=== PATIENT | male | born 1990 | race Caucasian/White ===

== ENCOUNTER 2023-04-14 11:52 | Outpatient (OUT) | payer OTHER, SELFPAY ==
--- NOTE | 2023-04-14 12:03 | XR_ITS ---
The [address] [address] Patient Name: NAWAF MIRANDA MRN: [id number] date: 1990 Sex: M Assigned Patient Location: RAD Current Patient Location: Accession/Order Number: [id number] Exam Date: 04/14/2023 12:05 Report Date: 04/17/2023 11:24 At the request of: VIKAS GARZA Procedure: XR shoulder RT min 2V PROCEDURE: XR shoulder RT min 2V DATE: 04/14/2023 11:05 AM CDT COMPARISONS: None CLINICAL INDICATION: Shoulder Impingement M25.819 FINDINGS: There is no evidence of fractures or other osseous abnormalities. XR/XR shoulder RT min 2V IMPRESSION: Right shoulder radiographs show no evidence of abnormalities. Electronically authenticated by: SUSANNAH SANON Date: 04/17/2023 11:24
== END 2023-04-14 11:53 | disposition home or self-care (01) ==
LOC: RAD 11:58
PROVIDERS: PCP Family Medicine; Visit Provider Family Medicine
DX: M75.41 Impingement syndrome of right shoulder (principal)
CPT/HCPCS: 73030

== ENCOUNTER 2023-05-24 16:47 | Outpatient (OUT) | payer OTHER, SELFPAY ==
--- NOTE | 2023-05-24 | XR_ITS ---
The [address] [address] Patient Name: NAWAF MIRANDA MRN: [id number] date: 1990 Sex: M Assigned Patient Location: [facility] Current Patient Location: [facility] Accession/Order Number: [id number] Exam Date: 05/24/2023 17:55 Report Date: 05/24/2023 18:56 At the request of: VIKAS GARZA Procedure: XR lumbar spine 2-3V EXAM: XR lumbar spine 2-3V HISTORY: LOW BACK PAIN with twisting injury last night. COMPARISON: None. TECHNIQUE: AP and lateral views of the lumbar spine were obtained. FINDINGS: There is normal curvature and alignment of the vertebral bodies throughout the lumbar spine. The vertebral body heights are intact. Very slight osteophytes are seen arising from the vertebral bodies. There is mild narrowing of the L5-S1 disc space and the remainder the disc spaces are intact. No focal abnormality is seen in the vertebral bodies. There is no evidence of a fracture, subluxation or significant degenerative changes in the facets. The posterior elements are intact. XR/XR lumbar spine 2-3V IMPRESSION: No acute fracture or anterior spondylolisthesis. There is mild narrowing of the L5-S1 disc space and minimal degenerative changes are noted in the lower lumbar spine. Comparison with a previous study may be helpful in confirming the chronicity of these findings. Electronically authenticated by: ARIANNA FARR Date: 05/24/2023 18:56
== END 2023-05-24 16:48 | disposition home or self-care (01) ==
PROVIDERS: PCP Family Medicine; Visit Provider Family Medicine
DX: M54.50 Low back pain, unspecified (principal)
CPT/HCPCS: 72100

== ENCOUNTER 2023-05-26 13:57 | Outpatient (RCR) | payer OTHER, SELFPAY | END 2023-06-17 17:06 | disposition home or self-care (01) | LOC: PT 13:57 | PROVIDERS: PCP Family Medicine; Visit Provider Family Medicine | DX: M25.811 Other specified joint disorders, right shoulder (principal) | CPT/HCPCS: 97010; 97014; 97110; 97140; 97161 ==

== ENCOUNTER 2023-06-23 12:19 | Outpatient (OUT) | payer OTHER, SELFPAY ==
--- NOTE | 2023-06-23 12:26 | MR_ITS ---
[address] [address] Patient Name: NAWAF MIRANDA MRN: [id number] date: 1990 Sex: M Assigned Patient Location: MRI Current Patient Location: MRI Accession/Order Number: [id number] Exam Date: 06/23/2023 12:45 Report Date: 06/23/2023 15:25 At the request of: VIKAS GARZA Procedure: MR shoulder RT wo con EXAM: MR shoulder RT wo con HISTORY: Right shoulder impingement M25.811 COMPARISON: Right shoulder radiographs 04/14/2023 TECHNIQUE: Multi planar, multi sequence MRI imaging of the right shoulder without contrast. FINDINGS: ROTATOR CUFF: Supraspinatus: Focal low-grade partial-thickness, partial width interstitial tear at the critical zone with questionable articular sided and extension. The tear measures 0.7 x 1.1 cm AP X TR (sagittal STIR: 9, coronal PD FS: 13). There is associated thinning delaminating intratendinous cyst extending to the supraspinatus muscle belly. Infraspinatus: Intact. Subscapularis: Intact. Teres minor: Intact. MUSCULATURE: Supraspinatus intramuscular cyst as detailed above. Musculature of the rotator cuff is otherwise normal in bulk and signal characteristics. Remaining musculature of the shoulder girdle is normal in bulk and signal characteristics. LONG HEAD BICEPS TENDON: Intact. GLENOID LABRUM: No displaced labral tear or para labral cyst. OSSEOUS STRUCTURES AND JOINTS: No fracture, dislocation, suspicious bone lesion or edema like bone marrow signal. Osseous acromial outlet: Normal alignment of the acromioclavicular joint with mild osteoarthrosis with subchondral cystic changes and bone marrow edema within the distal clavicle and adjacent acromion. Type 2 acromion without significant downsloping. Physiologic fluid within the subacromial-subdeltoid bursa. Glenohumeral joint: No joint effusion. Articular cartilage is intact. OTHER: No axillary lymphadenopathy or soft tissue mass. MR/MR shoulder RT wo con IMPRESSION: 1. Small focal low-grade partial-thickness, partial width interstitial tear of the supraspinatus tendon at the critical zone. Remainder of the rotator cuff is intact. 2. Acromioclavicular joint osteoarthritis with subchondral cystic changes and reactive bone marrow edema, which could be a source for pain. 3. No displaced labral tear. 4. No acute osseous findings. Electronically authenticated by: CHERYL SANDOVAL Date: 06/23/2023 15:25
== END 2023-06-23 12:20 | disposition home or self-care (01) ==
LOC: MRI 12:20
PROVIDERS: PCP Family Medicine; Visit Provider Family Medicine
DX: M25.811 Other specified joint disorders, right shoulder (principal)
CPT/HCPCS: 73221

== ENCOUNTER 2023-06-29 09:04 | Day surgery (SDC) | payer OTHER, SELFPAY ==
--- NOTE | 2023-06-29 09:23 | FL_ITS ---
[address] [address] Patient Name: NAWAF MIRANDA MRN: [id number] date: 1990 Sex: M Assigned Patient Location: [place] Current Patient Location: [place] Accession/Order Number: [id number] Exam Date: 06/29/2023 10:00 Report Date: 06/29/2023 11:01 At the request of: VIKAS GARZA Procedure: FL guided needle placement EXAMINATION: FL shoulder inj RT, FL guided needle placement HISTORY: Right Shoulder Pain COMPARISON: No relevant comparison available. FLUOROSCOPY TIME: TECHNIQUE: A joint injection was performed in the usual sterile manner after obtaining informed consent. Standard level fluoroscopic mode of operation utilized. FINDINGS: JOINT: Right shoulder NEEDLE: 22 gauge, 3.5 spinal needle. MEDICATION: 2cc buffered 1% lidocaine for subcutaneous anesthesia. 2cc Omnipaque-300 iodinated contrast to visualize the joint space. Mixture of Kenalog 40 mg, 0.5% Bupivacaine 3 mL and Omnipaque 300 3mL was injected into the joint space. TECHNIQUE: Anterior approach. A single stick was successful in gaining access to the joint space. CLINICAL: Decreased pain following injection. (7/10 preinjection; 2/10 post injection) COMPLICATIONS: None. OTHER: Negative. FL/FL guided needle placement IMPRESSION: 1. Successful therapeutic right shoulder injection. Electronically authenticated by: ANAI VILLANUEVA Date: 06/29/2023 11:01
--- NOTE | 2023-06-29 09:23 | FL_ITS ---
The [address] [address] Patient Name: NAWAF MIRANDA MRN: [id number] date: 1990 Sex: M Assigned Patient Location: [place] Current Patient Location: [place] Accession/Order Number: [id number] Exam Date: 06/29/2023 10:00 Report Date: 06/29/2023 11:01 At the request of: VIKAS GARZA Procedure: FL shoulder inj RT EXAMINATION: FL shoulder inj RT, FL guided needle placement HISTORY: Right Shoulder Pain COMPARISON: No relevant comparison available. FLUOROSCOPY TIME: TECHNIQUE: A joint injection was performed in the usual sterile manner after obtaining informed consent. Standard level fluoroscopic mode of operation utilized. FINDINGS: JOINT: Right shoulder NEEDLE: 22 gauge, 3.5 spinal needle. MEDICATION: 2cc buffered 1% lidocaine for subcutaneous anesthesia. 2cc Omnipaque-300 iodinated contrast to visualize the joint space. Mixture of Kenalog 40 mg, 0.5% Bupivacaine 3 mL and Omnipaque 300 3mL was injected into the joint space. TECHNIQUE: Anterior approach. A single stick was successful in gaining access to the joint space. CLINICAL: Decreased pain following injection. (7/10 preinjection; 2/10 post injection) COMPLICATIONS: None. OTHER: Negative. FL/FL shoulder inj RT IMPRESSION: 1. Successful therapeutic right shoulder injection. Electronically authenticated by: ANAI VILLANUEVA Date: 06/29/2023 11:01
[2023-06-29] MEDS: LIDOCAINE HCL 10 ML, SODIUM BICARBONATE 1 MEQ INJ (10:10)
== END 2023-06-29 10:25 | disposition home or self-care (01) ==
LOC: FL 09:04
PROVIDERS: Radiology Diagnostic Radiology; PCP Family Medicine; Visit Provider Family Medicine
DX: M25.511 Pain in right shoulder (principal)
CPT/HCPCS: 20610; 77002; Q9967

== ENCOUNTER 2024-01-27 08:56 | Outpatient (OUT) | payer OTHER, SELFPAY ==
--- NOTE | 2024-01-27 | XR_ITS ---
The [address] [address] Patient Name: NAWAF MIRANDA MRN: [id number] date: 1990 Sex: M Assigned Patient Location: CT Current Patient Location: CT Accession/Order Number: [id number] Exam Date: 01/27/2024 09:30 Report Date: 01/30/2024 06:09 At the request of: VIKAS GARZA Procedure: XR acute abdomen series EXAMINATION: XR acute abdomen series HISTORY: Chronic diarrhea K52.9 , nausea, abdominal pain COMPARISON: No relevant comparison available. FINDINGS: LUNGS: No infiltrate, pneumothorax, or pleural effusion. MEDIASTINUM: No abnormal widening. BOWEL GAS PATTERN: Multiple small fluid levels within the ascending and transverse colon; no abnormal bowel dilation or obstruction. FREE AIR: None. CALCIFICATIONS: None significant. BONES: No fracture or visible bone lesion. OTHER: Negative. XR/XR acute abdomen series IMPRESSION: 1. No acute cardiopulmonary process. 2. No bowel obstruction. Mild enteritis/colitis cannot be completely excluded. Electronically authenticated by: ANAI VILLANUEVA Date: 01/30/2024 06:09
--- NOTE | 2024-01-27 | CT_ITS ---
The [address] [address] Patient Name: NAWAF MIRANDA MRN: [id number] date: 1990 Sex: M Assigned Patient Location: CT Current Patient Location: Accession/Order Number: [id number] Exam Date: 01/27/2024 11:00 Report Date: 01/28/2024 12:32 At the request of: VIKAS GARZA Procedure: CT abdomen pelvis w con CT abdomen pelvis w con HISTORY: Chronic diarrhea K52.9 ADDITIONAL HISTORY: None. TECHNIQUE: CTA abdomen and pelvis contrast. 3D coronal slab MIPs and 2D reconstructions in the coronal and sagittal planes were also created. One of the following dose optimization techniques was utilized in the performance of this exam: Automated exposure control; adjustment of the mA and/or kV according to the patient's size; or use of an iterative reconstruction technique. Specific details can be referenced in the facility's radiology CT exam operational policy. COMPARISON: None. FINDINGS: Vessels: Negative Visualized lung bases: Negative Hepatobiliary: Negative Spleen: Negative Adrenals: Negative Pancreas: Negative Kidneys/: Negative GI: Nonspecific proximal small bowel mural thickening suggestive of enteritis or intrinsic small bowel disease. The terminal ileum appears normal. The appendix is visualized and normal. The colonic mucosa is normal. Spaces/nodes: Negative Bones/soft tissues: Negative CT/CT abdomen pelvis w con IMPRESSION: 1. Nonspecific proximal small bowel mural thickening suggestive of enteritis or intrinsic small bowel disease. Electronically authenticated by: LLUVIA PARKER Date: 01/28/2024 12:32
--- OUTSIDE RECORDS SUMMARY | 2024-01-27 08:58 | XMS_ITS | CCD ---
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 Role Phone DR VIKAS BRYANT Primary Care Unavailable SHAHIDA, DR VENKATESH Bettencourt Attending Unavailyoav PINEDO, DR VENKATESH Bettencourt Consulting Unavailyoav PINEDO, DR VENKATESH Bettencourt Admitting Unavailyoav DO, DR CATALINA Ashton Attending Unavailable ERNESTINA, DR CATALINA Ashton Consulting Unavailable ERNESTINA, DR CATALINA Ashton Admitting Unavailable GREG, DR BEAN Primary Care Unavailable Navjot Damian Consulting Unavailable Vikas Bryant MD Primary Care Provider [phone] ASHWINI PEACOCK Referring Unavailable YE ABARCA Admitting Unavailable PARINJA, ARISTIDES Consulting Unavailable SRUTHI ALDRIDGE Attending Unavailable VIKAS BRYANT Primary Care Unavailable GIULIA SUNSHINE Attending Unavailable MARLENE, ARISTIDES Referring Unavailable VIKAS BRYANT Primary Care Unavailable CHER, BEBETO S Consulting Unavailable GIULIA SUNSHINE Admitting Unavailable MARLENE, ARISTIDES Consulting Unavailable VIKAS BRYANT Primary Care Unavailable LISANDRA OSHEA Attending Unavailable VIKAS BRYANT Primary Care Unavailable LISANDRA OSHEA Attending Unavailable LISANDRA OSHEA Referring Unavailable VIKAS BRYANT Primary Care Unavailable Allergies Allergy Classification Reported Allergen(s) Allergy Type Date of Onset Reaction(s) Facility Pollen (1 source) Bee pollen Substance Allergy [facility] (3 sources) Insect Extract Allergy Skin Test Propensity to adverse reactions to drug 8 [facility] (1 source) Ciprofloxacin; Translations: [CIPROFLOXACIN] Drug Allergy 3 [facility] Rep[facility] Medications Current Medications Medication Drug Class(es) Dates Sig (Normalized) Sig (Original) chlorhexidine gluconate 1.2 mg/ml mouthwash (1 source) Start: 07-31-2022 End: 08-14-2022 take 15 mL by mouth twice daily chlorhexidine (PERIDEX) 0.12 % solution Take 15 mLs by mouth 2 times daily for 14 days 420 mL 0 07/31/2022 08/14/2022 Active clindamycin 300 mg oral capsule (2 sources) Lincosamide Antibacterial Start: 07-31-2022 End: 08-10-2022 take 1 capsule by mouth three times daily clindamycin (CLEOCIN) 300 MG capsule Take 1 capsule by mouth 3 times daily for 10 days 30 capsule 0 07/31/2022 08/10/2022 Active Start: 07-31-2022 End: 07-31-2022 clindamycin (CLEOCIN) capsul e 300 mg hydrOXYzine pamoate 25 mg oral capsule (3 sources) Antihistamine take 1 capsule by mouth three times daily as needed hydrOXYzine pamoate (VISTARIL) 25 MG capsule Take 25 mg by mouth 3 times daily as needed for Itching 0 Active lisinopril 5 mg oral tablet (3 sources) Angiotensin Converting Enzyme Inhibitor take 1 tablet by mouth once daily lisinopril (PRINIVIL;ZESTRIL) 5 MG tablet Take 5 mg by mouth daily 0 Active melatonin 3 mg oral tablet (3 sources) take 1 tablet by mouth once daily melatonin 3 MG TABS tablet Take 3 mg by mouth daily 0 Active 24 hr nicotine 0.875 mg/hr transdermal system (2 sources) Cholinergic Nicotinic Agonist Start: 07-31-20 End: 08-10-20 apply 1 dose transdermal route once daily nicotine (NICODERM CQ) 21 MG/24HR Place 1 patch onto the skin daily for 10 days 10 patch 0 07/31/2022 08/10/2022 Active Start: 07-31-2022 nicotine (KEVIN DERM CQ) 21 MG/24HR 1 patch Completed/Discontinued Medications Medication Drug Class(es) Dates Sig (Normalized) Sig (Original) 1 ml ketorolac tromethamine 30 mg/ml cartridge (1 source) Nonsteroidal Anti-inflammatory Drug, Cyclooxygenase Inhibitor Start: 07-31-2022 End: 07-31-2022 ketorolac (TORADOL) injection 30 mg Problems Active Problems Problem Classification Problem Date Documented Da te Episodic/Chronic Cardiac dysrhythmias (1 source) Tachycardia, unspecified; Translations: [Tachycardia, unspecified] Onset: 11-05-2023 Episodic Disorders of teeth and jaw (2 sources) Toothache; Translations: [Other specified disorders of teeth and supporting structures] Episodic E Codes: Cut/pierceb (1 source) Contact with other powered hand tools and household machinery, initial encounter; Translations: [CONTACT OTH POWER HT AND HH MACH INIT] Onset: 02-09-2021 Episodic Esophageal disorders (1 source) Gastro-esophageal reflux disease without esophagitis; Translations: [Gastro-esophageal reflux disease without esophagitis] Onset: 01-12-2024 Chronic Essential hypertension (2 sources) Essential (primary) hypertension; Translations: [ESSENTIAL PRIMARY HYPERTENSION] Onset: 06-12-2020 Chronic Gastritis and duodenitis (1 source) Acute gastritis without bleeding; Translations: [Acute gastritis without bleeding] Onset: 11-05-2023 Episodic Gastrointestinal hemorrhage (1 source) Hematemesis; Translations: [Hematemesis] Onset: 11-05-2023 Episodic Immunizations and screening for infectious disease (1 source) Encounter for immunization; Translations: [ENCOUNTER FOR IMMUNIZATION] Onset: 02-09-2021 Episodic Mood disorders (2 sources) Unspecified mood [affective] disorder; Translations: [Unspecified mood (affective) disorder] Onset: 09-01-2022 Chronic Nausea and vomiting (1 source) Nausea Onset: 01-12-2024 Episodic Open wounds of extremities (4 sources) Puncture wound without foreign body of left hand, initial encounter; Translations: [PUNCTURE WOUND W/O FB LT HAND INIT] Onset: 02-05-2021 Episodic Other disorders of stomach and duodenum (1 source) Functional dyspepsia; Translations: [Functional dyspepsia] Onset: 01-12-2024 Episodic Other nervous system disorders (1 source) Other chronic pain; Translations: [Other chronic pain] Onset: 01-12-2024 Chronic Other non-traumatic joint disorders (1 source) Pain in right shoulder; Translations: [Pain in right shoulder] Onset: 01-12-2024 Episodic Poisoning by other medications and drugs (2 sources) Poisoning by unspecified drugs, medicaments and biological substances, accidental (unintentional), initial encounter; Translations: [Poisoning by unspecified drugs, medicaments and biological substances, accidental (unintentional), initial encounter] Onset: 11-27-2022 Episodic Sprains and strains (1 source) Sprain of left wrist; Translations: [Unspecified sprain of left wrist, subsequent encounter] Episodic Substance-related disorders (1 source) Nicotine dependence, cigarettes, uncomplicated; Translations: [NICOTINE DEPEND CIGARETTES UNCOMP] Onset: 02-09-2021 Chronic Unclassified (1 source) Vomitting Onset: 01-12-2024 Past or Other Problems Problem Classification Problem Date Documented Da te Episodic/Chronic E Codes: Struck by; against (1 source) Striking against or struck by other objects, initial encounter; Translations: [STRIKING AGNST/STRUCK OTH OBJ INIT] Onset: 06-12-2020 Episodic Other injuries and conditions due to external causes (3 sources) Unspecified injury of right eye and orbit, initial encounter; Translations: [UNS INJURY RT EYE ORBIT INITIAL ENC] Onset: 06-07-2020 Episodic Substance-related disorders (3 sources) Finding related to substance use; Translations: [Other psychoactive substance use, unspecified, uncomplicated] Onset: 06-07-2018 06-07-2018 Episodic Superficial injury; contusion (1 source) Contusion of eyeball and orbital tissues, right eye, initial encounter; Translations: [CONTUS EYEBALL ORB TISS RT EYE INIT] Onset: 06-12-2020 Episodic Results Test Name Value Interpretation Reference Range Facility CBC AND AUTO DIFFon 01-12-20 24 ABSOLUTE BASOPHIL 0.0 X10E9/L Normal 0.0-0.2 [facility] Comment on above: Performed By: #### 1 9123-9, CBCA, 3040-3, CMP #### [facility] ([id number]) [address] [place] [address] 20971 ABSOLUTE NEUTROPHIL 3.9 X10E9/L Normal 1.5-6.6 [facility] Comment on above: Performed By: #### 1 9123-9, CBCA, 3040-3, CMP #### [facility] ([id number]) [address] [place] [address] 14124 Basophils/100 WBC (Bld) 0.2 % Normal [facility] Comment on above: Performed By: #### 1 9123-9, CBCA, 3040-3, CMP #### [facility] ([id number]) [address] [place] [address] 89533 Eosinophils (Bld) [#/Vol] 0.1 10*3/uL Normal 0.0-0.4 [facility] Comment on above: Performed By: #### 1 9123-9, CBCA, 3040-3, CMP #### [facility] ([id number]) [address] [place] [address] 09139 Eosinophils/100 WBC (Bld) 0.9 % Normal [facility] Comment on above: Performed By: #### 1 9123-9, CBCA, 3040-3, CMP #### [facility] ([id number]) [address] [place] [address] 65401 Erythrocyte distribution width (RBC) [Ratio] 13.9 % Normal 11.5-15.0 [facility] Comment on above: Performed By: #### 1 9123-9, CBCA, 3040-3, CMP #### [facility] ([id number]) [address] [place] [address] 05489 Hematocrit (Bld) [Volume fraction] 34.8 % Low 39-49 [facility] Comment on above: Performed By: #### 1 9123-9, CBCA, 3040-3, CMP #### [facility] ([id number]) [address] [place] [address] 82448 Hemoglobin (Bld) [Mass/Vol] 12.4 g/dL Low 13.0-17.0 [facility] Comment on above: Performed By: #### 1 9123-9, CBCA, 3040-3, CMP #### [facility] ([id number]) [address] [place] [address] 71251 Lymphocytes (Bld) [#/Vol] 1.3 10*3/uL Normal 1.0-3.5 [facility] Comment on above: Performed By: #### 1 91-9, CBCA, 3040-3, CMP #### [facility] ([id number]) [address] [place] [address] 25851 Lymphocytes/100 WBC (Bld) 22.0 % Normal [facility] Comment on above: Performed By: #### 1 9122-9, CBCA, 3040-3, CMP #### [facility] ([id number]) [address] [place] [address] 41486 MCH (RBC) [Entitic mass] 33.2 pg Normal 27-34 [facility] Comment on above: Performed By: #### 1 9122-9, CBCA, 3040-3, CMP #### [facility] ([id number]) [address] [place] [address] 30643 MCHC (RBC) [Mass/Vol] 35.5 g/dL Normal 32-36 [facility] Comment on above: Performed By: #### 1 9122-9, CBCA, 3040-3, CMP #### [facility] ([id number]) [address] [place] [address] 20085 MCV (RBC) [Entitic vol] 93 fL Normal 80-100 [facility] Comment on above: Performed By: #### 1 9122-9, CBCA, 3040-3, CMP #### [facility] ([id number]) [address] [place] [address] 20535 Monocytes (Bld) [#/Vol] 0.6 10*3/uL Normal 0-0.9 [facility] Comment on above: Performed By: #### 1 9122-9, CBCA, 3040-3, CMP #### [facility] ([id number]) [address] [place] [address] 69659 Monocytes/100 WBC (Bld) 9.6 % Normal [facility] Comment on above: Performed By: #### 1 9123-9, CBCA, 3040-3, CMP #### [facility] ([id number]) [address] [place] [address] 07403 Neutrophils/100 WBC (Bld) 67.3 % Normal [facility] Comment on above: Performed By: #### 1 9123-9, CBCA, 3040-3, CMP #### [facility] ([id number]) [address] [place] [address] 21292 Platelet mean volume (Bld) [Entitic vol] 7.9 fL Normal 7-12 [facility] Comment on above: Performed By: #### 1 9123-9, CBCA, 3040-3, CMP #### [facility] ([id number]) [address] [place] [address] 06662 Platelets (Bld) [#/Vol] 263 10*3/uL Normal 150-450 [facility] Comment on above: Performed By: #### 1 9123-9, CBCA, 3040-3, CMP #### [facility] ([id number]) [address] [place] [address] 81473 RBC COUNT 3.73 X10E12/L Low 4.10-5.70 [facility] Comment on above: Performed By: #### 1 9123-9, CBCA, 3040-3, CMP #### [facility] ([id number]) [address] [place] [address] 26624 WBC (Bld) [#/Vol] 5.8 10*3/uL Normal 4.0-11.0 [facility] Comment on above: Performed By: #### 1 9123-9, CBCA, 3040-3, CMP #### [facility] ([id number]) [address] [place] [address] 17724 COMPREHENSIVE METABOLIC PANE David 01-12-2024 Albumin [Mass/Vol] 4.0 g/dL Normal 3.2-5.3 [facility] Comment on above: Performed By: #### 1 9123-9, CBCA, 3040-3, CMP #### [facility] ([id number]) [address] [place] [address] 66291 ALP [Catalytic activity/Vol] 39 U/L Normal 39-130 [facility] Comment on above: Performed By: #### 1 91-9, CBCA, 3040-3, CMP #### [facility] ([id number]) [address] [place] [address] 49977 ALT [Catalytic activity/Vol] 31 U/L Normal 0-40 [facility] Comment on above: Performed By: #### 1 91-9, CBCA, 3040-3, CMP #### [facility] ([id number]) [address] [place] [address] 78944 Anion gap [Moles/Vol] 2 mmol/L Low 5-15 [facility] Comment on above: Performed By: #### 1 9123-9, CBCA, 3040-3, CMP #### [facility] ([id number]) [address] [place] [address] 69908 AST [Catalytic activity/Vol] 24 U/L Normal 0-41 [facility] Comment on above: Performed By: #### 1 9123-9, CBCA, 3040-3, CMP #### [facility] ([id number]) [address] [place] [address] 04078 Bilirubin [Mass/Vol] 0.7 mg/dL Normal 0.3-1.2 [facility] Comment on above: Performed By: #### 1 9123-9, CBCA, 3040-3, CMP #### [facility] ([id number]) [address] [place] [address] 58012 Calcium [Mass/Vol] 8.9 mg/dL Normal 8.5-10.5 [facility] Comment on above: Performed By: #### 1 9123-9, CBCA, 3040-3, CMP #### [facility] ([id number]) [address] [place] [address] 83712 Chloride [Moles/Vol] 111 mmol/L High 98-109 [facility] Comment on above: Performed By: #### 1 91-9, CBCA, 3040-3, CMP #### [facility] ([id number]) [address] [place] [address] 24540 CO2 [Moles/Vol] 28 mmol/L Normal 22-32 [facility] Comment on above: Performed By: #### 1 91-9, CBCA, 3040-3, CMP #### [facility] ([id number]) [address] [place] [address] 60042 Creatinine [Mass/Vol] 1.02 mg/dL Normal 0.70-1.20 [facility] Comment on above: Result Comment: METH OD TRACEABLE TO IDMS STANDARD Performed By: #### 1 9123-9, CBCA, 3040-3, CMP #### [facility] ([id number]) [address] [place] [address] 65947 eGFR (CKD-EPI) NON-RACE DEPENDENT >90 Normal >59 [facility] Comment on above: Result Comment: Reported eGFR is based on the CKD-EPI 2021 equation that does not use a race coefficient. Performed By: #### 1 9123-9, CBCA, 3040-3, CMP #### [facility] ([id number]) [address] [place] [address] 28301 Glucose [Mass/Vol] 99 mg/dL Normal 65-99 [facility] Comment on above: Performed By: #### 1 9123-9, CBCA, 3040-3, CMP #### [facility] ([id number]) [address] [place] [address] 42123 Potassium [Moles/Vol] 3.9 mmol/L Normal 3.5-5.0 [facility] Comment on above: Performed By: #### 1 9123-9, CBCA, 3040-3, CMP #### [facility] ([id number]) [address] [place] [address] 10442 Protein [Mass/Vol] 6.7 g/dL Normal 6.0-8.0 [facility] Comment on above: Performed By: #### 1 9123-9, CBCA, 3040-3, CMP #### [facility] ([id number]) [address] [place] [address] 46707 Sodium [Moles/Vol] 141 mmol/L Normal 134-146 [facility] Comment on above: Performed By: #### 1 9123-9, CBCA, 3040-3, CMP #### [facility] ([id number]) [address] [place] [address] 37856 Urea nitrogen [Mass/Vol] 24 mg/dL High 5-23 [facility] Comment on above: Performed By: #### 1 9123-9, CBCA, 3040-3, CMP #### [facility] ([id number]) [address] [place] [address] 82047 LIPASEon 01-12-2024 Lipase [Catalytic activity/Vol] 30 U/L Normal 17-40 [facility] Comment on above: Performed By: #### 1 9123-9, CBCA, 3040-3, CMP #### [facility] ([id number]) [address] [place] [address] 01131 MAGNESIUMon 01-12-2024 Magnesium [Mass/Vol] 1.8 mg/dL Normal 1.8-2.6 [facility] Comment on above: Performed By: #### 1 9123-9, CBCA, 3040-3, CMP #### [facility] ([id number]) [address] [facility] [place], [place] [address] XR CHEST 1 VWon 01-12-2024 XR CHEST 1 VW XR CHEST 1 VW Single view chest History:Atypical chest pain; rule out perforation Difficulty breathing, shortness of breath Comparison: 09/07/2020 Findings: Single portable view of the chest. Stable cardiomediastinal silhouette. No focal opacity, effusion or pneumothorax. The lower neck endotracheal is obscured by overlying jewelry. Impression: No evidence of acute cardiopulmonary process. Finalized by Johan Manrique MD on 01/12/2024 4:37 AM Normal [facility] Thyroxine, Freeon 11-06-2023 Thyroxine, Free 1.8 ng/dL High 0.9-1.7 [facility] Comment on above: Performed By: #### T SH #### [facility] [address] [place] [address] [place] [address] Rn Hemodialysis Charge: Mohinder Rodriguez MD #### FT4 #### [address] [id number] Rn Hemodialysis Charge: Stephan Darby MD APTTon 11-05-2023 aPTT Coag (Bld) [Time] 24.7 s Low 26.8-34.8 [facility] Comment on above: Result Comment: IV Heparin Therapy Range: 62.0-94.0 Performed By: #### U MICAO, UAX #### [facility] [address] [place] [address] [place] [address] Rn Hemodialysis Charge: Mohinder Rodriguez MD CBC with Diffon 11-05-2023 Abs. Basophil 0.05 k/uL Normal 0.00-0.20 [facility] Comment on above: Performed By: #### C P, PTT, PT, CDP, MG, DIME, TROPI #### [facility] [address] [place] [address] [place] [address] Rn Hemodialysis Charge: Mohinder Rodriguez MD Abs. Eosinophil <0.03 Normal 0.00-0.44 [facility] Comment on above: Performed By: #### C P, PTT, PT, CDP, MG, DIME, TROPI #### [facility] [address] [place], [place] [id number] Rn Hemodialysis Charge: Mohinder Rodriguez MD Abs.Imm.Granulocyt e 0.03 k/uL Normal 0.00-0.30 [facility] Comment on above: Performed By: #### C P, PTT, PT, CDP, MG, DIME, TROPI #### [facility] [address] [place], [facility] Rn Hemodialysis Charge: Mohinder Rodriguez MD Abs.Neutrophil (Seg) 7.19 k/uL Normal 1.50-8.10 [facility] Comment on above: Performed By: #### C P, PTT, PT, CDP, MG, DIME, TROPI #### [address] [place], [facility] Rn Hemodialysis Charge: Mohinder Rodriguez MD Basophils/100 WBC (Bld) 1 % Normal 0-2 [facility] Comment on above: Performed By: #### C P, PTT, PT, CDP, MG, DIME, TROPI #### [address] [place] [address] Rn Hemodialysis Charge: Mohinder Rodriguez MD Eosinophils/100 WBC (Bld) 0 % Low 1-4 [facility] Comment on above: Performed By: #### C P, PTT, PT, CDP, MG, DIME, TROPI #### [address] [place] [address] Rn Hemodialysis Charge: Mohinder Rodriguez MD Erythrocyte distribution width (RBC) [Ratio] 11.9 % Normal 11.8-14.4 [facility] Comment on above: Performed By: #### C P, PTT, PT, CDP, MG, DIME, TROPI #### [facility] [address] [place], [place] [address] Rn Hemodialysis Charge: Mohinder Rodriguez MD Hematocrit (Bld) [Volume fraction] 43.8 % Normal 40.7-50.3 [facility] Comment on above: Performed By: #### C P, PTT, PT, CDP, MG, DIME, TROPI #### [facility] [address] [place], [facility] Rn Hemodialysis Charge: Mohinder Rodriguez MD Hemoglobin (Bld) [Mass/Vol] 15.1 g/dL Normal 13.0-17.0 [facility] Comment on above: Performed By: #### C P, PTT, PT, CDP, MG, DIME, TROPI #### [facility] [address] [place], [facility] Rn Hemodialysis Charge: Mohinder Rodriguez MD Immature granulocytes/100 WBC (Bld) 0 % Normal 0 [facility] Comment on above: Performed By: #### C P, PTT, PT, CDP, MG, DIME, TROPI #### [address] [place], [facility] Rn Hemodialysis Charge: Mohinder Rodriguez MD Lymphocytes (Bld) [#/Vol] 1.58 10*3/uL Normal 1.10-3.70 [facility] Comment on above: Performed By: #### C P, PTT, PT, CDP, MG, DIME, TROPI #### [facility] [address] [place], [facility] Rn Hemodialysis Charge: Mohinder Rodriguez MD Lymphocytes/100 WBC (Bld) 16 % Low 24-43 [facility] Comment on above: Performed By: #### C P, PTT, PT, CDP, MG, DIME, TROPI #### [facility] [address] [place] [address] Rn Hemodialysis Charge: Mohinder Rodriguez MD MCH (RBC) [Entitic mass] 32.5 pg Normal 25.2-33.5 [facility] Comment on above: Performed By: #### C P, PTT, PT, CDP, MG, DIME, TROPI #### [facility] [address] [place], [facility] Rn Hemodialysis Charge: Mohinder Rodriguez MD MCHC (RBC) [Mass/Vol] 34.5 g/dL Normal 28.4-34.8 [facility] Comment on above: Performed By: #### C P, PTT, PT, CDP, MG, DIME, TROPI #### [facility] [address] [place], [facility] Rn Hemodialysis Charge: Mohinder Rodriguez MD MCV (RBC) [Entitic vol] 94.2 fL Normal 82.6-102.9 [facility] Comment on above: Performed By: #### C P, PTT, PT, CDP, MG, DIME, TROPI #### [address] [place], [facility] Rn Hemodialysis Charge: Mohinder Rodriguez MD Monocytes (Bld) [#/Vol] 1.15 10*3/uL Normal 0.10-1.20 [facility] Comment on above: Performed By: #### C P, PTT, PT, CDP, MG, DIME, TROPI #### [address] [place], [place] [address] Rn Hemodialysis Charge: Mohinder Rodriguez MD Monocytes/100 WBC (Bld) 12 % Normal 3-12 [facility] Comment on above: Performed By: #### C P, PTT, PT, CDP, MG, DIME, TROPI #### [address] [place], [facility] Rn Hemodialysis Charge: Mohinder Rodriguez MD Neutrophil (Seg) 71 % High 36-65 [facility] Comment on above: Performed By: #### C P, PTT, PT, CDP, MG, DIME, TROPI #### [address] [place] [address] Rn Hemodialysis Charge: Mohinder Rodriguez MD NRBC Automated 0.0 per 100 WBC Normal 0.0 [facility] Comment on above: Performed By: #### C P, PTT, PT, CDP, MG, DIME, TROPI #### [facility] [address] [place] [address] Rn Hemodialysis Charge: Mohinder Rodriguez MD Platelet mean volume (Bld) [Entitic vol] 9.9 fL Normal 8.1-13.5 [facility] Comment on above: Performed By: #### C P, PTT, PT, CDP, MG, DIME, TROPI #### [address] [place], [place] [id number] Rn Hemodialysis Charge: Mohinder Rodriguez MD Platelets (Bld) [#/Vol] 229 10*3/uL Normal 138-453 [facility] Comment on above: Performed By: #### C P, PTT, PT, CDP, MG, DIME, TROPI #### [address] [place], [place] [id number] Rn Hemodialysis Charge: Mohinder Rodriguez MD RBC (Bld) [#/Vol] 4.65 10*6/uL Normal 4.21-5.77 [facility] [facility] Comment on above: Performed By: #### C P, PTT, PT, CDP, MG, DIME, TROPI #### [facility] [address] [place], [place] [id number] Rn Hemodialysis Charge: Mohinder Rodriguez MD WBC (Bld) [#/Vol] 10.0 10*3/uL Normal 3.5-11.3 [facility] Comment on above: Performed By: #### C P, PTT, PT, CDP, MG, DIME, TROPI #### [facility] [address] [place] [address] Rn Hemodialysis Charge: Mohinder Rodriguez MD CT ABDOMEN PELVIS W IV CONTR Erlin 11-05-2023 CT ABDOMEN PELVIS W IV CONTRAST EXAMINATION: CT OF THE ABDOMEN AND PELVIS WITH CONTRAST 11/05/2023 5:19 pm TECHNIQUE: CT of the abdomen and pelvis was performed with the administration of intravenous contrast. Multiplanar reformatted images are provided for review. Automated exposure control, iterative reconstruction, and/or weight based adjustment of the mA/kV was utilized to reduce the radiation dose to as low as reasonably achievable. COMPARISON: None. HISTORY: ORDERING SYSTEM PROVIDED HISTORY: periumbilical pain TECHNOLOGIST PROVIDED HISTORY: periumbilical pain Decision Support Exception - unselect if not a suspected or confirmed emergency medical condition->Emergency Medical Condition (MA) FINDINGS: Lower Chest: No acute abnormality. Liver: Normal. Gallbladder and Bile Ducts: Normal. Spleen: Normal. Adrenal Glands: Normal. Pancreas: Normal. Genitourinary: Normal. Bowel: Normal caliber bowel. Normal appendix. Mild colonic diverticulosis. No acute diverticulitis. Vasculature: Minimal atherosclerosis. Normal caliber abdominal aorta. Patent portal vein. Bones and Soft Tissues: No acute abnormality. Retroperitoneum/Mesent schuyler: No intraperitoneal free air, ascites or fluid collection. No lymphadenopathy in the abdomen or pelvis. IMPRESSION: 1. No acute abnormality in the abdomen or pelvis. 2. Normal caliber bowel and normal appendix. Interpreted by: Yoseph Putnam DO Signed by: Yoseph Putnam DO 11/05/23 Final result Normal [facility] CT CHEST PULMONARY EMBOLISM W CONTRASTon 11-05-2023 CT CHEST PULMONARY EMBOLISM W CONTRAST EXAMINATION: CTA OF THE CHEST 11/05/2023 4:45 pm TECHNIQUE: CTA of the chest was performed after the administration of intravenous contrast. Multiplanar reformatted images are provided for review. MIP images are provided for review. Automated exposure control, iterative reconstruction, and/or weight based adjustment of the mA/kV was utilized to reduce the radiation dose to as low as reasonably achievable. COMPARISON: None. HISTORY: ORDERING SYSTEM PROVIDED HISTORY: hematemesis . borderline ddimer, tachycardia TECHNOLOGIST PROVIDED HISTORY: hematemesis . borderline ddimer, tachycardia Additional Contrast?->1 FINDINGS: Pulmonary Arteries: Pulmonary arteries are adequately opacified for evaluation. No evidence of intraluminal filling defect to suggest pulmonary embolism. Main pulmonary artery is normal in caliber. Mediastinum: No evidence of mediastinal lymphadenopathy. The heart and pericardium demonstrate no acute abnormality. There is no acute abnormality of the thoracic aorta. Lungs/pleura: The lungs are without acute process. No focal consolidation or pulmonary edema. No evidence of pleural effusion or pneumothorax. Upper Abdomen: Limited images of the upper abdomen are unremarkable. Soft Tissues/Bones: No acute bone or soft tissue abnormality. IMPRESSION: No evidence of pulmonary embolism or acute pulmonary abnormality. Interpreted by: Yoseph Putnam DO Signed by: Yoseph Putnam DO 11/05/23 Final result Normal [facility] Comp Metabolic Profon 2023 Calcium [Mass/Vol] 9.4 mg/dL Normal 8.6-10.4 [facility] Comment on above: Performed By: #### U MICAO, UAX #### [facility] [address] [place] [address] Rn Hemodialysis Charge: Mohinder Rodriguez MD Albumin [Mass/Vol] 4.6 g/dL Normal 3.5-5.2 [facility] Comment on above: Performed By: #### U MICAO, UAX #### [facility] [address] [place], [place] [id number] Rn Hemodialysis Charge: Mohinder Rodriguez MD Albumin/Glob Ratio 1.6 Normal 1.0-2.5 [facility] Comment on above: Performed By: #### U MICAO, UAX #### [facility] [address] [place] [address] Rn Hemodialysis Charge: Mohinder Rodriguez MD Alkaline Phos 44 U/L Normal 40-129 [facility] Comment on above: Performed By: #### U MICAO, UAX #### [facility] [address] [place], [place] [id number] Rn Hemodialysis Charge: Mohinder Rodriguez MD ALT [Catalytic activity/Vol] 88 U/L High 5-41 [facility] Comment on above: Performed By: #### U MICAO, UAX #### [facility] [address] [place] [address] Rn Hemodialysis Charge: Mohinder Rodriguez MD Anion gap [Moles/Vol] 11 mmol/L Normal 9-17 [facility] Comment on above: Performed By: #### U MICAO, UAX #### [facility] [address] [place], [place] [id number] Rn Hemodialysis Charge: Mohinder Rodriguez MD AST [Catalytic activity/Vol] 91 U/L High <40 [facility] Comment on above: Performed By: #### U MICAO, UAX #### [facility] [address] [place], [place] [id number] Rn Hemodialysis Charge: Mohinder Rodriguez MD Bilirubin [Mass/Vol] 0.3 mg/dL Normal 0.3-1.2 [facility] Comment on above: Performed By: #### U MICAO, UAX #### [facility] [address] [place] [address] Rn Hemodialysis Charge: Mohinder Rodriguez MD BUN/CRE Ratio 23 High 9-20 [facility] Comment on above: Performed By: #### U MICAO, UAX #### [facility] [address] [place], [place] [id number] Rn Hemodialysis Charge: Mohinder Rodriguez MD Chloride [Moles/Vol] 98 mmol/L Normal 98-107 [facility] Comment on above: Performed By: #### U MICAO, UAX #### [facility] [address] [place], [place] [id number] Rn Hemodialysis Charge: Mohinder Rodriguez MD CO2 [Moles/Vol] 28 mmol/L Normal 20-31 [facility] Comment on above: Performed By: #### U MICAO, UAX #### [facility] [address] [place] [address] Rn Hemodialysis Charge: Mohinder Rodriguez MD Creatinine [Mass/Vol] 0.8 mg/dL Normal 0.7-1.2 [facility] Comment on above: Performed By: #### U MICAO, UAX #### [facility] [address] [place] [address] Rn Hemodialysis Charge: Mohinder Rodriguez MD GFR/1.73 sq M.predicted among non-blacks MDRD (S/P/Bld) [Vol rate/Area] mL/min/{1.73_m2} Normal >60 [facility] Comment on above: Result Comment: These results are not intended for use in patients <18 years of age. eGFR results are calculated without a race factor using the 2020 CKD-EPI equation. Careful clinical correlation is recommended, particularly when comparing to results calculated using previous equations. The CKD-EPI equation is less accurate in patients with extremes of muscle mass, extra-renal metabolism of creatine, excessive creatine ingestion, or following therapy that affects renal tubular secretion. Performed By: #### U IBETH UAX #### [facility] [address] [place] [address] [place] [address] Rn Hemodialysis Charge: Mohinder Rodriguez MD Glucose [Mass/Vol] 94 mg/dL Normal 70-99 [facility] Comment on above: Performed By: #### U IBETH UAX #### [facility] [address] [place] [address] Rn Hemodialysis Charge: Mohinder Rodriguez MD Potassium [Moles/Vol] 3.3 mmol/L Low 3.7-5.3 [facility] Comment on above: Performed By: #### U IBETH UAX #### [facility] [address] [place] [address] Rn Hemodialysis Charge: Mohinder Rodriguez MD Protein [Mass/Vol] 7.4 g/dL Normal 6.4-8.3 [facility] Comment on above: Performed By: #### U IBETH UAX #### [facility] [address] [place] [address] Rn Hemodialysis Charge: Mohinder Rodriguez MD Sodium [Moles/Vol] 137 mmol/L Normal 135-144 [facility] Comment on above: Performed By: #### U MICAO, UAX #### [facility] [address] [place] [address] Rn Hemodialysis Charge: Mohinder Rodriguez MD Urea nitrogen [Mass/Vol] 18 mg/dL Normal 6-20 [facility] Comment on above: Performed By: #### Larisa CRISTINA UAX #### [facility] [address] [place] [address] Rn Hemodialysis Charge: Mohinder Rodriguez MD D-Dimer Teston 11-05-2023 D-Dimer Test 0.58 ug/mL FEU Normal 0.00-0.59 [facility] Comment on above: Result Comment: When combined with a low clinical probability, a D dimer value of <0.50 ug/mL FEU is considered negative for DVT and PE (negative predictive value of 98%, sensitivity of 97%). If this test is not being used to help rule out DVT and PE, then the following reference range should be utilized: 0.00 - 0.59 ug/mL FEU. The D-Dimer assay is intended for use as an aid in the diagnosis of venous thromboembolism (DVT and PE) and the results should be interpreted in conjunction with the patient's medical history, clinical presentation, and other findings. Elevated levels of D-dimer activity can be seen in any state of coagulation activation and is not recommended in patients with therapeutic dose anticoagulant therapy for >24 hours, fibrinolytic therapy within the previous 7 days, trauma or surgery within the previous 4 weeks, disseminated malignancies, aortic aneurysm, sepsis, severe infections, pneumonia, severe skin infections, liver cirrhosis, advanced age, coronary disease, diabetes, and . A very low percentage of patients with DVT may yield D-dimer results below the cutoff of 0.5 ug/mL FEU. This is known to be more prevalent in patients with distal DVT. Performed By: #### Larisa CRISTINA UAX #### [facility] [address] [place] [address] Rn Hemodialysis Charge: Mohinder Rodriguez MD Magnesiumon 11-05-2023 Magnesium [Mass/Vol] 1.8 mg/dL Normal 1.6-2.6 [facility] Comment on above: Performed By: #### U MICAO, UAX #### [address] [place], [place] [id number] Rn Hemodialysis Charge: Mohinder Rodriguez MD Occ Bld, Fecal Scrnon 2023 Occult Blood 1 Negative Normal NEG [facility] Comment on above: Performed By: #### O BS #### [address] [place], [facility] Rn Hemodialysis Charge: Mohinder Rodriguez MD PTon 11-05-2023 INR Coag (PPP) [Relative time] 0.9 {INR} Normal [facility] Comment on above: Result Comment: Therapeutic Range: Moderate Anticoagulant Intensity: INR = 2.0-3.0 High Anticoagulant Intensity: INR = 2.5-3.5 Performed By: #### C P, PTT, PT, CDP, MG, DIME, TROPI #### [address] [place], [facility] Rn Hemodialysis Charge: Mohinder Rodriguez MD PT Coag (PPP) [Time] 12.5 s Normal 11.9-14.8 [facility] Comment on above: Performed By: #### C P, PTT, PT, CDP, MG, DIME, TROPI #### [address] [place], [place] [address] Rn Hemodialysis Charge: Mohinder Rodriguez MD Thyroid Stim. Horm.on 2023 Thyroid Stim. Horm. 1.17 uIU/mL Normal 0.30-5.00 [facility] Comment on above: Performed By: #### T SH #### [address] [place], [facility] Rn Hemodialysis Charge: Mohinder Rodriguez MD #### FT4 #### [address] [id number] Rn Hemodialysis Charge: Stephan Darby MD Troponinon 11-05-2023 Troponin, High Sens 8 ng/L Normal 0-22 [facility] Comment on above: Result Comment: High Sensitivity Troponin values cannot be compared with other Troponin methodologies. Performed By: #### U MICAO, UAX #### [facility] [address] [place], [place] [id number] Rn Hemodialysis Charge: Mohinder Rodriguez MD UA w/Reflex Cultureon 2023 Bilirubin, SemiQt,Ur Negative Normal NEG [facility] Comment on above: Performed By: #### U MICAO, UAX #### [facility] [address] [place], [place] [id number] Rn Hemodialysis Charge: Mohinder Rodriguez MD Blood, Urine Negative Normal NEG [facility] Comment on above: Performed By: #### U MICAO, UAX #### [facility] [address] [place], [place] [address] Rn Hemodialysis Charge: Mohinder Rodriguez MD Clarity (U) Clear Normal CLEAR [facility] Comment on above: Performed By: #### U MICAO, UAX #### [facility] [address] [place], [place] [phone] Rn Hemodialysis Charge: Mohinder Rodriguez MD Color (U) Yellow Normal YEL [facility] Comment on above: Performed By: #### U MICAO, UAX #### [facility] [address] [place], [place] [phone] Rn Hemodialysis Charge: Mohinder Rodriguez MD Glucose Ql (U) Negative Normal NEG [facility] Comment on above: Performed By: #### U MICAO, UAX #### [facility] [address] [place], [place] [id number] Rn Hemodialysis Charge: Mohinder Rodriguez MD Ketones Ql (U) 1+ mg/dL Abnormal NEG [facility] Comment on above: Performed By: #### U MICAO, UAX #### [facility] [address] [place], [place] [phone] Rn Hemodialysis Charge: Mohinder Rodriguez MD Leukocyte esterase Test strip Ql (U) Negative Normal NEG [facility] Comment on above: Performed By: #### U MICAO, UAX #### [facility] [address] [place] [address] Rn Hemodialysis Charge: Mohinder Rodriguez MD Nitrite,Ur Negative Normal NEG [facility] Comment on above: Performed By: #### U MICAO, UAX #### [facility] [address] [place], [place] [id number] Rn Hemodialysis Charge: Mohinder Rodriguez MD PH,Ur 6.5 Normal 5.0-9.0 [facility] Comment on above: Performed By: #### U MICAO, UAX #### [address] [place], [place] [address] Rn Hemodialysis Charge: Mohinder Rodriguez MD Protein Ql (U) Negative Normal NEG [facility] Comment on above: Performed By: #### U MICAO, UAX #### [address] [place], [place] [id number] Rn Hemodialysis Charge: Mohinder Rodriguez MD Spec. [place],Ur <1.005 Low 1.010-1.020 [facility] Comment on above: Performed By: #### U MICAO, UAX #### [facility] [address] [place] [address] Dr. [place], [place] 20[address]83 Rn Hemodialysis Charge: Mohinder Rodriguez MD Urobilinogen,Ur Normal Normal 0.0-1.0 [facility] Comment on above: Performed By: #### U MICAO, UAX #### [address] [place] [address] Rn Hemodialysis Charge: Mohinder Rodriguez MD Urinalysis,Microon 4 Bacteria 1+ Abnormal NONE [facility] Comment on above: Performed By: #### U MICAO, UAX #### [facility] [address] [place] [address] Dr. [place], [place] [id number] Rn Hemodialysis Charge: Mohinder Rodriguez MD Epithelial cells LM Ql (Urine sed) None Normal 0-5 [facility] Comment on above: Performed By: #### U MICAO, UAX #### [facility] [address] [place], [place] [phone] Rn Hemodialysis Charge: Mohinder Rodriguez MD Mucus Strands TRACE Abnormal NONE [facility] Comment on above: Performed By: #### U MICAO, UAX #### [facility] [address] [place], [place] [address] Rn Hemodialysis Charge: Mohinder Rodriguez MD Urine RBC's None Normal 0-2 [facility] Comment on above: Performed By: #### U MICAO, UAX #### [facility] [address] [place] [address] Rn Hemodialysis Charge: Mohinder Rodriguez MD Urine WBC's 0 TO 2 Normal 0-5 [facility] Comment on above: Performed By: #### U MICAO, UAX #### [facility] [address] [place] [address] Rn Hemodialysis Charge: Mohinder Rodriguez MD XR CHEST PORTABLEon 11-05-19 XR CHEST PORTABLE EXAMINATION: ONE XRAY VIEW OF THE CHEST 11/05/2023 3:58 pm COMPARISON: None. HISTORY: ORDERING SYSTEM PROVIDED HISTORY: hematemesis TECHNOLOGIST PROVIDED HISTORY: hematemesis FINDINGS: The heart, mediastinum and pulmonary vascularity are normal. Lungs are well-expanded and clear. No skeletal abnormalities are present in the chest. IMPRESSION: No significant findings in the chest. Interpreted by: Marc Paul IV, MD Signed by: Marc Paul IV, MD 11/05/23 Final result Normal [facility] Comp Metabolic Profon 2021 Albumin [Mass/Vol] 3.4 g/dL Low 3.5-5.2 [facility] Comment on above: Performed By: #### C K, CP #### [facility] [address] [facility] [place] [address] Rn Hemodialysis Charge: Maximino Monzon DO Alkaline Phos 40 U/L Normal 40-129 [facility] Comment on above: Performed By: #### Milagros Britt, CP #### [facility] [address] [place] [address] Rn Hemodialysis Charge: Maximino Monzon DO ALT [Catalytic activity/Vol] 354 U/L High 5-41 [facility] Comment on above: Performed By: #### Milagros Britt, CP #### [facility] [address] [place] [address] Rn Hemodialysis Charge: Maximino Monzon DO Anion gap [Moles/Vol] 7 mmol/L Low 9-17 [facility] Comment on above: Performed By: #### Milagros Britt, CP #### [facility] [address] [place] [address] Rn Hemodialysis Charge: Maximino Monzon DO AST [Catalytic activity/Vol] 154 U/L High <40 [facility] Comment on above: Performed By: #### Milagros Britt, CP #### [facility] [address] [place] [address] Rn Hemodialysis Charge: Maximino Monzon DO Bilirubin [Mass/Vol] 0.4 mg/dL Normal 0.3-1.2 [facility] Comment on above: Performed By: #### Milagros Britt, CP #### [facility] [address] [place] [address] Rn Hemodialysis Charge: Maximino Monzon DO Calcium [Mass/Vol] 8.7 mg/dL Normal 8.6-10.4 [facility] Comment on above: Performed By: #### Milagros Birtt, CP #### [facility] [address] [place] [address] Rn Hemodialysis Charge: Maximino Monzon DO Chloride [Moles/Vol] 105 mmol/L Normal 98-107 [facility] Comment on above: Performed By: #### Milagros Britt, CP #### [facility] [address] [facility] [place] [address] Rn Hemodialysis Charge: Maximino Monzon DO CO2 [Moles/Vol] 29 mmol/L Normal 20-31 [facility] Comment on above: Performed By: #### Milagros Britt, CP #### [facility] [address] [facility] [place] [address] Rn Hemodialysis Charge: Maximino Monzon DO Creatinine [Mass/Vol] 0.73 mg/dL Normal 0.70-1.20 [facility] Comment on above: Performed By: #### Milagros Britt, LEROY #### [facility] [address] [place] [address]. [place] [address] Rn Hemodialysis Charge: Maximino Monzon DO GFR/1.73 sq M.predicted among non-blacks MDRD (S/P/Bld) [Vol rate/Area] mL/min/{1.73_m2} Normal >60 [facility] Comment on above: Result Comment: Effective Jul 04, 2022 These results are not intended for use in patients <18 years of age. eGFR results are calculated without a race factor using the 2020 CKD-EPI equation. Careful clinical correlation is recommended, particularly when comparing to results calculated using previous equations. The CKD-EPI equation is less accurate in patients with extremes of muscle mass, extra-renal metabolism of creatine, excessive creatine ingestion, or following therapy that affects renal tubular secretion. Performed By: #### Milagros Britt, CP #### [facility] [address] [facility] [place] [address] Rn Hemodialysis Charge: Maximino Monzon DO Glucose [Mass/Vol] 74 mg/dL Normal 70-99 [facility] Comment on above: Performed By: #### Milagros Britt, CP #### [facility] [facility] [place] [address] Rn Hemodialysis Charge: Maximino Monzon DO Potassium [Moles/Vol] 4.7 mmol/L Normal 3.7-5.3 [facility] Comment on above: Performed By: #### Milagros Britt, CP #### [facility] [address] [place] [address] Rn Hemodialysis Charge: Maximino Monzon DO Protein [Mass/Vol] 5.8 g/dL Low 6.4-8.3 [facility] Comment on above: Performed By: #### Milagros Britt, CP #### [facility] [address] [place] [address] Rn Hemodialysis Charge: Maximino Monzon DO Sodium [Moles/Vol] 141 mmol/L Normal 135-144 [facility] Comment on above: Performed By: #### Milagros Britt, CP #### [facility] [address] [place] [address] Rn Hemodialysis Charge: Maximino Monzon DO Urea nitrogen [Mass/Vol] 9 mg/dL Normal 6-20 [facility] Comment on above: Performed By: #### Milagros Britt, CP #### [facility] [address] [facility] [place] [address] Rn Hemodialysis Charge: Maximino Monzon DO Creatine Kinaseon 09-02-2022 CK [Catalytic activity/Vol] 1398 U/L High 39-308 [facility] Comment on above: Performed By: #### Milagros Britt, CP #### [facility] [address] [place] [address] Rn Hemodialysis Charge: Maximino Monzon DO Cult, Bloodon 09-02-2022 Cult, Blood Specimen Description .BLOOD Special Requests R HNAD 13 ML Culture NO GROWTH 5 DAYS Report Status FINAL 09/02/2022 Normal [facility] Comment on above: Performed By: #### B CUL2 #### [employer] [address] [place] [address] Rn Hemodialysis Charge: Stephan Darby MD Cult,Bloodon 09-02-2022 Cult,Blood Specimen Description .BLOOD Special Requests L HAND 13 ML Culture NO GROWTH 5 DAYS Report Status FINAL 09/02/2022 Normal [facility] Comment on above: Performed By: #### U IBETH, UAX #### [facility] [address] [place] [address] Rn Hemodialysis Charge: Stephan Darby MD Basic Metab w/rfx MGon 08-31 Anion gap [Moles/Vol] 6 mmol/L Low 9-17 [facility] Comment on above: Performed By: #### U IBETH UAX #### [facility] [address] [place] [address] Rn Hemodialysis Charge: Stephan Darby MD Calcium [Mass/Vol] 8.1 mg/dL Low 8.6-10.4 [facility] Comment on above: Performed By: #### U IBETH UAX #### [facility] [address] [place] [address] Rn Hemodialysis Charge: Stephan Darby MD Chloride [Moles/Vol] 110 mmol/L High 98-107 [facility] Comment on above: Performed By: #### U IBETH, UAX #### [facility] [address] [place] [address] Rn Hemodialysis Charge: Stephan Darby MD CO2 [Moles/Vol] 23 mmol/L Normal 20-31 [facility] Comment on above: Performed By: #### U IBETH UAX #### [facility] [address] [place] [address] Rn Hemodialysis Charge: Stephan Darby MD Creatinine [Mass/Vol] 0.57 mg/dL Low 0.70-1.20 [facility] Comment on above: Performed By: #### U IBETH, UAX #### [employer] [address] [place] [address] Rn Hemodialysis Charge: Stephan Darby MD GFR/1.73 sq M.predicted among non-blacks MDRD (S/P/Bld) [Vol rate/Area] mL/min/{1.73_m2} Normal >60 [facility] Comment on above: Result Comment: Effective Jul 04, 2022 These results are not intended for use in patients <18 years of age. eGFR results are calculated without a race factor using the 2020 CKD-EPI equation. Careful clinical correlation is recommended, particularly when comparing to results calculated using previous equations. The CKD-EPI equation is less accurate in patients with extremes of muscle mass, extra-renal metabolism of creatine, excessive creatine ingestion, or following therapy that affects renal tubular secretion. Performed By: #### U IBETH UAX #### [facility] [address] [place] [address] Rn Hemodialysis Charge: Stephan Darby MD Glucose [Mass/Vol] 101 mg/dL High 70-99 [facility] Comment on above: Performed By: #### U IBETH UAX #### [facility] [address] [place] [address] Rn Hemodialysis Charge: Stephan Darby MD Potassium [Moles/Vol] 3.9 mmol/L Normal 3.7-5.3 [facility] Comment on above: Performed By: #### U IBETH UAX #### [facility] [address] [place] [address] Rn Hemodialysis Charge: Stephan Darby MD Sodium [Moles/Vol] 139 mmol/L Normal 135-144 [facility] Comment on above: Performed By: #### U NOHEMYO, UAX #### [facility] [address] [place] [address] Rn Hemodialysis Charge: Stephan Darby MD Urea nitrogen [Mass/Vol] 8 mg/dL Normal 6-20 [facility] Comment on above: Performed By: #### U MICAO, UAX #### [address] [address] Rn Hemodialysis Charge: Stephan Darby MD CBC with Diffon 08-31-2022 Abs. Basophil 0.04 k/uL Normal 0.00-0.20 [facility] Comment on above: Performed By: #### U IBETH, UAX #### [address] [address] Rn Hemodialysis Charge: Stephan Darby MD Abs.Imm.Granulocyt e <0.03 Normal 0.00-0.30 [facility] Comment on above: Performed By: #### U IBETH UAX #### [address] [address] Rn Hemodialysis Charge: Stephan Darby MD Abs.Neutrophil (Seg) 3.68 k/uL Normal 1.50-8.10 [facility] Comment on above: Performed By: #### U IBETH, UAX #### [address] [address] Rn Hemodialysis Charge: Stephan Darby MD Basophils/100 WBC (Bld) 1 % Normal 0-2 [facility] Comment on above: Performed By: #### U IBETH, UAX #### [address] [address] Rn Hemodialysis Charge: Stephan Darby MD Eosinophils (Bld) [#/Vol] 0.06 10*3/uL Normal 0.00-0.44 [facility] Comment on above: Performed By: #### U IBETH, UAX #### [address] [address] Rn Hemodialysis Charge: Stephan Darby MD Eosinophils/100 WBC (Bld) 1 % Normal 1-4 [facility] Comment on above: Performed By: #### U IBETH, UAX #### [facility] [address] [place] [address] Rn Hemodialysis Charge: Stephan Darby MD Erythrocyte distribution width (RBC) [Ratio] 12.8 % Normal 11.8-14.4 [facility] Comment on above: Performed By: #### U NOHEMYO, UAX #### [facility] [address] [place] [address] Rn Hemodialysis Charge: Stephan Darby MD Hematocrit (Bld) [Volume fraction] 38.7 % Low 40.7-50.3 [facility] Comment on above: Performed By: #### U IBETH, UAX #### [facility] [address] [place] [address] Rn Hemodialysis Charge: Stephan Darby MD Hemoglobin (Bld) [Mass/Vol] 12.7 g/dL Low 13.0-17.0 [facility] Comment on above: Performed By: #### U IBETH, UAX #### [facility] [address] [place] [address] Rn Hemodialysis Charge: Stephan Darby MD Immature granulocytes/100 WBC (Bld) 0 % Normal 0 [facility] Comment on above: Performed By: #### U IBETH, UAX #### [facility] [address] [place] [address] Rn Hemodialysis Charge: Stephan Darby MD Lymphocytes (Bld) [#/Vol] 1.08 10*3/uL Low 1.10-3.70 [facility] Comment on above: Performed By: #### U IBETH, UAX #### [facility] [address] [place] [address] Rn Hemodialysis Charge: Stephan Darby MD Lymphocytes/100 WBC (Bld) 20 % Low 24-43 [facility] Comment on above: Performed By: #### U IBETH, UAX #### [facility] [address] [place] [address] Rn Hemodialysis Charge: Stephan Darby MD MCH (RBC) [Entitic mass] 32.1 pg Normal 25.2-33.5 [facility] Comment on above: Performed By: #### U IBETH, UAX #### [address] [address] Rn Hemodialysis Charge: Stephan Darby MD MCHC (RBC) [Mass/Vol] 32.8 g/dL Normal 28.4-34.8 [facility] Comment on above: Performed By: #### U IBETH, UAX #### [address] [address] Rn Hemodialysis Charge: Stephan Darby MD MCV (RBC) [Entitic vol] 97.7 fL Normal 82.6-102.9 [facility] Comment on above: Performed By: #### U IBETH UAX #### [address] [address] Rn Hemodialysis Charge: Stephan Darby MD Monocytes (Bld) [#/Vol] 0.60 10*3/uL Normal 0.10-1.20 [facility] Comment on above: Performed By: #### U IBETH, UAX #### [address] [address] Rn Hemodialysis Charge: Stephan Darby MD Monocytes/100 WBC (Bld) 11 % Normal 3-12 [facility] Comment on above: Performed By: #### U IBETH, UAX #### [address] [address] Rn Hemodialysis Charge: Stephan Darby MD Neutrophil (Seg) 67 % High 36-[address] [facility] Comment on above: Performed By: #### U IBETH, UAX #### [address] [address] Rn Hemodialysis Charge: Stephan Darby MD NRBC Automated 0.0 per 100 WBC Normal 0.0 [facility] Comment on above: Performed By: #### U NOHEMYO, UAX #### [facility] [address] [place] [address] Rn Hemodialysis Charge: Stephan Darby MD Platelet mean volume (Bld) [Entitic vol] 11.1 fL Normal 8.1-13.5 [facility] Comment on above: Performed By: #### U NOHEMYO, UAX #### [facility] [address] [place] [address] Rn Hemodialysis Charge: Stephan Darby MD Platelets (Bld) [#/Vol] 164 10*3/uL Normal 138-453 [facility] Comment on above: Performed By: #### U IBETH, UAX #### [address] [address] Rn Hemodialysis Charge: Stephan Darby MD RBC (Bld) [#/Vol] 3.96 10*6/uL Low 4.21-5.77 [facility] Comment on above: Performed By: #### U IBETH, UAX #### [address] [address] Rn Hemodialysis Charge: Stephan Darby MD WBC (Bld) [#/Vol] 5.5 10*3/uL Normal 3.5-11.3 [facility] Comment on above: Performed By: #### U NOHEMYO, UAX #### [address] [address] Rn Hemodialysis Charge: Stephan Darby MD Creatine Kinaseon 08-31-2022 CK [Catalytic activity/Vol] 3882 U/L High 39-308 [facility] Comment on above: Performed By: #### C DP, LACTIC, BMPX, TAYLOR, CK #### [address] [address] Rn Hemodialysis Charge: Stephan Darby MD Myoglobinon 08-31-2022 Myoglobin [Mass/Vol] 64 ng/mL Normal 28-72 [facility] Comment on above: Performed By: #### C DP, LACTIC, BMPX, TAYLOR, CK #### [address] [address] Rn Hemodialysis Charge: Stephan Darby MD Basic Metab w/rfx MGon 08-30 Anion gap [Moles/Vol] 8 mmol/L Low 9-17 [facility] Comment on above: Performed By: #### C DP, LACTIC, BMPX, TAYLOR, CK #### [address] [address] Rn Hemodialysis Charge: Stephan Darby MD Calcium [Mass/Vol] 7.5 mg/dL Low 8.6-10.4 [facility] Comment on above: Performed By: #### C DP, LACTIC, BMPX, TAYLOR, CK #### [address] [address] Rn Hemodialysis Charge: Stehpan Darby MD Chloride [Moles/Vol] 110 mmol/L High 98-107 [facility] Comment on above: Performed By: #### C DP, LACTIC, BMPX, TAYLOR, CK #### [address] [address] Rn Hemodialysis Charge: Stephan Darby MD CO2 [Moles/Vol] 22 mmol/L Normal 20-31 [facility] Comment on above: Performed By: #### C DP, LACTIC, BMPX, TAYLOR, CK #### [address] [address] Rn Hemodialysis Charge: Stephan Darby MD Creatinine [Mass/Vol] 0.57 mg/dL Low 0.70-1.20 [facility] Comment on above: Performed By: #### C DP, LACTIC, BMPX, TAYLOR, CK #### [facility] [address] [place] [address] Rn Hemodialysis Charge: Stephan Darby MD GFR/1.73 sq M.predicted among non-blacks MDRD (S/P/Bld) [Vol rate/Area] mL/min/{1.73_m2} Normal >60 [facility] Comment on above: Result Comment: Effective Jul 04, 2022 These results are not intended for use in patients <18 years of age. eGFR results are calculated without a race factor using the 2020 CKD-EPI equation. Careful clinical correlation is recommended, particularly when comparing to results calculated using previous equations. The CKD-EPI equation is less accurate in patients with extremes of muscle mass, extra-renal metabolism of creatine, excessive creatine ingestion, or following therapy that affects renal tubular secretion. Performed By: #### C DP, LACTIC, BMPX, TAYLOR, CK #### [address] [address] Rn Hemodialysis Charge: Stephan Darby MD Glucose [Mass/Vol] 75 mg/dL Normal 70-99 [facility] Comment on above: Performed By: #### C DP, LACTIC, BMPX, TAYLOR, CK #### [address] [address] Rn Hemodialysis Charge: Stephan Darby MD Potassium [Moles/Vol] 4.0 mmol/L Normal 3.7-5.3 [facility] Comment on above: Performed By: #### C DP, LACTIC, BMPX, TAYLOR, CK #### [facility] [address] [place] [address] Rn Hemodialysis Charge: Stephan Darby MD Sodium [Moles/Vol] 140 mmol/L Normal 135-144 [facility] Comment on above: Performed By: #### C DP, LACTIC, BMPX, TAYLOR, CK #### [facility] [address] [place] [address] Rn Hemodialysis Charge: Stephan Darby MD Urea nitrogen [Mass/Vol] 13 mg/dL Normal 6-20 [facility] Comment on above: Performed By: #### C DP, LACTIC, BMPX, TAYLOR, CK #### [address] [address] Rn Hemodialysis Charge: Stephan Darby MD CBC with Diffon 08-30-2022 Abs. Basophil 0.05 k/uL Normal 0.00-0.20 [facility] Comment on above: Performed By: #### C DP, LACTIC, BMPX, TAYLOR, CK #### [place] [address] Rn Hemodialysis Charge: Stephan Darby MD Abs.Imm.Granulocyt e <0.03 Normal 0.00-0.30 [facility] Comment on above: Performed By: #### C DP, LACTIC, BMPX, TAYLOR, CK #### [place] [address] Rn Hemodialysis Charge: Stephan Darby MD Abs.Neutrophil (Seg) 3.71 k/uL Normal 1.50-8.10 [facility] Comment on above: Performed By: #### C DP, LACTIC, BMPX, TAYLOR, CK #### [place] [address] Rn Hemodialysis Charge: Stephan Darby MD Basophils/100 WBC (Bld) 1 % Normal 0-2 [facility] Comment on above: Performed By: #### C DP, LACTIC, BMPX, TAYLOR, CK #### [place] [address] Rn Hemodialysis Charge: Stephan Darby MD Eosinophils (Bld) [#/Vol] 0.04 10*3/uL Normal 0.00-0.44 [facility] Comment on above: Performed By: #### C DP, LACTIC, BMPX, TAYLOR, CK #### [address] [address] Rn Hemodialysis Charge: Stephan Darby MD Eosinophils/100 WBC (Bld) 1 % Normal 1-4 [facility] Comment on above: Performed By: #### C DP, LACTIC, BMPX, TAYLOR, CK #### [address] [address] Rn Hemodialysis Charge: Stephan Darby MD Erythrocyte distribution width (RBC) [Ratio] 13.1 % Normal 11.8-14.4 [facility] Comment on above: Performed By: #### C DP, LACTIC, BMPX, TAYLOR, CK #### [place] [address] Rn Hemodialysis Charge: Stephan Darby MD Hematocrit (Bld) [Volume fraction] 36.9 % Low 40.7-50.3 [facility] Comment on above: Performed By: #### C DP, LACTIC, BMPX, TAYLOR, CK #### [place] [address] Rn Hemodialysis Charge: Stephan Darby MD Hemoglobin (Bld) [Mass/Vol] 11.9 g/dL Low 13.0-17.0 [facility] Comment on above: Performed By: #### C DP, LACTIC, BMPX, TAYLOR, CK #### [address] [address] Rn Hemodialysis Charge: Stephan Darby MD Immature granulocytes/100 WBC (Bld) 0 % Normal 0 [facility] Comment on above: Performed By: #### C DP, LACTIC, BMPX, TAYLOR, CK #### [place] [address] Rn Hemodialysis Charge: Stephan Darby MD Lymphocytes (Bld) [#/Vol] 1.76 10*3/uL Normal 1.10-3.70 [facility] Comment on above: Performed By: #### C DP, LACTIC, BMPX, TAYLOR, CK #### [place] [address] Rn Hemodialysis Charge: Stephan Darby MD Lymphocytes/100 WBC (Bld) 28 % Normal 24-43 [facility] Comment on above: Performed By: #### C DP, LACTIC, BMPX, TAYLOR, CK #### [address] [address] Rn Hemodialysis Charge: Stephan Darby MD MCH (RBC) [Entitic mass] 32.4 pg Normal 25.2-33.5 [facility] Comment on above: Performed By: #### C DP, LACTIC, BMPX, TAYLOR, CK #### [address] [address] Rn Hemodialysis Charge: Stephan Darby MD MCHC (RBC) [Mass/Vol] 32.2 g/dL Normal 28.4-34.8 [facility] Comment on above: Performed By: #### C DP, LACTIC, BMPX, TAYLOR, CK #### [place] [address] Rn Hemodialysis Charge: Stephan Darby MD MCV (RBC) [Entitic vol] 100.5 fL Normal 82.6-102.9 [facility] Comment on above: Performed By: #### C DP, LACTIC, BMPX, TAYLOR, CK #### [address] [address] Rn Hemodialysis Charge: Stephan Darby MD Monocytes (Bld) [#/Vol] 0.62 10*3/uL Normal 0.10-1.20 [facility] Comment on above: Performed By: #### C DP, LACTIC, BMPX, TAYLOR, CK #### [address] [address] Rn Hemodialysis Charge: Stephan Darby MD Monocytes/100 WBC (Bld) 10 % Normal 3-12 [facility] Comment on above: Performed By: #### C DP, LACTIC, BMPX, TAYLOR, CK #### [place] [address] Rn Hemodialysis Charge: Stephan Darby MD Neutrophil (Seg) 60 % Normal 36-[address] [facility] Comment on above: Performed By: #### C DP, LACTIC, BMPX, TAYLOR, CK #### [address] [address] Rn Hemodialysis Charge: Stephan Darby MD NRBC Automated 0.0 per 100 WBC Normal 0.0 [facility] Comment on above: Performed By: #### C DP, LACTIC, BMPX, TAYLOR, CK #### [address] [address] Rn Hemodialysis Charge: Stephan Darby MD Platelet mean volume (Bld) [Entitic vol] 11.0 fL Normal 8.1-13.5 [facility] Comment on above: Performed By: #### C DP, LACTIC, BMPX, TAYLOR, CK #### [address] [address] Rn Hemodialysis Charge: Stephan Darby MD Platelets (Bld) [#/Vol] 151 10*3/uL Normal 138-453 [facility] Comment on above: Performed By: #### C DP, LACTIC, BMPX, TAYLOR, CK #### [address] [address] Rn Hemodialysis Charge: Stephan Darby MD RBC (Bld) [#/Vol] 3.67 10*6/uL Low 4.21-5.77 [facility] Comment on above: Performed By: #### C DP, LACTIC, BMPX, TAYLOR, CK #### [address] [address] Rn Hemodialysis Charge: Stephan Darby MD WBC (Bld) [#/Vol] 6.2 10*3/uL Normal 3.5-11.3 [facility] Comment on above: Performed By: #### C DP, LACTIC, BMPX, TAYLOR, CK #### [facility] [address] [place] [address] Rn Hemodialysis Charge: Stephan Darby MD Creatine Kinaseon 08-30-2022 CK [Catalytic activity/Vol] 4798 U/L High 39-308 [facility] Comment on above: Performed By: #### C DP, LACTIC, BMPX, TAYLOR, CK #### [address] [address] Rn Hemodialysis Charge: Stephan Darby MD CK [Catalytic activity/Vol] 5326 U/L High 39-308 [facility] Comment on above: Performed By: #### C DP, LACTIC, BMPX, TAYLOR, CK #### [address] [address] Rn Hemodialysis Charge: Stephan Darby MD Myoglobinon 08-30-2022 Myoglobin [Mass/Vol] 211 ng/mL High 28-72 [facility] Comment on above: Performed By: #### C DP, LACTIC, BMPX, TAYLOR, CK #### [address] [address] Rn Hemodialysis Charge: Stephan Darby MD Basic Metab w/rfx MGon 08-29 Anion gap [Moles/Vol] 11 mmol/L Normal 9-17 [facility] Comment on above: Performed By: #### C DP, LACTIC, BMPX, TAYLOR, CK #### [address] [address] Rn Hemodialysis Charge: Stephan Darby MD Calcium [Mass/Vol] 7.7 mg/dL Low 8.6-10.4 [facility] Comment on above: Performed By: #### C DP, LACTIC, BMPX, TAYLOR, CK #### [facility] [address] [place] [address] Rn Hemodialysis Charge: Stephan Darby MD Chloride [Moles/Vol] 109 mmol/L High 98-107 [facility] Comment on above: Performed By: #### C DP, LACTIC, BMPX, TAYLOR, CK #### [address] [address] Rn Hemodialysis Charge: Stephan Darby MD CO2 [Moles/Vol] 21 mmol/L Normal 20-31 [facility] Comment on above: Performed By: #### C DP, LACTIC, BMPX, TAYLOR, CK #### [address] [address] Rn Hemodialysis Charge: Stephan Darby MD Creatinine [Mass/Vol] 0.80 mg/dL Normal 0.70-1.20 [facility] Comment on above: Performed By: #### C DP, LACTIC, BMPX, TAYLOR, CK #### [address] [address] Rn Hemodialysis Charge: Stephan Darby MD GFR/1.73 sq M.predicted among non-blacks MDRD (S/P/Bld) [Vol rate/Area] mL/min/{1.73_m2} Normal >60 [facility] Comment on above: Result Comment: Effective Jul 04, 2022 These results are not intended for use in patients <18 years of age. eGFR results are calculated without a race factor using the 2020 CKD-EPI equation. Careful clinical correlation is recommended, particularly when comparing to results calculated using previous equations. The CKD-EPI equation is less accurate in patients with extremes of muscle mass, extra-renal metabolism of creatine, excessive creatine ingestion, or following therapy that affects renal tubular secretion. Performed By: #### C DP, LACTIC, BMPX, TAYLOR, CK #### [address] [address] Rn Hemodialysis Charge: Stephan Darby MD Glucose [Mass/Vol] 73 mg/dL Normal 70-99 [facility] Comment on above: Performed By: #### C DP, LACTIC, BMPX, TAYLOR, CK #### [address] [address] Rn Hemodialysis Charge: Stephan Darby MD Potassium [Moles/Vol] 3.7 mmol/L Normal 3.7-5.3 [facility] Comment on above: Performed By: #### C DP, LACTIC, BMPX, TAYLOR, CK #### [address] [id number] Rn Hemodialysis Charge: Stephan Darby MD Sodium [Moles/Vol] 141 mmol/L Normal 135-144 [facility] Comment on above: Performed By: #### C DP, LACTIC, BMPX, TAYLOR, CK #### [place] [address] Rn Hemodialysis Charge: Stephan Darby MD Urea nitrogen [Mass/Vol] 21 mg/dL High 6-20 [facility] Comment on above: Performed By: #### C DP, LACTIC, BMPX, TAYLOR, CK #### [place] [address] Rn Hemodialysis Charge: Stephan Darby MD CBC with Diffon 08-29-2022 Abs. Basophil 0.04 k/uL Normal 0.00-0.20 [facility] Comment on above: Performed By: #### C DP, LACTIC, BMPX, TAYLOR, CK #### [place] [address] Rn Hemodialysis Charge: Stephan Darby MD Abs.Imm.Granulocyt e <0.03 Normal 0.00-0.30 [facility] Comment on above: Performed By: #### C DP, LACTIC, BMPX, TAYLOR, CK #### [place] [address] Rn Hemodialysis Charge: Stephan Darby MD Abs.Neutrophil (Seg) 4.89 k/uL Normal 1.50-8.10 [facility] Comment on above: Performed By: #### C DP, LACTIC, BMPX, TAYLOR, CK #### [address] [place] [address] Rn Hemodialysis Charge: Stephan Darby MD Basophils/100 WBC (Bld) 1 % Normal 0-2 [facility] Comment on above: Performed By: #### C DP, LACTIC, BMPX, TAYLOR, CK #### [address] [address] Rn Hemodialysis Charge: Stephan Darby MD Eosinophils (Bld) [#/Vol] 0.07 10*3/uL Normal 0.00-0.44 [facility] Comment on above: Performed By: #### C DP, LACTIC, BMPX, TAYLOR, CK #### [place] [address] Rn Hemodialysis Charge: Stephan aDrby MD Eosinophils/100 WBC (Bld) 1 % Normal 1-4 [facility] Comment on above: Performed By: #### C DP, LACTIC, BMPX, TAYLOR, CK #### [place] [address] Rn Hemodialysis Charge: Stephan Darby MD Erythrocyte distribution width (RBC) [Ratio] 13.2 % Normal 11.8-14.4 [facility] Comment on above: Performed By: #### C DP, LACTIC, BMPX, TAYLOR, CK #### [place] [address] Rn Hemodialysis Charge: Stephan Darby MD Hematocrit (Bld) [Volume fraction] 40.4 % Low 40.7-50.3 [facility] Comment on above: Performed By: #### C DP, LACTIC, BMPX, TAYLOR, CK #### [place] [address] Rn Hemodialysis Charge: Stephan Darby MD Hemoglobin (Bld) [Mass/Vol] 12.7 g/dL Low 13.0-17.0 [facility] Comment on above: Performed By: #### C DP, LACTIC, BMPX, TAYLOR, CK #### [address] [address] Rn Hemodialysis Charge: Stephan Darby MD Immature granulocytes/100 WBC (Bld) 0 % Normal 0 [facility] Comment on above: Performed By: #### C DP, LACTIC, BMPX, TAYLOR, CK #### [address] [address] Rn Hemodialysis Charge: Stephan Darby MD Lymphocytes (Bld) [#/Vol] 2.36 10*3/uL Normal 1.10-3.70 [facility] Comment on above: Performed By: #### C DP, LACTIC, BMPX, TAYLOR, CK #### [address] [address] Rn Hemodialysis Charge: Stephan Darby MD Lymphocytes/100 WBC (Bld) 29 % Normal 24-43 [facility] Comment on above: Performed By: #### C DP, LACTIC, BMPX, TAYLOR, CK #### [address] [address] Rn Hemodialysis Charge: Stephan Darby MD MCH (RBC) [Entitic mass] 32.3 pg Normal 25.2-33.5 [facility] Comment on above: Performed By: #### C DP, LACTIC, BMPX, TAYLOR, CK #### [address] [address] Rn Hemodialysis Charge: Stephan Darby MD MCHC (RBC) [Mass/Vol] 31.4 g/dL Normal 28.4-34.8 [facility] Comment on above: Performed By: #### C DP, LACTIC, BMPX, TAYLOR, CK #### [address] [address] Rn Hemodialysis Charge: Stephan Darby MD MCV (RBC) [Entitic vol] 102.8 fL Normal 82.6-102.9 [facility] Comment on above: Performed By: #### C DP, LACTIC, BMPX, TAYLOR, CK #### [address] [address] Rn Hemodialysis Charge: Stephan Darby MD Monocytes (Bld) [#/Vol] 0.72 10*3/uL Normal 0.10-1.20 [facility] Comment on above: Performed By: #### C DP, LACTIC, BMPX, TAYLOR, CK #### [address] [address] Rn Hemodialysis Charge: Stephan Darby MD Monocytes/100 WBC (Bld) 9 % Normal 3-12 [facility] Comment on above: Performed By: #### C DP, LACTIC, BMPX, TAYLOR, CK #### [address] [address] Rn Hemodialysis Charge: Stephan Darby MD Neutrophil (Seg) 60 % Normal 36-[address] [facility] Comment on above: Performed By: #### C DP, LACTIC, BMPX, TAYLOR, CK #### [address] [address] Rn Hemodialysis Charge: Stephan Darby MD NRBC Automated 0.0 per 100 WBC Normal 0.0 [facility] Comment on above: Performed By: #### C DP, LACTIC, BMPX, TAYLOR, CK #### [address] [address] Rn Hemodialysis Charge: Stephan Darby MD Platelet mean volume (Bld) [Entitic vol] 10.4 fL Normal 8.1-13.5 [facility] Comment on above: Performed By: #### C DP, LACTIC, BMPX, TAYLOR, CK #### [address] [address] Rn Hemodialysis Charge: Stephan Darby MD Platelets (Bld) [#/Vol] 162 10*3/uL Normal 138-453 [facility] Comment on above: Performed By: #### C DP, LACTIC, BMPX, TAYLOR, CK #### [address] [address] Rn Hemodialysis Charge: Stephan Darby MD RBC (Bld) [#/Vol] 3.93 10*6/uL Low 4.21-5.77 [facility] Comment on above: Performed By: #### C DP, LACTIC, BMPX, TAYLOR, CK #### [address] [address] Rn Hemodialysis Charge: Stephan Darby MD WBC (Bld) [#/Vol] 8.1 10*3/uL Normal 3.5-11.3 [facility] Comment on above: Performed By: #### C DP, LACTIC, BMPX, TAYLOR, CK #### [address] [address] Rn Hemodialysis Charge: Stephan Darby MD Creatine Kinaseon 08-29-2022 CK [Catalytic activity/Vol] 7753 U/L High 39-308 [facility] Comment on above: Performed By: #### C DP, LACTIC, BMPX, TAYLOR, CK #### [address] [address] Rn Hemodialysis Charge: Stephan Darby MD Lactic Acidon 08-29-2022 Lactic Acid,Whole Bl 1.6 mmol/L Normal 0.7-2.1 [facility] Comment on above: Performed By: #### C DP, LACTIC, BMPX, TAYLOR, CK #### [address] [address] Rn Hemodialysis Charge: Stephan Darby MD MRSA, DNA, Nasalon MRSA, DNA, Nasal Negative Normal NEG [facility] Comment on above: Result Comment: NEGA TIVE: MRSA DNA not detected by nucleic acid amplification. Results should be used as an adjunct to nosocomial control efforts to identify patients needing enhanced precautions. The test is not intended to identify patients with staphylococcal infections. Results should not be used to guide or monitor treatment for MRSA infections. Performed By: #### C DP, LACTIC, BMPX, TAYLOR, CK #### [facility] [address] [place] [address] Rn Hemodialysis Charge: Stephan Darby MD Myoglobinon 08-29-2022 Myoglobin [Mass/Vol] 1004 ng/mL High 28-72 [facility] Comment on above: Performed By: #### C DP, LACTIC, BMPX, TAYLOR, CK #### [facility] [address] [place] [address] Rn Hemodialysis Charge: Stephan Darby MD Troponinon 08-29-2022 Troponin, High Sens 96 ng/L Critically high 0-22 [facility] Comment on above: Result Comment: High Sensitivity Troponin values cannot be compared with other Troponin methodologies. Patients with high levels of Biotin oral intake (i.e >5mg/day) may have falsely decreased Troponin levels. Samples collected within 8 hours of biotin intake may require additional information for diagnosis. Previous Alert Value Reported Performed By: #### T ROPI #### [address] [address] Rn Hemodialysis Charge: Stephan Darby MD Vancomycin Troughon 08-29-20 Vancomycin Trough 12.5 ug/mL Normal 10.0-20.0 [facility] [place] Comment on above: Result Comment: High er trough serum vancomycin concentrations of 15-20 ug/mL are recommended for complicated infections such as bacteremia, endocarditis, osteomyelitis, meningitis, and hospital acquired pneumonia. Performed By: #### V NCT #### [address] [address] Rn Hemodialysis Charge: Stephan Darby MD Ammoniaon 08-28-2022 Ammonia (P) [Moles/Vol] 41 umol/L Normal 16-60 [facility] Comment on above: Performed By: #### U MICAO, UAX #### [facility] [address] [place] [address] Rn Hemodialysis Charge: Stephan Darby MD CBC with Diffon 08-28-2022 Abs. Basophil <0.03 Normal 0.00-0.20 [facility] Comment on above: Performed By: #### U IBETH, UAX #### [address] [address] Rn Hemodialysis Charge: Stephan Darby MD Abs. Eosinophil <0.03 Normal 0.00-0.44 [facility] Comment on above: Performed By: #### U IBETH UAX #### [address] [address] Rn Hemodialysis Charge: Stephan Darby MD Abs.Imm.Granulocyt e 0.06 k/uL Normal 0.00-0.30 [facility] Comment on above: Performed By: #### Larisa CRISTINA UAX #### [address] [address] Rn Hemodialysis Charge: Stephan Darby MD Abs.Neutrophil (Seg) 12.56 k/uL High 1.50-8.10 [facility] Comment on above: Performed By: #### U IBETH UAX #### [address] [address] Rn Hemodialysis Charge: Stephan Darby MD Basophils/100 WBC (Bld) 0 % Normal 0-2 [facility] Comment on above: Performed By: #### U IBETH, UAX #### [facility] [address] [place] [address] Rn Hemodialysis Charge: Stephan Darby MD Eosinophils/100 WBC (Bld) 0 % Low 1-4 [facility] Comment on above: Performed By: #### U IBETH, UAX #### [facility] [address] [place] [address] Rn Hemodialysis Charge: Stephan Darby MD Erythrocyte distribution width (RBC) [Ratio] 13.2 % Normal 11.8-14.4 [facility] Comment on above: Performed By: #### U IBETH UAX #### [facility] [address] [place] [address] Rn Hemodialysis Charge: Stephan Darby MD Hematocrit (Bld) [Volume fraction] 40.5 % Low 40.7-50.3 [facility] Comment on above: Performed By: #### U IBETH, UAX #### [facility] [address] [place] [address] Rn Hemodialysis Charge: Stephan Darby MD Hemoglobin (Bld) [Mass/Vol] 13.2 g/dL Normal 13.0-17.0 [facility] Comment on above: Performed By: #### U IBETH, UAX #### [address] [address] Rn Hemodialysis Charge: Stephan Darby MD Immature granulocytes/100 WBC (Bld) 0 % Normal 0 [facility] Comment on above: Performed By: #### U IBETH UAX #### [address] [address] Rn Hemodialysis Charge: Stephan Darby MD Lymphocytes (Bld) [#/Vol] 1.42 10*3/uL Normal 1.10-3.70 [facility] Comment on above: Performed By: #### U IBETH UAX #### [address] [address] Rn Hemodialysis Charge: Stephan Darby MD Lymphocytes/100 WBC (Bld) 10 % Low 24-43 [facility] Comment on above: Performed By: #### U IBETH UAX #### [facility] [address] [place] [address] Rn Hemodialysis Charge: Stephan Darby MD MCH (RBC) [Entitic mass] 32.3 pg Normal 25.2-33.5 [facility] Comment on above: Performed By: #### U IBETH, UAX #### [facility] [address] [place] [address] Rn Hemodialysis Charge: Stephan Darby MD MCHC (RBC) [Mass/Vol] 32.6 g/dL Normal 28.4-34.8 [facility] Comment on above: Performed By: #### U IBETH, UAX #### [facility] [address] [place] [address] Rn Hemodialysis Charge: Stephan Darby MD MCV (RBC) [Entitic vol] 99.0 fL Normal 82.6-102.9 [facility] Comment on above: Performed By: #### U IBETH, UAX #### [address] [address] Rn Hemodialysis Charge: Stephan Darby MD Monocytes (Bld) [#/Vol] 0.89 10*3/uL Normal 0.10-1.20 [facility] Comment on above: Performed By: #### U IBETH UAX #### [address] [address] Rn Hemodialysis Charge: Stephan Darby MD Monocytes/100 WBC (Bld) 6 % Normal 3-12 [facility] Comment on above: Performed By: #### U IBETH, UAX #### [facility] [address] [place] [address] Rn Hemodialysis Charge: Stephan Darby MD Neutrophil (Seg) 84 % High 36-[address] [facility] Comment on above: Performed By: #### U IBETH, UAX #### [facility] [address] [place] [address] Rn Hemodialysis Charge: Stephan Darby MD NRBC Automated 0.0 per 100 WBC Normal 0.0 [facility] Comment on above: Performed By: #### U IBETH, UAX #### [address] [address] Rn Hemodialysis Charge: Stephan Darby MD Platelet mean volume (Bld) [Entitic vol] 9.9 fL Normal 8.1-13.5 [facility] Comment on above: Performed By: #### U MICAKrys, UAX #### [address] [address] Rn Hemodialysis Charge: Stephan Darby MD Platelets (Bld) [#/Vol] 184 10*3/uL Normal 138-453 [facility] Comment on above: Performed By: #### U IBETH, UAX #### [address] [address] Rn Hemodialysis Charge: Stephan Darby MD RBC (Bld) [#/Vol] 4.09 10*6/uL Low 4.21-5.77 [facility] Comment on above: Performed By: #### U IBETH, UAX #### [address] [address] Rn Hemodialysis Charge: Stephan Darby MD WBC (Bld) [#/Vol] 15.0 10*3/uL High 3.5-11.3 [facility] Comment on above: Performed By: #### U IBETH, UAX #### [address] [address] Rn Hemodialysis Charge: Stephan Darby MD Comp Metabolic Pr/rfx MGon 1 10-28-2021 Albumin [Mass/Vol] 3.2 g/dL Low 3.5-5.2 [facility] Comment on above: Performed By: #### C DP, LACTIC, BMPX, TAYLOR, CK #### [address] [address] Rn Hemodialysis Charge: Stephan Darby MD Albumin/Glob Ratio 1.8 Normal 1.0-2.5 [facility] Comment on above: Performed By: #### C DP, LACTIC, BMPX, TAYLOR, CK #### [address] [address] Rn Hemodialysis Charge: Stephan Darby MD Alkaline Phos 46 U/L Normal 40-129 [facility] Comment on above: Performed By: #### C DP, LACTIC, BMPX, TAYLOR, CK #### [address] [address] Rn Hemodialysis Charge: Stephan Darby MD ALT [Catalytic activity/Vol] 396 U/L High 5-41 [facility] Comment on above: Performed By: #### C DP, LACTIC, BMPX, TAYLOR, CK #### [address] [address] Rn Hemodialysis Charge: Stephan Darby MD Anion gap [Moles/Vol] 9 mmol/L Normal 9-17 [facility] Comment on above: Performed By: #### C DP, LACTIC, BMPX, TAYLOR, CK #### [address] [address] Rn Hemodialysis Charge: Stephan Darby MD AST [Catalytic activity/Vol] 456 U/L High <40 [facility] Comment on above: Performed By: #### C DP, LACTIC, BMPX, TAYLOR, CK #### [address] [address] Rn Hemodialysis Charge: Stephan Darby MD Bilirubin [Mass/Vol] 0.2 mg/dL Low 0.3-1.2 [facility] Comment on above: Performed By: #### C DP, LACTIC, BMPX, TAYLOR, CK #### [address] [address] Rn Hemodialysis Charge: Stephan Darby MD Calcium [Mass/Vol] 7.6 mg/dL Low 8.6-10.4 [facility] Comment on above: Performed By: #### C DP, LACTIC, BMPX, TAYLOR, CK #### [facility] [address] [place] [address] Rn Hemodialysis Charge: Stephan Darby MD Chloride [Moles/Vol] 106 mmol/L Normal 98-107 [facility] Comment on above: Performed By: #### C DP, LACTIC, BMPX, TAYLOR, CK #### [facility] [address] [place] [address] Rn Hemodialysis Charge: Stephan Darby MD CO2 [Moles/Vol] 22 mmol/L Normal 20-31 [facility] Comment on above: Performed By: #### C DP, LACTIC, BMPX, TAYLOR, CK #### [address] [address] Rn Hemodialysis Charge: Stephan Darby MD Creatinine [Mass/Vol] 1.20 mg/dL Normal 0.70-1.20 [facility] Comment on above: Performed By: #### C DP, LACTIC, BMPX, TAYLOR, CK #### [facility] [address] [place] [address] Rn Hemodialysis Charge: Stephan Darby MD GFR/1.73 sq M.predicted among non-blacks MDRD (S/P/Bld) [Vol rate/Area] mL/min/{1.73_m2} Normal >60 [facility] Comment on above: Result Comment: Effective Jul 04, 2022 These results are not intended for use in patients <18 years of age. eGFR results are calculated without a race factor using the 2020 CKD-EPI equation. Careful clinical correlation is recommended, particularly when comparing to results calculated using previous equations. The CKD-EPI equation is less accurate in patients with extremes of muscle mass, extra-renal metabolism of creatine, excessive creatine ingestion, or following therapy that affects renal tubular secretion. Performed By: #### C DP, LACTIC, BMPX, TAYLOR, CK #### [facility] [address] [place] [address] Rn Hemodialysis Charge: Stephan Darby MD Glucose [Mass/Vol] 146 mg/dL High 70-99 [facility] Comment on above: Performed By: #### C DP, LACTIC, BMPX, TAYLOR, CK #### [facility] [address] [place] [address] Rn Hemodialysis Charge: Stephan Darby MD Potassium [Moles/Vol] 4.4 mmol/L Normal 3.7-5.3 [facility] Comment on above: Performed By: #### C DP, LACTIC, BMPX, TAYLOR, CK #### [facility] [address] [place] [address] Rn Hemodialysis Charge: Stephan Darby MD Protein [Mass/Vol] 5.0 g/dL Low 6.4-8.3 [facility] Comment on above: Performed By: #### C DP, LACTIC, BMPX, TAYLOR, CK #### [facility] [address] [place] [address] Rn Hemodialysis Charge: Stephan Darby MD Sodium [Moles/Vol] 137 mmol/L Normal 135-144 [facility] Comment on above: Performed By: #### C DP, LACTIC, BMPX, TAYLOR, CK #### [facility] [address] [place] [address] Rn Hemodialysis Charge: Stephan Darby MD Urea nitrogen [Mass/Vol] 31 mg/dL High 6-20 [facility] Comment on above: Performed By: #### C DP, LACTIC, BMPX, TAYLOR, CK #### [facility] [address] [place] [address] Rn Hemodialysis Charge: Stephan Darby MD Lactic Acidon 08-28-2022 Lactic Acid,Whole Bl 1.0 mmol/L Normal 0.7-2.1 [facility] Comment on above: Performed By: #### U MICAO, UAX #### [facility] [address] [place] [address] Rn Hemodialysis Charge: Stephan Darby MD Lipaseon 08-28-2022 Lipase [Catalytic activity/Vol] 36 U/L Normal 13-60 [facility] Comment on above: Performed By: #### Larisa CRISTINA UAX #### [facility] [place] [address] Rn Hemodialysis Charge: Stephan Darby MD MRSA, DNA, Nasalon Specimen Description .NASAL SWAB Normal [facility] Comment on above: Performed By: #### C DP, LACTIC, BMPX, TAYLOR, CK #### [facility] [place] [address] Rn Hemodialysis Charge: Stephan Darby MD Phosphorus, Inorg.on 022 Phosphorus, Inorg. 3.7 mg/dL Normal 2.5-4.5 [facility] Comment on above: Performed By: #### Larisa CRISTINA UAX #### [facility] [address] [place] [address] Rn Hemodialysis Charge: Stephan Darby MD Thyroid Stim. Horm.on 2021 Thyroid Stim. Horm. 0.30 uIU/mL Normal 0.30-5.00 [facility] Comment on above: Performed By: #### Larisa CRISTINA UAX #### [facility] [address] [place] [address] Rn Hemodialysis Charge: Stehpan Darby MD Troponinon 08-28-2022 Troponin, High Sens 78 ng/L Critically high 0-22 [facility] Comment on above: Result Comment: High Sensitivity Troponin values cannot be compared with other Troponin methodologies. Patients with high levels of Biotin oral intake (i.e >5mg/day) may have falsely decreased Troponin levels. Samples collected within 8 hours of biotin intake may require additional information for diagnosis. Performed By: #### C DP, LACTIC, BMPX, TAYLOR, CK #### [facility] [address] [place] [address] Rn Hemodialysis Charge: Stephan Darby MD UA w/Reflex Cultureon 2021 Bilirubin, SemiQt,Ur Negative Normal NEG [facility] Comment on above: Performed By: #### U MICAO, UAX #### [facility] [address] [place] [address] Rn Hemodialysis Charge: Stephan Darby MD Blood, Urine LARGE Abnormal NEG [facility] Comment on above: Performed By: #### U MICAO, UAX #### [facility] [address] [place] [address] Rn Hemodialysis Charge: Stephan Darby MD Clarity (U) Clear Normal CLEAR [facility] Comment on above: Performed By: #### U MICAO, UAX #### [facility] [address] [place] [address] Rn Hemodialysis Charge: Stephan Darby MD Color (U) Yellow Normal YEL [facility] Comment on above: Performed By: #### U MICAO, UAX #### [facility] [address] [place] [address] Rn Hemodialysis Charge: Stephan Darby MD Glucose Ql (U) Negative Normal NEG [facility] Comment on above: Performed By: #### U MICAO, UAX #### [facility] [address] [place] [address] Rn Hemodialysis Charge: Stephan Darby MD Ketones Ql (U) Negative Normal NEG [facility] Comment on above: Performed By: #### U MICAO, UAX #### [facility] [address] [place] [address] Rn Hemodialysis Charge: Stephan Darby MD Leukocyte esterase Test strip Ql (U) MODERATE Abnormal NEG [facility] Comment on above: Performed By: #### U MICAO, UAX #### [facility] [address] [place] [address] Rn Hemodialysis Charge: Stephan Darby MD Nitrite,Ur Negative Normal NEG [facility] Comment on above: Performed By: #### U MICAO, UAX #### [address] [address] Rn Hemodialysis Charge: Stephan Darby MD PH,Ur 5.0 Normal 5.0-8.0 [facility] Comment on above: Performed By: #### U MICAO, UAX #### [address] [address] Rn Hemodialysis Charge: Stephan Darby MD Protein Ql (U) Negative Normal NEG [facility] Comment on above: Performed By: #### U MICAO, UAX #### [address] [address] Rn Hemodialysis Charge: Stephan Darby MD Spec. [place],Ur 1.021 Normal 1.005-1.030 [facility] Comment on above: Performed By: #### U MICAO, UAX #### [address] [address] Rn Hemodialysis Charge: Stephan Darby MD Urobilinogen,Ur Normal Normal NORM [facility] Comment on above: Performed By: #### U MICAO, UAX #### [address] [address] Rn Hemodialysis Charge: Stephan Darby MD Urinalysis,Microon 2 Casts 5 TO 10 HYALINE Normal 0-8 [facility] Comment on above: Result Comment: Refe rence range defined for non-centrifuged specimen. Performed By: #### U MICAO, UAX #### [address] [address] Rn Hemodialysis Charge: Stephan Darby MD Urine RBC's 0 TO 2 Normal 0-4 [facility] Comment on above: Result Comment: Refe rence range defined for non-centrifuged specimen. Performed By: #### U MICAO, UAX #### [facility] [address] [place] [address] Rn Hemodialysis Charge: Stepahn Darby MD Urine WBC's 2 TO 5 Normal 0-5 [facility] Comment on above: Performed By: #### U MICAO, UAX #### [facility] [address] [place] [address] Rn Hemodialysis Charge: Stephan Darby MD Vitamin B12on 08-28-2022 Cobalamin (Vitamin B12) [Mass/Vol] 1014 pg/mL Normal 232-1245 [facility] Comment on above: Performed By: #### Larisa CRISTINA UAX #### [facility] [address] [place] [address] Rn Hemodialysis Charge: Stephan Darby MD XR WRIST LEFT (MIN 3 VIEWS)o n 07-12-2022 Unremarkable left wrist. [facility] EXAMINATION: XRAY VIEWS OF THE LEFT WRIST 07/12/2022 3:24 pm COMPARISON: June 21, 2022. HISTORY: ORDERING SYSTEM PROVIDED HISTORY: Unspecified sprain of left wrist, subsequent encounter TECHNOLOGIST PROVIDED HISTORY: SYSTOC ORDER ID:->[id number] FINDINGS: Frontal, lateral, and oblique view radiographs of the left wrist were obtained. Bone mineralization is normal. The osseous structures are intact without acute fracture or destructive abnormality. Carpal joint relationships are maintained. No significant degenerative findings. No appreciable soft tissue abnormality. [facility] Oleksandr Smith MD - 07/12/2022 EXAMINATION: XRAY VIEWS OF THE LEFT WRIST 07/12/2022 3:24 pm COMPARISON: June 21, 2022. HISTORY: ORDERING SYSTEM PROVIDED HISTORY: Unspecified sprain of left wrist, subsequent encounter TECHNOLOGIST PROVIDED HISTORY: SYSTOC ORDER ID:->[id number] FINDINGS: Frontal, lateral, and oblique view radiographs of the left wrist were obtained. Bone mineralization is normal. The osseous structures are intact without acute fracture or destructive abnormality. Carpal joint relationships are maintained. No significant degenerative findings. No appreciable soft tissue abnormality. IMPRESSION: Unremarkable left wrist. [facility] Work Phone: Radiology Study observation (narrative) [employer] [facility] [employer] Phone: XR WRIST LEFT (MIN 3 VIEWS)O rdered By: Oleksandr Smith on 07-12-2022 [facility] Phone: CBC AUTO DIFFon 02-05-2021 BASO # 0.1 103/ul Normal 0.0-0.1 [facility] Comment on above: Performed By: #### C BC #### [facility] [address] [address] Thaddeus Nadya Basophils/100 WBC (Bld) 0.6 % Normal 0.2-2.0 [facility] Comment on above: Performed By: #### C BC #### [facility] [address] [place] [address] Thaddeus Nadya EO # 0.1 103/ul Normal 0.0-0.7 [facility] Comment on above: Performed By: #### C BC #### [facility] [address] [address] Thaddeus Nadya Eosinophils/100 WBC (Bld) 1.3 % Normal 0.9-7.0 [facility] Comment on above: Performed By: #### C BC #### [facility] [address] [place] [address] Thaddeus Nadya Erythrocyte distribution width (RBC) [Ratio] 12.8 % Normal 11.0-15.0 [facility] Comment on above: Performed By: #### C BC #### [facility] [address] [address] Thaddeus Nadya Hematocrit (Bld) [Volume fraction] 42.4 % Normal 42.0-54.0 [facility] Comment on above: Performed By: #### C BC #### [facility] [address] [phone] Thaddeus Nadya Hemoglobin (Bld) [Mass/Vol] 13.7 g/dL Critically low 14.0-18.0 [facility] Comment on above: Performed By: #### C BC #### [facility] [address] [place] [address] Thaddeus Nadya IG # 0.03 10e3/ul Normal 0.00-0.03 [facility] Comment on above: Performed By: #### C BC #### [facility] [address] [place] [address] Thaddeus Nadya IG % 0.4 % Normal 0.0-0.5 [facility] Comment on above: Performed By: #### C BC #### [facility] [address] [place] [address] Thaddeus Nadya LYMPH # 1.9 103/ul Normal 1.2-3.8 [facility] Comment on above: Performed By: #### C BC #### [facility] [address] [place] [address] Thaddeusnavjot [place] Lymphocytes/100 WBC (Bld) 24.3 % Normal 20.5-60.0 [facility] Comment on above: Performed By: #### C BC #### [facility] [address] [place] [address] Thaddeusnavjot [place] MANUAL DIFF REQ NO Normal [facility] Comment on above: Performed By: #### C BC #### [facility] [address] [place] [address] Thaddeusnavjot [place] MCH (RBC) [Entitic mass] 31.1 pg Normal 25.9-34.0 [facility] Comment on above: Performed By: #### C BC #### [facility] [address] [place] [address] Thaddeusnavjot [place] MCHC (RBC) [Mass/Vol] 32.3 g/dL Normal 29.9-35.2 [facility] Comment on above: Performed By: #### C BC #### [facility] [address] [place] [address] Thaddeus Nadya MCV (RBC) [Entitic vol] 96.4 fL Critically high 80.0-94.0 [facility] Comment on above: Performed By: #### C BC #### [facility] [address] [place] [address] Thaddeus Nadya MONO # 0.5 103/ul Normal 0.3-0.8 [facility] Comment on above: Performed By: #### C BC #### [facility] [address] [phone] Thaddeus Bermudezen Monocytes/100 WBC (Bld) 6.7 % Normal 1.7-12.0 [facility] Comment on above: Performed By: #### C BC #### [facility] [address] [phone] Thaddeus [place] NEUT # 5.2 103/ul Normal 1.4-6.5 [facility] Comment on above: Performed By: #### C BC #### [facility] [address] [place], [place] [phone] Thaddeus Bermudezen Neutrophils/100 WBC (Bld) 66.7 % Normal 43.0-75.0 [facility] Comment on above: Performed By: #### C BC #### [facility] [address] [place], [place] [phone] Thaddeus [place] Platelet mean volume (Bld) [Entitic vol] 9.1 fL Critically low 9.5-13.5 [facility] Comment on above: Performed By: #### C BC #### [facility] [address] [place], [place] [phone] Thaddeusnavjot Bermudezen PLT 266 103/ul Normal 150-450 [facility] Comment on above: Performed By: #### C BC #### [facility] [address] [place], [place] [phone] Thaddeus Nadya RBC 4.40 106/ul Critically low 4.70-6.10 [facility] Comment on above: Performed By: #### C BC #### [facility] [address] [place], [place] [phone] Thaddeus Nadya WBC 7.7 103/ul Normal 4.0-11.0 [facility] Comment on above: Performed By: #### C BC #### [facility] [address] [place] [address] Thaddeusnavjot Bermudezen ETHANOL (BLD ALC)on 02-06-20 21 ALC NOTE NOTE: 80 mg/dl is th e legal limit for a blood alcohol level Normal [facility] Comment on above: Performed By: #### E TH #### [facility] [address] [id number] Thaddeusnavjot [place] Ethanol [Mass/Vol] mg/dL Normal The [facility] Comment on above: Performed By: #### E TH #### [facility] [address] [id number] Thaddeus [place] PROF 14(COMP METB)on 021 Albumin [Mass/Vol] 3.6 g/dL Normal 3.5-5.0 The [facility] Comment on above: Performed By: #### C MP #### [facility] [address] [place], [place] [id number] Thaddeus Nadya Albumin/Globulin [Mass ratio] 1.0 {ratio} Normal [facility] Comment on above: Performed By: #### C MP #### [facility] [address] [place] [address] Thaddeus Nadya ALP [Catalytic activity/Vol] 48 U/L Normal 38-126 [facility] Comment on above: Performed By: #### C MP #### [facility] [address] [place] [address] Thaddeus Nadya ALT [Catalytic activity/Vol] 36 U/L Normal 21-72 [facility] Comment on above: Performed By: #### C MP #### [facility] [address] [place], [place] [id number] Thaddeus Nadya Anion gap [Moles/Vol] 7.4 mmol/L Normal [facility] Comment on above: Performed By: #### C MP #### [facility] [address] [place] [address] Thaddeus Nadya AST [Catalytic activity/Vol] 18 U/L Normal 17-59 [facility] Comment on above: Performed By: #### C MP #### [facility] [address] [place] [address] Thaddeus Nadya Bilirubin [Mass/Vol] 0.3 mg/dL Normal 0.2-1.3 [facility] Comment on above: Performed By: #### C MP #### [facility] [address] [id number] Thaddeus Nadya Calcium [Mass/Vol] 8.9 mg/dL Normal 8.4-10.2 The [facility] Comment on above: Performed By: #### C MP #### [facility] [address] [address] Thaddeus Nadya Chloride [Moles/Vol] 102 mmol/L Normal 98-107 [facility] Comment on above: Performed By: #### C MP #### [facility] [address] [address] Thaddeus Nadya CO2 [Moles/Vol] 33.5 mmol/L Critically high 22.0-30.0 [facility] Comment on above: Performed By: #### C MP #### [facility] [address] [place] [address] Thaddeus Nadya Creatinine [Mass/Vol] 1.22 mg/dL Normal 0.66-1.25 [facility] Comment on above: Performed By: #### C MP #### [facility] [address] [place], [place] [id number] Thaddeus Nadya EGFR-AF GUYANESE >60 Normal >=60 The [facility] Comment on above: Performed By: #### C MP #### [facility] [address] [place], [place] [id number] Thaddeus Nadya EGFR-NON AF GUYANESE >60 Normal >=60 [facility] Comment on above: Performed By: #### C MP #### [facility] [address] [place], [place] [id number] Thaddeus Nadya Globulin (S) [Mass/Vol] 3.7 g/dL Normal [facility] Comment on above: Performed By: #### C MP #### [facility] [address] [id number] Thaddeus Nadya Glucose [Mass/Vol] 187 mg/dL Critically high 74-106 [facility] Comment on above: Performed By: #### C MP #### [facility] [address] [address] Thaddeus Nadya Potassium [Moles/Vol] 3.9 mmol/L Normal 3.4-5.0 The [facility] Comment on above: Performed By: #### C MP #### [facility] [address] [id number] Thaddeus Nadya Protein [Mass/Vol] 7.3 g/dL Normal 6.1-8.2 [facility] Comment on above: Performed By: #### C MP #### [facility] [address] [id number] Thaddeus Nadya Sodium [Moles/Vol] 139 mmol/L Normal 137-145 [facility] Comment on above: Performed By: #### C MP #### [facility] [address] [id number] Thaddeus Nadya Urea nitrogen [Mass/Vol] 16.0 mg/dL Normal 9.0-20.0 [facility] Comment on above: Performed By: #### C MP #### [facility] [address] [id number] Thaddeus Nadya Urea nitrogen/Creatinin e [Mass ratio] 13.1 mg/mg Normal [facility] Comment on above: Performed By: #### C MP #### [facility] [address] [place], [place] [address] Thaddeus Bermudezen XR HAND LT MIN 3Von 02-06-20 21 XR HAND LT MIN 3V EXAM: XR HAND LT MIN 3V HISTORY: The patient is a 30-year-old male with left hand pain after drill injury. COMPARISON: None. FINDINGS: The left hand is radiographically negative with no evidence of fracture, dislocation, joint space narrowing, erosions, osteophytes, or other osseous or articular abnormalities. No radiopaque foreign bodies are seen. No puncture wounds are identified. IMPRESSION: Negative. Electronically authenticated by: NAVJOT DAMIAN Date: 2021-02-05 20:44 Normal [facility] Vital Signs Date Time Vital Sign Value Performing Clinician Migdalia alvarez 07-31-2022 09:21-0400 Body mass index (BMI) [Ratio] 24.39 kg/m2 Silvia Jaramillo DO Work Phone: [facility] 07-31-2022 09:21-0400 Body temperature 96.4 [degF] Silvia Clint DO [facility] 07-31-2022 09:21-0400 Body weight 77.11 kg Silvia Clint DO Work Phone: [employer] [facility] 07-31-2022 09:21-0400 Diastolic blood pressure 75 mm[Hg] Silvia Clint DO Work Phone: [facility] [employer] 07-31-2022 09:21-0400 Heart rate 103 /min Silvia Clint DO Work [facility] 07-31-2022 09:21-0400 Respiratory rate 18 /min Silvia Clint DO [facility] 07-31-2022 09:21-0400 SaO2% (BldA) [Mass fraction] 96 % Silvia Clint DO [facility] 07-31-2022 09:21-0400 Systolic blood pressure 122 mm[Hg] Silvia Clint DO Work Phone: [facility] [employer] Encounters Encounter Date Encounter Type Care Provider Facility Start: 01-12-2024 End: 01-13-2024 Emergency department patient visit LISANDRA THAKKAR [facility] Start: 11-05-2023 End: 11-05-2023 Emergency department patient visit VIKAS [facility] Start: 09-01-2022 End: 09-05-2022 Evaluation and management of inpatient GIULIA Milagros TYJONG [facility] Start: 08-28-2022 End: 09-01-2022 Evaluation and management of inpatient ASHWINI AYUSH [facility] Start: 07-31-2022 End: 07-31-2022 Emergency department patient visit Silvia Penas DO Work Phone: [facility] ED Comment on above: Pain, dental (Primar y Dx); Dental caries Start: 07-12-2022 End: 07-14-2022 Subsequent hospital visit by physician Junito Hart Dr Room 4 [facility] Comment on above: Unspecified sprain o f left wrist, subsequent encounter Start: 02-05-2021 End: 02-06-[address] CATALINA DO Facility:[facility] Start: 06-07-2020 End: 06-07-[address] VIKAS BRYANT Facility:[facility] Procedures Date Procedure Procedure Detail Performing Clinician Start: 07-12-2022 Radex wrist complete minimum 3 views Lucie Flynn LEAKAGE TESTER - ASSISTANT PROFESSOR OF NURSING Work Phone: Plan of Treatment Date Care Activity Detail Author Start: 02-05-2031 DTaP/Tdap/Td vaccine (3 - Td or Tdap) DTaP/Tdap/Td vaccine (3 - Td or Tdap) [facility] Start: 05-02-2022 Influenza vaccination Flu vaccine (# 1) [facility] Start: 2009 Hepatitis C screening Hepatitis C sc reen [facility] Start: 2006 HIV screening HIV screen [facility] Start: 2003 Depression Screen Depression Screen [facility] Start: 1997 Pneumococcal 0-64 ye ars Vaccine (1 - PCV) Pneumococcal 0-64 years Vaccine (1 - PCV) [facility] Start: 1992 Varicella vaccine (1 of 2 - 2-dose childhood series) Varicella vaccine (1 of 2 - 2-dose childhood series) [facility] Start: 01-09-1992 COVID-19 Vaccine (#1) COVID-19 Vacci ne (#1) [facility] Immunizations Immunization Date Immunization Notes Care Provider Marlen rodriguez 08-07-2002 tetanus toxoid, redu trini diphtheria toxoid, and acellular pertussis vaccine, adsorbed [facility] 4 [facility] Payers Date Payer Category Payer Private Health Insurance [id number] 2022 Unknown RAGHAVENDRA KEMP [id number] 2022-Present [phone] [address] [place] [address] [id number] 1991 Unknown [id number] 1991 Unknown [id number] 1991 Unknown [id number] 1991 Unknown [id number] 1991 Unknown [id number] 1991 Unknown [id number] 1991 Unknown [id number] 1959 Unknown [id number] Social History Date Type Detail Facility Start: 05-07-2018 [facility] [employer] Phone: History of tobacco use Cigarette Smoker B [facility] [employer] Phone: Start: 05-07-2018 Cigarettes smoked current (pack per day) - Reported 0.5 [employer] Phone: Start: 05-07-2018 Tobacco use and exposure Smoke less tobacco non-user [employer] Phone: Start: 06-21-2022 End: 07-31-2022 Alcohol intake Current non-drinker of alcohol (finding) [employer] Phone: Start: 1990 Sex Assigned At Not on file B ON [employer] Phone: Start: 06-11-2022 End: 07-31-2022 Exposure to SARS-CoV-2 (event) Not sure [facility] Phone: Hospital Discharge instructions 07-31-2022 Discharge InstructionsAttachments Note Date & Type Note Facility 07-31-2022 Hospital Discharg e instructions Silvia Jaramillo DO - 07/31/2022 10:02 AM EDT Take antibiotics as prescribed. If you have any new or worsening symptoms, return to this emergency room as we discussed this would include elevation of your tongue, swelling under your chin, difficulty swallowing, difficulty breathing, fevers or chills. Take Tylenol and Motrin for your pain. Please use the dental list to find a dentist to go to in the next week The following attachments cannot be sent through Care Everywhere.Periodontal Conditions (Indonesian)Tooth Decay (Indonesian)Tooth Extraction (Indonesian)documented in this encounter [employer] Phone: Evaluation note Note Date & Type Note Facility Evaluation note Diagnosis Unspecified sprain of left wrist, subsequent encounter documented in this encounter [employer] Phone: Evaluation note Note Date & Type Note Facility Evaluation note Diagnosis Pain, dental- Primary Unspecified disorder of the teeth and supporting structures Dental caries Unspecified dental caries documented in this encounter [employer] Phone: Summary Purpose Family History No Family History Records FoundNo Family History Records FoundNo Family History Records FoundNo Family History Records FoundNo Family History Records Found Advance Directives No Advanced Directives Records FoundNo Advanced Directives Records FoundNo Advanced Directives Records FoundNo Advanced Directives Records FoundNo Advanced Directives Records Found Additional Source Comments (unrecognized sect ion and content) No Status Records FoundNo Status Records FoundNo Status Records FoundNo Status Records FoundNo Status Records Found INFORMATION SOURCE (unrecogn ized section and content) DATE CREATED AUTHOR 02/10/2021 Zulma myles DATE CREATED AUTHOR 'S ORGANIZ ATION 09/03/2022 [facility] DATE CREATED AUTHOR 'S ORGANIZ ATION 09/06/2022 [facility] DATE CREATED AUTHOR AUTHOR'S ORGANIZ ATION 11/07/2023 [facility] DATE CREATED AUTHOR AUTHOR'S ORGANIZ ATION 01/13/2024 [facility] Care Teams (unrecognized sec tion and content) 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 Ordered Prescriptions (unrec ognized section and content) Prescription Sig Dispensed Refills Start Date End Da te chlorhexidine (PERIDEX) 0.12 % solution Take 15 mLs by mouth 2 times daily for 14 days 420 mL 0 07/31/2022 08/14/2022 clindamycin (CLEOCIN) 300 MG capsule Take 1 capsule by mouth 3 times daily for 10 days 30 capsule 0 07/31/2022 08/10/2022 nicotine (NICODERM CQ) 21 MG/24HR Place 1 patch onto the skin daily for 10 days 10 patch 0 07/31/2022 08/10/2022 Scheduled Active and Recently Administ ered Medications (unrecognized section and content) Medication Order 07/29/2022 07/30/2022 07/31/2022 clindamycin (CLEOCIN) capsule 300 mg (COMPLETED) 300 mg, Oral, ONCE, 1 dose, On 07/31/22 at 1000, Antimicrobial Indications: Head and Neck Infection 1002 (Given - Provid er: Dahiana Coon RN) ketorolac (TORADOL) injection 30 mg (COMPLETED) Ketorolac is contraindicated in patients with advanced renal impairment and in patients at risk of renal failure due to volume depletion. For 65 years of age and older OR weight less than 50 kg, use 15 mg IV every 6 hours; MAX dose: 60 mg/day. Dose greater than 30 mg must be administered via intramuscular route. Do not administer for more than 5 days., 30 mg, IntraMUSCular, ONCE, 1 dose, On 07/31/22 at 1000, Do not administer for more than 5 days. 1002 (Given - Provid er: Dahiana Coon RN) nicotine (NICODERM CQ) 21 MG/24HR 1 patch 1 patch, TransDERmal, Administer over 24 Hours, DAILY, First dose on 07/31/22 at 1000, Apply new patch to nonhairy, clean, dry skin on the upper body or upper outer arm. Rotate patch sites. Notify pharmacy if patient or provider prefers patch to be removed at bedtime and replaced in the morning. Hazardous Medication -- Refer to facility policy for handling and disposal. 1002 (Patch Applied - Provider: Dahiana Coon RN) FOR RECORDS PERTAINING TO PATIENTS WHO ARE OR HAVE BEEN ENROLLED IN A CHEMICAL DEPENDENCY/SUBSTANCEABUSE PROGRAM, SOME INFORMATION MAY BE OMITTED. This clinical summary was aggregated from multiple sources. Caution should be exercised in using it in the provision of clinical care. This summary normalizes information from multiple sources, and as a consequence, information in this document may materially change the coding, format and clinical context of patient data. In addition, data may be omitted in some cases. CLINICAL DECISIONS SHOULD BE BASED ON THE PRIMARY CLINICAL RECORDS. [employer] provides no warranty or guarantee of the accuracy or completeness of information in this document.
[2024-01-27 09:29] LABS: Basophils Percent Auto 0.6 % (0.2-2.0); Eosinophils Absolute Auto 0.1 10^3/uL (0.0-0.7); Hematocrit 40.2 % (42.0-54.0); Hemoglobin 13.4 g/dL (14.0-18.0); Immature Granulocytes Abs Auto 0.01 10^3/uL (0.00-0.03); Immature Granulocytes Pct Auto 0.1 % (0.0-0.5); Lymphocytes Absolute Auto 1.6 10^3/uL (1.2-3.8); Mean Corpuscular HGB Conc 33.3 g/dL (29.9-35.2); Mean Corpuscular Hemoglobin 32.1 pg (25.9-34.0); Mean Corpuscular Volume 96.2 fL (80.0-94.0); Mean Platelet Volume 9.5 fL (9.5-13.5); Monocytes Absolute Auto 0.9 10^3/uL (0.3-0.8); Monocytes Percent Auto 12.1 % (1.7-12.0); Neutrophils Absolute Auto 4.5 10^3/uL (1.4-6.5); Neutrophils Percent Auto 63.2 % (43.0-75.0); Platelet Count 260 10^3/uL (150-450); Red Blood Count 4.18 10^6/uL (4.70-6.10); Red Cell Distribution Width 13.2 % (11.0-15.0); White Blood Count 7.1 10^3/uL (4.0-11.0)
[2024-01-27 10:23] LABS: Alanine Aminotransferase 43 U/L (16-63); Alkaline Phosphatase 45 U/L (46-116); Anion Gap 10.4; Aspartate Amino Transferase 31 U/L (15-37); BUN Creatinine Ratio 23.7; Bilirubin Total 0.3 mg/dL (0.2-1.0); Calcium 9.5 mg/dL (8.5-10.1); Carbon Dioxide 31.8 mmol/L (21.0-32.0); Chloride 102 mmol/L (98-107); Estimated GFR (African America >60 (>=60); Estimated GFR (Non-African Ame >60 (>=60); Globulin 3.4 g/dL; Glucose 93 mg/dL (74-106); Potassium 4.2 mmol/L (3.5-5.1); Sodium 140 mmol/L (136-145); Total Protein 7.4 g/dL (6.4-8.2)
[2024-01-27 10:24] LABS: Albumin Globulin Ratio 1.2; Amylase 52 U/L (25-115)
== END 2024-01-27 08:57 | disposition home or self-care (01) ==
PROVIDERS: PCP Family Medicine; Visit Provider Family Medicine
DX: K52.9 Noninfective gastroenteritis and colitis, unspecified (principal)
CPT/HCPCS: 36415; 74022; 74177; 80053; 82150; 83690; 85025; Q9967

== ENCOUNTER 2024-02-08 10:16 | Outpatient (OUT) | payer OTHER, SELFPAY ==
[2024-02-08 10:39] LABS: Basophils Absolute Auto 0.1 10^3/uL (0.0-0.1); Eosinophils Absolute Auto 0.3 10^3/uL (0.0-0.7); Eosinophils Percent Auto 4.6 % (0.9-7.0); Hematocrit 42.8 % (42.0-54.0); Hemoglobin 14.3 g/dL (14.0-18.0); Immature Granulocytes Abs Auto 0.01 10^3/uL (0.00-0.03); Immature Granulocytes Pct Auto 0.2 % (0.0-0.5); Lymphocytes Absolute Auto 2.3 10^3/uL (1.2-3.8); Lymphocytes Percent Auto 38.2 % (20.5-60.0); Mean Corpuscular HGB Conc 33.4 g/dL (29.9-35.2); Mean Corpuscular Hemoglobin 31.4 pg (25.9-34.0); Mean Corpuscular Volume 94.1 fL (80.0-94.0); Mean Platelet Volume 10.2 fL (9.5-13.5); Monocytes Absolute Auto 0.9 10^3/uL (0.3-0.8); Monocytes Percent Auto 14.9 % (1.7-12.0); Neutrophils Absolute Auto 2.4 10^3/uL (1.4-6.5); Neutrophils Percent Auto 41.1 % (43.0-75.0); Platelet Count 266 10^3/uL (150-450); Red Blood Count 4.55 10^6/uL (4.70-6.10); Red Cell Distribution Width 12.4 % (11.0-15.0); White Blood Count 5.9 10^3/uL (4.0-11.0)
[2024-02-08 10:48] LABS: Erythrocyte Sedimentation Rate 10 mm/hr (<=15)
[2024-02-08 11:47] LABS: Alanine Aminotransferase 63 U/L (16-63); Albumin Globulin Ratio 1.1; Albumin Level 3.7 g/dL (3.4-5.0); Alkaline Phosphatase 51 U/L (46-116); Amylase 62 U/L (25-115); Anion Gap 10.5; Aspartate Amino Transferase 28 U/L (15-37); BUN Creatinine Ratio 24.7; Bilirubin Total 0.4 mg/dL (0.2-1.0); C Reactive Protein <0.50 mg/dL (<=0.50); Calcium 9.8 mg/dL (8.5-10.1); Carbon Dioxide 32.4 mmol/L (21.0-32.0); Chloride 101 mmol/L (98-107); Estimated GFR (African America >60 (>=60); Estimated GFR (Non-African Ame >60 (>=60); Globulin 3.4 g/dL; Glucose 86 mg/dL (74-106); Potassium 3.9 mmol/L (3.5-5.1); Sodium 140 mmol/L (136-145); Total Protein 7.1 g/dL (6.4-8.2)
== END 2024-02-08 10:17 | disposition home or self-care (01) ==
LOC: LAB 10:17
PROVIDERS: PCP Family Medicine; Visit Provider Family Medicine
DX: K52.9 Noninfective gastroenteritis and colitis, unspecified (principal)
CPT/HCPCS: 36415; 80053; 82150; 83690; 85025; 85652; 86140

== ENCOUNTER 2024-02-27 13:43 | Emergency (ER) | payer SELFPAY ==
[2024-02-27 13:47] VITALS: BP 151/107; PULSE 92; TEMP 36.6; O2SAT 98; BMI 24.4
--- NOTE | 2024-02-27 14:00 | ECG_ITS ---
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
--- NOTE | 2024-02-27 14:08 | XR_ITS ---
The [address] [address] Patient Name: NAWAF MIRANDA MRN: [id number] date: 1990 Sex: M Assigned Patient Location: ER Current Patient Location: Accession/Order Number: [id number] Exam Date: 02/27/2024 14:43 Report Date: 02/27/2024 15:44 At the request of: LUKAS LERMA Procedure: XR acute abdomen series EXAM: XR acute abdomen series TECHNIQUE: Frontal view chest. Supine and upright views of the abdomen. HISTORY: abd pain COMPARISON: 01/27/2024 FINDINGS: The heart and mediastinum are unremarkable. Lung avery are clear. No evidence for bowel obstruction. Moderate retained stool throughout the colon. No evidence for free intraperitoneal air. Phleboliths in the right hemipelvis. No acute osseous abnormality. XR/XR acute abdomen series IMPRESSION: Moderate retained stool throughout the colon. Electronically authenticated by: TOSHA DAVID Date: 02/27/2024 15:44
--- NOTE | 2024-02-27 14:09 | ED.GENADUL1 ---
HPI HPI - General Adult General Chief complaint: Dizziness Stated complaint: ABDOMINAL PAIN, DIZZY, SHAKEY Time Seen by Provider: 02/27/24 13:47 Source: patient Mode of arrival: walk-in Limitations: no limitations History of Present Illness HPI narrative: 33-year-old male presents to the emergency department with mother with complaint of feeling dizzy for about a week. Dizziness mainly, and when he goes from lying, sitting position to standing. States he will also have it, and if he has been standing for an extended period of time. Describes as somewhat spinning, lightheaded. He also states he has had abdominal pain, ongoing for several months. Currently being evaluated by his doctor. Denies any worsening of this pain. He goes between diarrhea and constipation. Has had nausea and vomiting. Denies any chest pain, shortness of breath, fever, chills. Currently reporting that symptoms have improved. Quality:?As above Severity:?Moderate Timing:?As above Context: Normal setting and activity? Modifying factors:?As above Associated symptoms: As above Related Data Home Medications ?Medication ?Instructions ?Recorded ?Confirmed lisinopril 20 mg tablet 20 mg PO DAILY 06/27/23 02/27/24 multivitamin 1 tab PO DAILY 06/27/23 02/27/24 diclofenac sodium 75 mg 75 mg PO BID 02/27/24 02/27/24 tablet,delayed release dicyclomine 20 mg tablet 20 mg PO BID 02/27/24 02/27/24 meloxicam 15 mg tablet 15 mg PO DAILY 02/27/24 02/27/24 omeprazole 40 mg capsule,delayed 40 mg PO DAILY 02/27/24 02/27/24 release ondansetron 4 mg disintegrating 4 mg PO Q8H PRN nausea and vomiting 02/27/24 02/27/24 tablet tizanidine 4 mg capsule 4 mg PO BID PRN muscle spasticity 02/27/24 02/27/24 Allergies Allergy/AdvReac Type Severity Reaction Status Date / Time cephalexin Allergy Vomiting Verified 06/29/23 10:53 clindamycin [From Cleocin] Allergy Rash Verified 06/29/23 10:53 Opioid HPI Opioid Management Most Recent Opioid Data: Last Pain Scale 2 06/29/23 10:20 Review of Systems ROS Narrative CONST: Denies fever, chills HENT: Denies congestion, sore throat EYES: + visual disturbance. States left eye gets blurry with the dizzienss. Denies eye redness RESP: Denies cough, shortness of breath CV: Denies chest pain, palpitations GI: + abd pain, nausea, vomiting, diarrhea, constipation : Denies dysuria, flank pain MS: Denies back pain, myalgias SKIN: Denies color change, rash NEURO: + dizziness, headache. Denies numbness, weakness PSYCHIATRIC: Denies confusion, agitation [facility] Medical History (Updated 02/27/24 @ 15:48 by LEVI Mtz) Pain, joint, shoulder, right ?M25.511 - Pain in right shoulder (ICD-10) Orbital floor fracture ?S02.30XA - Fracture of orbital floor, unspecified side, initial encounter for closed fracture (ICD-10) Hypertension ?I10 - Essential (primary) hypertension (ICD-10) Hepatitis C ?B19.20 - Unspecified viral hepatitis C without hepatic coma (ICD-10) Exam Narrative Exam Narrative: Vital signs reviewed Nurses notes noted CONST: Nontoxic, well appearing, well nourished, in no distress.? No diaphoresis.?? HENT: normocephalic, atraumatic, moist mucous membrane, no abnormalities of the nose noted, hearing normal, no facial droop EYES: PERRL, EOMI.? normal appearing conjunctiva, no apparent discharge bilat NECK: normal appearance CV: normal rate, regular rhythm, no murmur RESP: normal effort, speaking in complete sentences. Lung sounds clear and equal bilat.? No wheezes, rales, rhonchi GI: normal bowel sounds, soft, no distension. + diffuse tenderness in the epigastric region : no CVA tenderness MS: no edema, injury SKIN: no pallor NEURO: A&Ox 3, GCS = 15, no sensory, motor deficits.? CN normal as tested. NIH = 0.? No abnormalities noted with coordination. Steady gait. PSYCH: normal mood, affect.? Normal speech.? Memory intact Constitutional Vital Signs, click to edit/add: Last Vital Signs Temp 97.8 F 02/27/24 13:47 Pulse 84 02/27/24 14:36 Resp 18 02/27/24 13:47 BP 139/96 H 02/27/24 14:36 Pulse Ox 98 02/27/24 13:47 O2 Del Method Room Air 02/27/24 13:47 Course Vital Signs Vital signs: Vital Signs Temperature 97.8 F 02/27/24 13:47 Pulse Rate 92 H 02/27/24 13:47 Respiratory Rate 18 02/27/24 13:47 Blood Pressure 151/107 H 02/27/24 13:47 Pulse Oximetry 98 02/27/24 13:47 Oxygen Delivery Method Room Air 02/27/24 13:47 Temperature 97.8 F 02/27/24 13:47 Pulse Rate 84 02/27/24 14:36 Respiratory Rate 18 02/27/24 13:47 Blood Pressure 139/96 H 02/27/24 14:36 Pulse Oximetry 98 02/27/24 13:47 Oxygen Delivery Method Room Air 02/27/24 13:47 Medical Decision Making MDM Narrative Medical decision making narrative: This is a pleasant 33-year-old male who presented to the emergency department with mother with 1 week history of dizziness. Symptoms come on with changes in position or if he has been standing on for a little while. Denies any presyncopal symptoms. Has had characteristics of lightheadedness, spinning. Has had associated nausea and vomiting. Patient also has ongoing problems with his stomach. Has had pain since October. Currently under evaluation by his primary provider for this. Reports no worsening of his abdominal pain. Denies any fever, chills. Has had diarrhea and constipation intermittently. On arrival, afebrile, vital signs are stable. On exam, nontoxic, well-appearing patient in no distress. Heart regular rate and rhythm. Lung sounds clear and equal bilaterally. He has upper abdominal tenderness without guarding, rebound, distention. No focal findings on neurologic exam. Cranial nerves were intact, as tested. Gait steady. She reveals no acute or concerning changes Labs reveal No leukocytosis, anemia, thrombocytopenia, electrolyte imbalance, renal impairment. Glucose 97. LFTs, lipase unremarkable. CT head imaging, per radiologist reveals no acute findings. Acute abdominal series x-ray imaging, per radiologist reveals moderately retained stool throughout the colon. He was not orthostatic per nursing evaluation Favor nonspecific dizziness, chronic abdominal pain CVA less likely based on history and physical exam, no concerning findings were noted by radiologist on CT head Perforation less likely based on history and physical exam, normal white count, no changes in severity of his pain since onset in October. Prior records were reviewed. CT Scan performed on 01/27/2024, per radiology report impression: 1. Nonspecific proximal small bowel mural thickening suggestive of enteritis or intrinsic small bowel disease. CT was considered today. Patient's symptoms not worsening. No leukocytosis. Disposition ? The patient was discharged. Plan: Patient will be discharged to home. Condition at time of disposition: stable ? Advised to follow up with primary provider. He has an appointment tomorrow. Advised to return for any worsening and/or development of new, concerning signs or symptoms PLEASE NOTE: Portions of the medical record may have been produced using electronic video software engineer and may contain errors with respect to translation of words which may not have been identified prior to finalization of the chart. Medical Records Medical records reviewed: Yes I reviewed the patient's medical records Lab Data Lab results reviewed: Yes I reviewed the patient's lab results Labs: Lab Results 02/27/24 Range/Units 13:54 WBC 6.0 (4.0-11.0) 10^3/uL RBC 4.31 L (4.70-6.10) 10^6/uL Hgb 13.5 L (14.0-18.0) g/dL Hct 40.4 L (42.0-54.0) % MCV 93.7 (80.0-94.0) fL MCH 31.3 (25.9-34.0) pg MCHC 33.4 (29.9-35.2) g/dL RDW 12.1 (11.0-15.0) % Plt Count 279 (150-450) 10^3/uL MPV 9.7 (9.5-13.5) fL Neut % (Auto) 54.8 (43.0-75.0) % Lymph % (Auto) 30.6 (20.5-60.0) % Lea % (Auto) 10.0 (1.7-12.0) % Eos % (Auto) 3.2 (0.9-7.0) % Baso % (Auto) 1.2 (0.2-2.0) % Neut # (Auto) 3.3 (1.4-6.5) 10^3/uL Lymph # (Auto) 1.8 (1.2-3.8) 10^3/uL Lea # (Auto) 0.6 (0.3-0.8) 10^3/uL Eos # (Auto) 0.2 (0.0-0.7) 10^3/uL Baso # (Auto) 0.1 (0.0-0.1) 10^3/uL Abs Immat Gran (auto) 0.01 (0.00-0.03) 10^3/uL Imm/Tot Granulo (auto) 0.2 (0.0-0.5) % Sodium 141 (136-145) mmol/L Potassium 4.1 (3.5-5.1) mmol/L Chloride 101 (98-107) mmol/L Carbon Dioxide 37.0 H (21.0-32.0) mmol/L Anion Gap 7.1 BUN 15.0 (7.0-18.0) mg/dL Creatinine 0.80 (0.70-1.30) mg/dL Est GFR ( Amer) >60 (>=60) Est GFR (Non-Af Amer) >60 (>=60) BUN/Creatinine Ratio 18.8 Glucose 97 (74-106) mg/dL Calcium 8.9 (8.5-10.1) mg/dL Total Bilirubin 0.2 (0.2-1.0) mg/dL AST 15 (15-37) U/L ALT 25 (16-63) U/L Alkaline Phosphatase 71 (46-116) U/L Total Protein 7.0 (6.4-8.2) g/dL Albumin 3.4 (3.4-5.0) g/dL Globulin 3.6 g/dL Albumin/Globulin Ratio 0.9 Lipase 22.0 (16.0-77.0) U/L Imaging Data Abdominal x-ray: Attestation: I have reviewed the pertinent imaging results. Radiologist's impression: ITS Impressions Chest/Abdomen X-ray 02/27/24 14:08 IMPRESSION: Moderate retained stool throughout the colon. Electronically authenticated by: TOSHA DAVID Date: 02/27/2024 15:[address] 02/27/24 14:43 IMPRESSION: 1. Normal examination. Electronically authenticated by: ANAI VILLANUEVA Date: 02/27/2024 14:58 ECG Data Attestation: I personally reviewed and interpreted this ECG as follows: (EKG performed at 1412 reveals sinus rhythm at 90 bpm. No STEMI. No ST abnormalities. No ectopy. Normal axis.) Discharge Plan Discharge Stand Alone Forms: Portal Instructions Chief Complaint: Dizziness Clinical Impression: Nonspecific abdominal pain, Dizziness Constipation Qualifiers: Constipation type: unspecified constipation type Qualified Code(s): K59.00 - Constipation, unspecified Patient Disposition: Home, Self-Care Time of Disposition Decision: 15:48 Condition: Good Mode of Transportation: Private Vehicle Prescriptions / Home Meds: No Action omeprazole 40 mg capsule,delayed release(DR/EC) 40 mg PO DAILY meloxicam 15 mg tablet 15 mg PO DAILY tizanidine 4 mg capsule 4 mg PO BID PRN (Reason: muscle spasticity) ondansetron 4 mg tablet,disintegrating 4 mg PO Q8H PRN (Reason: nausea and vomiting) dicyclomine 20 mg tablet 20 mg PO BID diclofenac sodium 75 mg tablet,delayed release (DR/EC) 75 mg PO BID lisinopril 20 mg tablet 20 mg PO DAILY multivitamin Tablet 1 tab PO DAILY Print Language: Frisian Instructions: Constipation (ED), Abdominal Pain (ED), Dizziness (ED) Referrals: Tawanda Bryant MD [Primary Care Provider] - 1 week Discharge Date/Time: 02/27/24 16:14
[2024-02-27] MEDS: 0.9 % SODIUM CHLORIDE 1,000 ML 999 ML IV (14:14)
[2024-02-27] MEDS: ONDANSETRON PF 4 MG/2 ML VIAL IV (14:25)
[2024-02-27] MEDS: FAMOTIDINE/PF 20 MG/2 ML VIAL IV (14:26)
[2024-02-27 14:33] LABS: Basophils Absolute Auto 0.1 10^3/uL (0.0-0.1); Basophils Percent Auto 1.2 % (0.2-2.0); Eosinophils Absolute Auto 0.2 10^3/uL (0.0-0.7); Eosinophils Percent Auto 3.2 % (0.9-7.0); Hematocrit 40.4 % (42.0-54.0); Hemoglobin 13.5 g/dL (14.0-18.0); Immature Granulocytes Abs Auto 0.01 10^3/uL (0.00-0.03); Immature Granulocytes Pct Auto 0.2 % (0.0-0.5); Lymphocytes Absolute Auto 1.8 10^3/uL (1.2-3.8); Lymphocytes Percent Auto 30.6 % (20.5-60.0); Mean Corpuscular HGB Conc 33.4 g/dL (29.9-35.2); Mean Corpuscular Hemoglobin 31.3 pg (25.9-34.0); Mean Corpuscular Volume 93.7 fL (80.0-94.0); Mean Platelet Volume 9.7 fL (9.5-13.5); Monocytes Absolute Auto 0.6 10^3/uL (0.3-0.8); Neutrophils Absolute Auto 3.3 10^3/uL (1.4-6.5); Neutrophils Percent Auto 54.8 % (43.0-75.0); Platelet Count 279 10^3/uL (150-450); Red Blood Count 4.31 10^6/uL (4.70-6.10); Red Cell Distribution Width 12.1 % (11.0-15.0)
[2024-02-27 14:36] VITALS: BP 130/92; BP 138/90; BP 139/96; PULSE 101; PULSE 104; PULSE 84
--- NOTE | 2024-02-27 14:43 | CT_ITS ---
The [address] [address] Patient Name: NAWAF MIARNDA MRN: [id number] date: 1990 Sex: M Assigned Patient Location: ER Current Patient Location: ER Accession/Order Number: [id number] Exam Date: 02/27/2024 14:39 Report Date: 02/27/2024 14:58 At the request of: LUKAS LERMA Procedure: CT head/brain wo con EXAMINATION: CT head/brain wo con HISTORY: dizziness, visual disturbance , nausea, vomiting, hypertension COMPARISON: No relevant comparison available. TECHNIQUE: Axial CT images were obtained without IV contrast. Dose reduction techniques were achieved by using automated exposure control and/or adjustment of mA and/or kV according to patient size and/or use of iterative reconstruction technique. FINDINGS: BRAIN: No edema, hemorrhage, mass, acute infarction, or inappropriate atrophy. CSF SPACES: No hydrocephalus, subarachnoid hemorrhage, or mass. Appropriate for age. SKULL: No fracture, mass, or other significant visible lesion. SINUSES: No significant mucosal thickening or fluid on the limited views. ORBITS: No appreciable abnormality on the limited views. OTHER: Negative CT/CT head/brain wo con IMPRESSION: 1. Normal examination. Electronically authenticated by: ANAI VILLANUEVA Date: 02/27/2024 14:58
[2024-02-27 14:45] LABS: Alanine Aminotransferase 25 U/L (16-63); Albumin Globulin Ratio 0.9; Albumin Level 3.4 g/dL (3.4-5.0); Alkaline Phosphatase 71 U/L (46-116); Anion Gap 7.1; Aspartate Amino Transferase 15 U/L (15-37); BUN Creatinine Ratio 18.8; Bilirubin Total 0.2 mg/dL (0.2-1.0); Calcium 8.9 mg/dL (8.5-10.1); Chloride 101 mmol/L (98-107); Estimated GFR (African America >60 (>=60); Estimated GFR (Non-African Ame >60 (>=60); Globulin 3.6 g/dL; Glucose 97 mg/dL (74-106); Potassium 4.1 mmol/L (3.5-5.1); Sodium 141 mmol/L (136-145)
== END 2024-02-27 16:14 | disposition home or self-care (01) ==
PROVIDERS: Physician Assistant; Emergency Provider Emergency Medicine; PCP Family Medicine
DX: R42 Dizziness and giddiness (principal); R10.9 Unspecified abdominal pain; K59.00 Constipation, unspecified
CPT/HCPCS: 36415; 70450; 74022; 80053; 83690; 85025; 93005; 96361; 96374; 96375; 99285

== ENCOUNTER 2024-02-28 11:03 | Outpatient (OUT) | payer SELFPAY ==
[2024-02-28 11:53] LABS: Basophils Absolute Auto 0.1 10^3/uL (0.0-0.1); Basophils Percent Auto 0.8 % (0.2-2.0); Eosinophils Absolute Auto 0.2 10^3/uL (0.0-0.7); Eosinophils Percent Auto 2.6 % (0.9-7.0); Hematocrit 39.9 % (42.0-54.0); Hemoglobin 13.3 g/dL (14.0-18.0); Immature Granulocytes Abs Auto 0.01 10^3/uL (0.00-0.03); Immature Granulocytes Pct Auto 0.2 % (0.0-0.5); Lymphocytes Absolute Auto 1.7 10^3/uL (1.2-3.8); Lymphocytes Percent Auto 28.5 % (20.5-60.0); Mean Corpuscular HGB Conc 33.3 g/dL (29.9-35.2); Mean Corpuscular Hemoglobin 30.7 pg (25.9-34.0); Mean Corpuscular Volume 92.1 fL (80.0-94.0); Mean Platelet Volume 9.8 fL (9.5-13.5); Monocytes Absolute Auto 0.7 10^3/uL (0.3-0.8); Monocytes Percent Auto 11.5 % (1.7-12.0); Neutrophils Absolute Auto 3.4 10^3/uL (1.4-6.5); Neutrophils Percent Auto 56.4 % (43.0-75.0); Platelet Count 279 10^3/uL (150-450); Red Blood Count 4.33 10^6/uL (4.70-6.10); Red Cell Distribution Width 12.1 % (11.0-15.0); White Blood Count 6.1 10^3/uL (4.0-11.0)
[2024-02-28 12:03] LABS: Alanine Aminotransferase 27 U/L (16-63); Albumin Globulin Ratio 0.9; Albumin Level 3.3 g/dL (3.4-5.0); Alkaline Phosphatase 72 U/L (46-116); Amylase 65 U/L (25-115); Anion Gap 5.6; Aspartate Amino Transferase 18 U/L (15-37); BUN Creatinine Ratio 15.9; Bilirubin Total 0.2 mg/dL (0.2-1.0); C Reactive Protein <0.50 mg/dL (<=0.50); Calcium 8.6 mg/dL (8.5-10.1); Carbon Dioxide 36.1 mmol/L (21.0-32.0); Chloride 101 mmol/L (98-107); Estimated GFR (African America >60 (>=60); Estimated GFR (Non-African Ame >60 (>=60); Globulin 3.6 g/dL; Glucose 104 mg/dL (74-106); Potassium 3.7 mmol/L (3.5-5.1); Sodium 139 mmol/L (136-145); Total Protein 6.9 g/dL (6.4-8.2)
[2024-02-28 12:13] LABS: Erythrocyte Sedimentation Rate 25 mm/hr (<=15)
[2024-02-29 16:10] LABS: Deamidated Gliadin Abs, IgA 5 units (0-19); Deamidated Gliadin Abs, IgG 2 units (0-19); Endomysial Antibody IgA Negative (Negative); Immunoglobulin A, Qn, Serum 183 mg/dL (90-386); t-Transglutaminase (tTG) IgA <2 U/mL (0-3); t-Transglutaminase (tTG) IgG <2 U/mL (0-5)
== END 2024-02-28 11:04 | disposition home or self-care (01) ==
LOC: LAB 11:04
PROVIDERS: PCP Family Medicine; Visit Provider Family Medicine
DX: R10.11 Right upper quadrant pain (principal); Z79.899 Other long term (current) drug therapy
CPT/HCPCS: 36415; 80053; 80307; 80326; 80331; 80334; 80337; 80338; 80341; 80344; 80346; 80348; 80353; 80354; 80355; 80357; 80358; 80359; 80360; 80361; 80364; 80365; 80366; 80367; 80368; 80370; 80371; 80372; 80373; 80377; 81001; 82150; 82570; 82784; 83690; 83992; 85025; 85652; 86140; 86231; 86258; 86364; 87086

== ENCOUNTER 2024-03-04 11:00 | Outpatient (OUT) | payer MEDICAID, SELFPAY ==
--- OUTSIDE RECORDS SUMMARY | 2024-03-04 11:25 | XMS_ITS | CCD ---
Author Organization [facility] Inform ion Partnership [facility] Care Team Providers Care Tipping Machine Operator Name Role Phone GREG, DR BEAN Primary Care Unavailable SHAHIDA, DR VENKATESH Bettencourt Attending Unavailyoav PINEDO, DR VENKATESH Bettencourt Consulting Unavailyoav PINEDO, DR VENKATESH Bettencourt Admitting Unavailabl e ERNESTINA, DR CATALINA Ashton Attending Unavailable ERNESTINA, DR CATALINA Ashton Consulting Unavailable ERNESTINA, DR CATALINA Ashton Admitting Unavailable GREG, DR BEAN Primary Care Unavailable Navjot Damian Consulting Unavailable Vikas Bryant MD Primary Care Provider [phone] ASHWINI PEACOCK Referring Unavailable YE ABARCA Admitting Unavailable PARINJA, ARISTIDES Consulting Unavailable SRUTHI ALDRIDGE Attending Unavailable VIKAS BRYANT Primary Care Unavailable GIULIA SUNSHINE Attending Unavailable MARLENE, ARISTIDES Referring Unavailable VIKAS BRYANT Primary Care Unavailable CHER, BEBETO S Consulting Unavailable GIULIA SUNSHINE Admitting Unavailable NICOJA, ARISTIDES Consulting Unavailable VIKAS BRYANT Primary Care Unavailable LISANDRA OSHEA Attending Unavailable VIKAS BRYANT Primary Care Unavailable LISANDRA OSHEA Attending Unavailable LISANDRA OSHEA Referring Unavailable VIKAS BRYANT Primary Care Unavailable Allergies Allergy Classification Reported Allergen(s) Allergy Type Date of Onset Reaction(s) Facility Pollen (1 source) Bee pollen Substance Allergy [facility] Repository (3 sources) Insect Extract Allergy Skin Test Propensity to adverse reactions to drug 8 [facility] (1 source) Ciprofloxacin; Translations: [CIPROFLOXACIN] Drug Allergy 3 [facility] Repository Medications Current Medications Medication Drug Class(es) Dates Sig (Normalized) Sig (Original) chlorhexidine gluconate 1.2 mg/ml mouthwash (1 source) Start: 10-30-2022 End: 08-14-2022 take 15 mL by mouth [...] biological substances, accidental (unintentional), initial encounter] Onset: 08-28-2022 Episodic Sprains and strains (1 source) Sprain [...] Range Facility CBC AND AUTO DIFFon 01-12-20 ABSOLUTE BASOPHIL 0.0 X10E9/L Normal 0.0-0.2 [facility] Comment on above: Performed By: #### 1 9123-9, CBCA, 3040-3, CMP #### [facility] ([id number]) [address] [place] [address] 86215 ABSOLUTE NEUTROPHIL 3.9 X10E9/L Normal 1.5-6.6 [facility] Comment on above: Performed By: #### 1 9123-9, CBCA, 3040-3, CMP #### [facility] ([id number]) [address] [place] [address] 32074 Basophils/100 WBC (Bld) 0.2 % Normal [facility] Comment on above: Performed By: #### 1 9123-9, CBCA, 3040-3, CMP #### [facility] ([id number]) [address] [place] [address] 31882 Eosinophils (Bld) [#/Vol] 0.1 10*3/uL Normal 0.0-0.4 [facility] Comment on above: Performed By: #### 1 91-9, CBCA, 3040-3, CMP #### [facility] ([id number]) [address] [place] [address] 44341 Eosinophils/100 WBC (Bld) 0.9 % Normal [facility] Comment on above: Performed By: #### 1 91-9, CBCA, 3039-3, CMP #### [facility] ([id number]) [address] [place] [address] 99175 Erythrocyte distribution width (RBC) [Ratio] 13.9 % Normal 11.5-15.0 [facility] Comment on above: Performed By: #### 1 9123-9, CBCA, 0-3, CMP #### [facility] ([id number]) [address] [place] [address] 97701 Hematocrit (Bld) [Volume fraction] 34.8 % Low 39-49 [facility] Comment on above: Performed By: #### 1 9123-9, CBCA, 0-3, CMP #### [facility] ([id number]) [address] [place] [address] 87046 Hemoglobin (Bld) [Mass/Vol] 12.4 g/dL Low 13.0-17.0 [facility] Comment on above: Performed By: #### 1 9123-9, CBCA, 3040-3, CMP #### [facility] ([id number]) [address] [place] [address] 91623 Lymphocytes (Bld) [#/Vol] 1.3 10*3/uL Normal 1.0-3.5 [facility] Comment on above: Performed By: #### 1 9123-9, CBCA, 3040-3, CMP #### [facility] ([id number]) [address] [place] [address] 37551 Lymphocytes/100 WBC (Bld) 22.0 % Normal [facility] Comment on above: Performed By: #### 1 91-9, CBCA, 3039-3, CMP #### [facility] ([id number]) [address] [place] [address] 35217 MCH (RBC) [Entitic mass] 33.2 pg Normal 27-34 [facility] Comment on above: Performed By: #### 1 91-9, CBCA, 3040-3, CMP #### [facility] ([id number]) [address] [place] [address] 93608 MCHC (RBC) [Mass/Vol] 35.5 g/dL Normal 32-36 [facility] Comment on above: Performed By: #### 1 9123-9, CBCA, 3040-3, CMP #### [facility] ([id number]) [address] [place] [address] 25013 MCV (RBC) [Entitic vol] 93 fL Normal 80-100 [facility] Comment on above: Performed By: #### 1 9123-9, CBCA, 3039-3, CMP #### [facility] ([id number]) [address] [place] [address] 55901 Monocytes (Bld) [#/Vol] 0.6 10*3/uL Normal 0-0.9 [facility] Comment on above: Performed By: #### 1 91-9, CBCA, 3040-3, CMP #### [facility] ([id number]) [address] [place] [address] 13585 Monocytes/100 WBC (Bld) 9.6 % Normal [facility] Comment on above: Performed By: #### 1 9123-9, CBCA, 3040-3, CMP #### [facility] ([id number]) [address] [place] [address] 15800 Neutrophils/100 WBC (Bld) 67.3 % Normal [facility] Comment on above: Performed By: #### 1 9123-9, CBCA, 3040-3, CMP #### [facility] ([id number]) [address] [place] [address] 68249 Platelet mean volume (Bld) [Entitic vol] 7.9 fL Normal 7-12 [facility] Comment on above: Performed By: #### 1 9123-9, CBCA, 3040-3, CMP #### [facility] ([id number]) [address] [place] [address] 28139 Platelets (Bld) [#/Vol] 263 10*3/uL Normal 150-450 [facility] Comment on above: Performed By: #### 1 9123-9, CBCA, 3040-3, CMP #### [facility] ([id number]) [address] [place] [address] 79377 RBC COUNT 3.73 X10E12/L Low 4.10-5.70 [facility] Comment on above: Performed By: #### 1 9123-9, CBCA, 3040-3, CMP #### [facility] ([id number]) [address] [place] [address] 85122 WBC (Bld) [#/Vol] 5.8 10*3/uL Normal 4.0-11.0 [facility] Comment on above: Performed By: #### 1 9123-9, CBCA, 3040-3, CMP #### [facility] ([id number]) [address] [place] [address] 63528 COMPREHENSIVE METABOLIC PANE David 01-12-2024 Albumin [Mass/Vol] 4.0 g/dL Normal 3.2-5.3 [facility] Comment on above: Performed By: #### 1 9123-9, CBCA, 3040-3, CMP #### [facility] ([id number]) [address] [place] [address] 14710 ALP [Catalytic activity/Vol] 39 U/L Normal 39-130 [facility] Comment on above: Performed By: #### 1 23-9, CBCA, 3040-3, CMP #### [facility] ([id number]) [address] [place] [address] 19840 ALT [Catalytic activity/Vol] 31 U/L Normal 0-40 [facility] Comment on above: Performed By: #### 1 91-9, CBCA, 3040-3, CMP #### [facility] ([id number]) [address] [place] [address] 90168 Anion gap [Moles/Vol] 2 mmol/L Low 5-15 [facility] Comment on above: Performed By: #### 1 9123-9, CBCA, 3040-3, CMP #### [facility] ([id number]) [address] [place] [address] 57579 AST [Catalytic activity/Vol] 24 U/L Normal 0-41 [facility] Comment on above: Performed By: #### 1 9123-9, CBCA, 3040-3, CMP #### [facility] ([id number]) [address] [place] [address] 12406 Bilirubin [Mass/Vol] 0.7 mg/dL Normal 0.3-1.2 [facility] Comment on above: Performed By: #### 1 9123-9, CBCA, 3040-3, CMP #### [facility] ([id number]) [address] [place] [address] 15456 Calcium [Mass/Vol] 8.9 mg/dL Normal 8.5-10.5 [facility] Comment on above: Performed By: #### 1 9123-9, CBCA, 3040-3, CMP #### [facility] ([id number]) [address] [place] [address] 26666 Chloride [Moles/Vol] 111 mmol/L High 98-109 [facility] Comment on above: Performed By: #### 1 9122-9, CBCA, 3040-3, CMP #### [facility] ([id number]) [address] [place] [address] 46877 CO2 [Moles/Vol] 28 mmol/L Normal 22-32 [facility] Comment on above: Performed By: #### 1 91-9, CBCA, 3040-3, CMP #### [facility] ([id number]) [address] [place] [address] 90034 Creatinine [Mass/Vol] 1.02 mg/dL Normal 0.70-1.20 [facility] Comment on above: Result Comment: METH OD TRACEABLE TO IDMS STANDARD Performed By: #### 1 9123-9, CBCA, 3040-3, CMP #### [facility] ([id number]) [address] [place] [address] 46091 eGFR (CKD-EPI) NON-RACE DEPENDENT >90 Normal >59 [facility] Comment on above: Result Comment: Reported eGFR is based on the CKD-EPI 2021 equation that does not use a race coefficient. Performed By: #### 1 9123-9, CBCA, 3040-3, CMP #### [facility] ([id number]) [address] [place] [address] 33141 Glucose [Mass/Vol] 99 mg/dL Normal 65-99 [facility] Comment on above: Performed By: #### 1 9123-9, CBCA, 3040-3, CMP #### [facility] ([id number]) [address] [place] [address] 15663 Potassium [Moles/Vol] 3.9 mmol/L Normal 3.5-5.0 [facility] Comment on above: Performed By: #### 1 9123-9, CBCA, 3040-3, CMP #### [facility] ([id number]) [address] [place] [address] 09810 Protein [Mass/Vol] 6.7 g/dL Normal 6.0-8.0 [facility] Comment on above: Performed By: #### 1 9123-9, CBCA, 3040-3, CMP #### [facility] ([id number]) [address] [place] [address] 26492 Sodium [Moles/Vol] 141 mmol/L Normal 134-146 [facility] Comment on above: Performed By: #### 1 9123-9, CBCA, 3040-3, CMP #### [facility] ([id number]) [address] [place] [address] 16509 Urea nitrogen [Mass/Vol] 24 mg/dL High 5-23 [facility] Comment on above: Performed By: #### 1 9123-9, CBCA, 3040-3, CMP #### [facility] ([id number]) [address] [place] [address] 53563 LIPASEon 01-12-2024 Lipase [Catalytic activity/Vol] 30 U/L Normal 17-40 [facility] Comment on above: Performed By: #### 1 9123-9, CBCA, 3040-3, CMP #### [facility] ([id number]) [address] [place] [address] 71646 MAGNESIUMon 01-12-2024 Magnesium [Mass/Vol] 1.8 mg/dL Normal 1.8-2.6 [facility] Comment on above: Performed By: #### 1 9123-9, CBCA, 3040-3, CMP #### [facility] ([id number]) [address] [facility] [place] [address] XR CHEST 1 VWon 01-12-2024 XR CHEST [...] MD on 01/12/2024 4:37 AM Normal [facility] Thyroxine, Freeon 11-06-2023 Thyroxine, Free 1.8 ng/dL High 0.9-1.7 [facility] Comment on above: Performed By: #### T SH #### [facility] [address] [place] [address] [place] [address] Paint Striping Machine Operator: Mohinder Rodriguez MD #### FT4 #### [address] [address] Paint Striping Machine Operator: Stephan Darby MD APTTon 11-05-2023 aPTT Coag (Bld) [Time] 24.7 s Low 26.8-34.8 [facility] Comment on above: Result Comment: IV Heparin Therapy Range: 62.0-94.0 Performed By: #### U MICAO, UAX #### [facility] [address] [place] [address] [place] [address] Paint Striping Machine Operator: Mohinder Rodriguez MD CBC with Diffon 11-05-2023 Abs. Basophil 0.05 k/uL Normal 0.00-0.20 [facility] Comment on above: Performed By: #### C P, PTT, PT, CDP, MG, DIME, TROPI #### [facility] [address] [place] [address] [place] [address] Paint Striping Machine Operator: Mohinder Rodriguez MD Abs. Eosinophil <0.03 Normal 0.00-0.44 [facility] Comment on above: Performed By: #### C P, PTT, PT, CDP, MG, DIME, TROPI #### [facility] [address] [place] [address] Paint Striping Machine Operator: Mohinder Rodriguez MD Abs.Imm.Granulocyt e 0.03 k/uL Normal 0.00-0.30 [facility] Comment on above: Performed By: #### C P, PTT, PT, CDP, MG, DIME, TROPI #### [address] [place] [address] Paint Striping Machine Operator: Mohinder Rodriguez MD Abs.Neutrophil (Seg) 7.19 k/uL Normal 1.50-8.10 [facility] Comment on above: Performed By: #### C P, PTT, PT, CDP, MG, DIME, TROPI #### [address] [place], [place] [address] Paint Striping Machine Operator: Mohinder Rodriguez MD Basophils/100 WBC (Bld) 1 % Normal 0-2 [facility] Comment on above: Performed By: #### C P, PTT, PT, CDP, MG, DIME, TROPI #### [address] [place], [facility]83 Paint Striping Machine Operator: Mohinder Rodriguez MD Eosinophils/100 WBC (Bld) 0 % Low 1-4 [facility] Comment on above: Performed By: #### C P, PTT, PT, CDP, MG, DIME, TROPI #### [address] [place] [address] Paint Striping Machine Operator: Mohinder Rodriguez MD Erythrocyte distribution width (RBC) [Ratio] 11.9 % Normal 11.8-14.4 [facility] Comment on above: Performed By: #### C P, PTT, PT, CDP, MG, DIME, TROPI #### [facility] [address] [place], [place] [address] Paint Striping Machine Operator: Mohinder Rodriguez MD Hematocrit (Bld) [Volume fraction] 43.8 % Normal 40.7-50.3 [facility] Comment on above: Performed By: #### C P, PTT, PT, CDP, MG, DIME, TROPI #### [facility] [address] [place], [facility]83 Paint Striping Machine Operator: Mohinder Rodriguez MD Hemoglobin (Bld) [Mass/Vol] 15.1 g/dL Normal 13.0-17.0 [facility] Comment on above: Performed By: #### C P, PTT, PT, CDP, MG, DIME, TROPI #### [address] [place], [facility]83 Paint Striping Machine Operator: Mohinder Rodriguez MD Immature granulocytes/100 WBC (Bld) 0 % Normal 0 [facility] Comment on above: Performed By: #### C P, PTT, PT, CDP, MG, DIME, TROPI #### [address] [place], [facility]83 Paint Striping Machine Operator: Mohinder Rodriguez MD Lymphocytes (Bld) [#/Vol] 1.58 10*3/uL Normal 1.10-3.70 [facility] Comment on above: Performed By: #### C P, PTT, PT, CDP, MG, DIME, TROPI #### [facility] [address] [place], [facility]83 Paint Striping Machine Operator: Mohinder Rodriguez MD Lymphocytes/100 WBC (Bld) 16 % Low 24-43 [facility] Comment on above: Performed By: #### C P, PTT, PT, CDP, MG, DIME, TROPI #### [facility] [address] [place] [address] Paint Striping Machine Operator: Mohinder Rodriguez MD MCH (RBC) [Entitic mass] 32.5 pg Normal 25.2-33.5 [facility] Comment on above: Performed By: #### C P, PTT, PT, CDP, MG, DIME, TROPI #### [facility] [address] [place], [facility]83 Paint Striping Machine Operator: Mohinder Rodriguez MD MCHC (RBC) [Mass/Vol] 34.5 g/dL Normal 28.4-34.8 [facility] Comment on above: Performed By: #### C P, PTT, PT, CDP, MG, DIME, TROPI #### [facility] [address] [place], [place] [address] Paint Striping Machine Operator: Mohinder Rodriguez MD MCV (RBC) [Entitic vol] 94.2 fL Normal 82.6-102.9 [facility] Comment on above: Performed By: #### C P, PTT, PT, CDP, MG, DIME, TROPI #### [address] [place], [place] [address] Paint Striping Machine Operator: Mohinder Rodriguez MD Monocytes (Bld) [#/Vol] 1.15 10*3/uL Normal 0.10-1.20 [facility] Comment on above: Performed By: #### C P, PTT, PT, CDP, MG, DIME, TROPI #### [address] [place], [place] [address] Paint Striping Machine Operator: Mohinder Rodriguez MD Monocytes/100 WBC (Bld) 12 % Normal 3-12 [facility] Comment on above: Performed By: #### C P, PTT, PT, CDP, MG, DIME, TROPI #### [address] [place], [facility]83 Paint Striping Machine Operator: Mohinder Rodriguez MD Neutrophil (Seg) 71 % High 36-65 [facility] Comment on above: Performed By: #### C P, PTT, PT, CDP, MG, DIME, TROPI #### [facility] [address] [place], [place] [address] Paint Striping Machine Operator: Mohinder Rodriguez MD NRBC Automated 0.0 per 100 WBC Normal 0.0 [facility] Comment on above: Performed By: #### C P, PTT, PT, CDP, MG, DIME, TROPI #### [facility] [address] [place], [facility]83 Paint Striping Machine Operator: Mohinder Rodriguez MD Platelet mean volume (Bld) [Entitic vol] 9.9 fL Normal 8.1-13.5 [facility] Comment on above: Performed By: #### C P, PTT, PT, CDP, MG, DIME, TROPI #### [address] [place], [facility]83 Paint Striping Machine Operator: Mohinder Rodriguez MD Platelets (Bld) [#/Vol] 229 10*3/uL Normal 138-453 [facility] Comment on above: Performed By: #### C P, PTT, PT, CDP, MG, DIME, TROPI #### [address] [place], [facility]83 Paint Striping Machine Operator: Mohinder Rodriguez MD RBC (Bld) [#/Vol] 4.65 10*6/uL Normal 4.21-5.77 [facility] Comment on above: Performed By: #### C P, PTT, PT, CDP, MG, DIME, TROPI #### [address] [place], [facility]83 Paint Striping Machine Operator: Mohinder Rodriguez MD WBC (Bld) [#/Vol] 10.0 10*3/uL Normal 3.5-11.3 [facility] Comment on above: Performed By: #### C P, PTT, PT, CDP, MG, DIME, TROPI #### [facility] [address] [place] [address] Paint Striping Machine Operator: Mohinder Rodriguez MD CT ABDOMEN PELVIS W [...] Yoseph Putnam DO 11/05/23 Final result Normal [facility] CT CHEST PULMONARY EMBOLISM W CONTRASTon [...] Yoseph Putnam DO 11/05/23 Final result Normal [facility] Comp Metabolic Profon 2023 Calcium [Mass/Vol] 9.4 mg/dL Normal 8.6-10.4 [facility] Comment on above: Performed By: #### U MICAO, UAX #### [facility] [address] [place] [address] Paint Striping Machine Operator: Mohinder Rodriguez MD Albumin [Mass/Vol] 4.6 g/dL Normal 3.5-5.2 [facility] Comment on above: Performed By: #### U MICAO, UAX #### [facility] [address] [place], [place] [address] Paint Striping Machine Operator: Mohinder Rodriguez MD Albumin/Glob Ratio 1.6 Normal 1.0-2.5 [facility] Comment on above: Performed By: #### U MICAO, UAX #### [facility] [address] [place], [place] [address] Paint Striping Machine Operator: Mohinder Rodriguez MD Alkaline Phos 44 U/L Normal 40-129 [facility] Comment on above: Performed By: #### U MICAO, UAX #### [facility] [address] [place] [address] Paint Striping Machine Operator: Mohinder Rodriguez MD ALT [Catalytic activity/Vol] 88 U/L High 5-41 [facility] Comment on above: Performed By: #### U MICAO, UAX #### [facility] [address] [place] [address] Paint Striping Machine Operator: Mohinder Rodriguez MD Anion gap [Moles/Vol] 11 mmol/L Normal 9-17 [facility] Comment on above: Performed By: #### U MICAO, UAX #### [facility] [address] [place] [address] Paint Striping Machine Operator: Mohinder Rodriguez MD AST [Catalytic activity/Vol] 91 U/L High <40 [facility] Comment on above: Performed By: #### U MICAO, UAX #### [facility] [address] [place], [place] [address] Paint Striping Machine Operator: Mohinder Rodriguez MD Bilirubin [Mass/Vol] 0.3 mg/dL Normal 0.3-1.2 [facility] Comment on above: Performed By: #### U MICAO, UAX #### [facility] [address] [place], [place] [address]83 Paint Striping Machine Operator: Mohinder Rodriguez MD BUN/CRE Ratio 23 High 9-20 [facility] Comment on above: Performed By: #### U MICAO, UAX #### [facility] [address] [place], [place] [address] Paint Striping Machine Operator: Mohinder Rodriguez MD Chloride [Moles/Vol] 98 mmol/L Normal 98-107 [facility] Comment on above: Performed By: #### U MICAO, UAX #### [facility] [address] [place], [place] [address]683 Paint Striping Machine Operator: Mohinder Rodriguez MD CO2 [Moles/Vol] 28 mmol/L Normal 20-31 [facility] Comment on above: Performed By: #### U MICAO, UAX #### [facility] [address] [place] [address] Paint Striping Machine Operator: Mohinder Rodriguez MD Creatinine [Mass/Vol] 0.8 mg/dL Normal 0.7-1.2 [facility] Comment on above: Performed By: #### U MICAO, UAX #### [facility] [address] [place] [address] Paint Striping Machine Operator: Mohinder Rodriguez MD GFR/1.73 sq M.predicted among non-blacks MDRD (S/P/Bld) [Vol rate/Area] mL/min/{1.73_m2} Normal >60 [facility] Comment on above: Result Comment: These [...] affects renal tubular secretion. Performed By: #### Larisa CRISTINA UAX #### [facility] [address] [place] [address] [place] [address] Paint Striping Machine Operator: Mohinder Rodriguez MD Glucose [Mass/Vol] 94 mg/dL Normal 70-99 [facility] Comment on above: Performed By: #### Larisa CRISTINA UAX #### [address] [place] [address] Paint Striping Machine Operator: Mohinder Rodriguez MD Potassium [Moles/Vol] 3.3 mmol/L Low 3.7-5.3 [facility] Comment on above: Performed By: #### Larisa CRISTINA UAX #### [facility] [address] [place] [address] Paint Striping Machine Operator: Mohinder Rodriguez MD Protein [Mass/Vol] 7.4 g/dL Normal 6.4-8.3 [facility] Comment on above: Performed By: #### U IBETH UAX #### [address] [place] [address] Paint Striping Machine Operator: Mohinder Rodriguez MD Sodium [Moles/Vol] 137 mmol/L Normal 135-144 [facility] Comment on above: Performed By: #### U IBETH, UAX #### [facility] [address] [place] [address] Paint Striping Machine Operator: Mohinder Rodriguez MD Urea nitrogen [Mass/Vol] 18 mg/dL Normal 6-20 [facility] Comment on above: Performed By: #### U IBETH, UAX #### [facility] [address] [place] [address] Paint Striping Machine Operator: Mohinder Rodriguez MD D-Dimer Teston 11-05-2023 D-Dimer Test 0.58 ug/mL FEU Normal 0.00-0.59 [facility] Comment on above: Result Comment: [...] patients with distal DVT. Performed By: #### U IBETH UAX #### [facility] [address] [place] [address] Paint Striping Machine Operator: Mohinder Rodriguez MD Magnesiumon 11-05-2023 Magnesium [Mass/Vol] 1.8 mg/dL Normal 1.6-2.6 [facility] Comment on above: Performed By: #### U MICAO, UAX #### [address] [place], [place] [id number] Paint Striping Machine Operator: Mohinder Rodriguez MD Occ Bld, Fecal Scrnon 2023 Occult Blood 1 Negative Normal NEG [facility] Comment on above: Performed By: #### O BS #### [address] [place], [facility]83 [employer]: Mohinder Rodriguez MD PTon 11-05-2023 INR Coag (PPP) [Relative time] 0.9 {INR} Normal [facility] Comment on above: Result Comment: Therapeutic Range: Moderate Anticoagulant Intensity: INR = 2.0-3.0 High Anticoagulant Intensity: INR = 2.5-3.5 Performed By: #### C P, PTT, PT, CDP, MG, DIME, TROPI #### [address] [place], [facility]83 [employer] Operator: Mohinder Rodriguez MD PT Coag (PPP) [Time] 12.5 s Normal 11.9-14.8 [facility] Comment on above: Performed By: #### C P, PTT, PT, CDP, MG, DIME, TROPI #### [address] [place], [facility]83 [employer] Operator: Mohinder Rodriguez MD Thyroid Stim. Horm.on 2023 Thyroid Stim. Horm. 1.17 uIU/mL Normal 0.30-5.00 [facility] Comment on above: Performed By: #### T SH #### [address] [place] [address] [employer] Operator: Mohinder Rodriguez MD #### FT4 #### [address] [id number] [employer] Operator: Stepahn Darby MD Troponinon 11-05-2023 Troponin, High Sens 8 ng/L Normal 0-22 [facility] Comment on above: Result Comment: High Sensitivity Troponin values cannot be compared with other Troponin methodologies. Performed By: #### U MICAO, UAX #### [facility] [address] [place], [place] [id number] [employer] Operator: Mohinder Rodriguez MD UA w/Reflex Cultureon 2023 Bilirubin, SemiQt,Ur Negative Normal NEG [facility] Comment on above: Performed By: #### U MICAO, UAX #### [facility] [address] [place] [address] [employer] Operator: Mohinder Rodriguez MD Blood, Urine Negative Normal NEG [facility] Comment on above: Performed By: #### U MICAO, UAX #### [facility] [address] [place], [place] [id number] [employer] Operator: Mohinder Rodriguez MD Clarity (U) Clear Normal CLEAR [facility] Comment on above: Performed By: #### U MICAO, UAX #### [facility] [address] [place] [address] [employer] Operator: Mohinder Rodriguez MD Color (U) Yellow Normal YEL [facility] Comment on above: Performed By: #### U MICAO, UAX #### [facility] [address] [place] [address] [employer] Operator: Mohinder Rodriguez MD Glucose Ql (U) Negative Normal NEG [facility] Comment on above: Performed By: #### U MICAO, UAX #### [facility] [address] [place] [address] [employer] Operator: Mohinder Rodriguez MD Ketones Ql (U) 1+ mg/dL Abnormal NEG [facility] Comment on above: Performed By: #### U MICAO, UAX #### [facility] [address] [place], [place] [phone] [employer] Operator: Mohinder Rodriguez MD Leukocyte esterase Test strip Ql (U) Negative Normal NEG [facility] Comment on above: Performed By: #### U MICAO, UAX #### [facility] [address] [place] [address] Dr[place], [place] [phone] [employer] Operator: Mohinder Rodriguez MD Nitrite,Ur Negative Normal NEG [facility] Comment on above: Performed By: #### U MICAO, UAX #### [facility] [address] [place] [address] Dr[place], [place] [id number] [employer] Operator: Mohinder Rodriguez MD PH,Ur 6.5 Normal 5.0-9.0 [facility] Comment on above: Performed By: #### U MICAO, UAX #### [address] [place], [place] [id number] [employer] Operator: Mohinder Rodriguez MD Protein Ql (U) Negative Normal NEG [facility] Comment on above: Performed By: #### U MICAO, UAX #### [address] [place], [place] [phone] [employer] Operator: Mohinder Rodriguez MD Spec. Leon,Ur <1.005 Low 1.010-1.020 [facility] Comment on above: Performed By: #### U MICAO, UAX #### [address] [place], [place] [phone] [employer] Operator: Mohinder Rodriguez MD Urobilinogen,Ur Normal Normal 0.0-1.0 [facility] Comment on above: Performed By: #### U MICAO, UAX #### [address] [place] [address] [employer] Operator: Mohinder Rodriguez MD Urinalysis,Microon 4 Bacteria 1+ Abnormal NONE [facility] Comment on above: Performed By: #### U MICAO, UAX #### [facility] [address] [place], [place] [phone] [employer] Operator: Mohinder Rodriguez MD Epithelial cells LM Ql (Urine sed) None Normal 0-5 [facility] Comment on above: Performed By: #### U MICAO, UAX #### [facility] [address] [place], [place] [address]83 [employer] Operator: Mohinder Rodriguez MD Mucus Strands TRACE Abnormal NONE [facility] Comment on above: Performed By: #### U MICAO, UAX #### [facility] [address] [place], [place] [address]897383 [employer] Operator: Mohinder oRdriguez MD Urine RBC's None Normal 0-2 [facility] Comment on above: Performed By: #### U MICAO, UAX #### [facility] [address] [place], [place] [address]883 [employer] Operator: Mohinder Rodriguez MD Urine WBC's 0 TO 2 Normal 0-[address] [place] [address] Comment on above: Performed By: #### U MICAO, UAX #### [facility] [address] [place] [address] [employer] Operator: Mohinder Rodriguez MD XR CHEST PORTABLEon 11-05-19 [...] by: Marc Paul IV, MD Signed by: Mrac Paul IV, MD 11/05/23 Final result Normal [facility] Comp Metabolic Profon 2021 Albumin [Mass/Vol] 3.4 g/dL Low 3.5-5.2 [facility] Comment on above: Performed By: #### C K, CP #### [facility] [address] [place] [address] [employer] Operator: Maximino Monzon DO Alkaline Phos 40 U/L Normal 40-129 [facility] Comment on above: Performed By: #### Milagros Britt, CP #### [facility] [address] [place] [address] [employer] Operator: Maximino Monzon DO ALT [Catalytic activity/Vol] 354 U/L High 5-41 [facility] Comment on above: Performed By: #### Milagros Britt, CP #### [facility] [address] [place] [address] [employer] Operator: Maximino Monzon DO Anion gap [Moles/Vol] 7 mmol/L Low 9-17 [facility] Comment on above: Performed By: #### Milagros Britt, CP #### [facility] [address] [place] [address] [employer] Operator: Maximino Monzon DO AST [Catalytic activity/Vol] 154 U/L High <40 [facility] Comment on above: Performed By: #### Milagros Britt, CP #### [facility] [address] [place] [address] [employer] Operator: Maximino Monzon DO Bilirubin [Mass/Vol] 0.4 mg/dL Normal 0.3-1.2 [facility] Comment on above: Performed By: #### Milagros Britt, CP #### [facility] [address] [place] [address] [employer] Operator: Maximino Monzon DO Calcium [Mass/Vol] 8.7 mg/dL Normal 8.6-10.4 [facility] Comment on above: Performed By: #### Milagros Britt, CP #### [facility] [address] [place] [address] [employer] Operator: Maximino Monzon DO Chloride [Moles/Vol] 105 mmol/L Normal 98-107 [facility] Comment on above: Performed By: #### Milagros Britt, CP #### [facility] [address] [facility] [place] [address] [employer] Operator: Maximino Monzon DO CO2 [Moles/Vol] 29 mmol/L Normal 20-31 [facility] Comment on above: Performed By: #### Milagros Britt, CP #### [facility] [address] [facility] [place] [address] [employer] Operator: Maximino Monzon DO Creatinine [Mass/Vol] 0.73 mg/dL Normal 0.70-1.20 [facility] Comment on above: Performed By: #### Milagros Britt, LEROY #### [facility] [place] [address] [employer] Operator: Maximino Monzon DO GFR/1.73 sq M.predicted among non-blacks MDRD (S/P/Bld) [Vol rate/Area] mL/min/{1.73_m2} Normal >60 [facility] Comment on above: Result Comment: Effective Jul [...] Performed By: #### Milagros Britt, CP #### [facility] [address] [facility] [place] [address] [employer] Operator: Maximino Monzon DO Glucose [Mass/Vol] 74 mg/dL Normal 70-99 [facility] Comment on above: Performed By: #### Milagros Britt, CP #### [facility] [address] [facility] [place] [address] [employer] Operator: Maximino Monzon DO Potassium [Moles/Vol] 4.7 mmol/L Normal 3.7-5.3 [facility] Comment on above: Performed By: #### Milagros Britt, CP #### [facility] [address] [facility] [place] [address] [employer] Operator: Maximino Monzon DO Protein [Mass/Vol] 5.8 g/dL Low 6.4-8.3 [facility] Comment on above: Performed By: #### Milagros Britt, CP #### [facility] [address] [place] [address] [employer] Operator: Maximino Monzon DO Sodium [Moles/Vol] 141 mmol/L Normal 135-144 [facility] Comment on above: Performed By: #### Milagros Britt, CP #### [facility] [address] [place] [address] [employer] Operator: Maximino Monzon DO Urea nitrogen [Mass/Vol] 9 mg/dL Normal 6-20 [facility] Comment on above: Performed By: #### Milagros Britt, CP #### [facility] [address] [place] [address]. [place] [address] [employer] Operator: Maximino Monzon DO Creatine Kinaseon 09-02-2022 CK [Catalytic activity/Vol] 1398 U/L High 39-308 [facility] Comment on above: Performed By: #### Milagros Britt, CP #### [facility] [place] [address] [employer] Operator: Maximino Monzon DO Cult, Bloodon 09-02-2022 Cult, Blood Specimen Description .BLOOD Special Requests R HNAD 13 ML Culture NO GROWTH 5 DAYS Report Status FINAL 09/02/2022 Normal [facility] Comment on above: Performed By: #### B CUL2 #### [address] [address] [employer] Striping Machine Operator: Stephan Darby MD Cult,Bloodon 09-02-2022 Cult,Blood Specimen Description .BLOOD Special Requests L HAND 13 ML Culture NO GROWTH 5 DAYS Report Status FINAL 09/02/2022 Normal [facility] Comment on above: Performed By: #### Larisa CRISTINA UAX #### [facility] [employer] [address] [place] [address] [employer] Operator: Stephan Darby MD Basic Metab w/rfx MGon 08-31 Anion gap [Moles/Vol] 6 mmol/L Low 9-17 [facility] Comment on above: Performed By: #### Larisa CRISTINA UAX #### [facility] [employer] [address] [place] [address] [employer] Operator: Stephan Darby MD Calcium [Mass/Vol] 8.1 mg/dL Low 8.6-10.4 [facility] Comment on above: Performed By: #### Larisa CRISTINA UAX #### [facility] [employer] [address] [place] [address] [employer] Operator: Stephan Darby MD Chloride [Moles/Vol] 110 mmol/L High 98-107 [facility] Comment on above: Performed By: #### U IBETH UAX #### [facility] [employer] [address] [place] [address] [employer] Operator: Stephan Darby MD CO2 [Moles/Vol] 23 mmol/L Normal 20-31 [facility] Comment on above: Performed By: #### U IBETH UAX #### [facility] [employer] [address] [place] [address] [employer] Operator: Stephan Darby MD Creatinine [Mass/Vol] 0.57 mg/dL Low 0.70-1.20 [facility] Comment on above: Performed By: #### U MICAO, UAX #### [facility] [employer] [address] [place] [address] [employer] Operator: Stephan Darby MD GFR/1.73 sq M.predicted among non-blacks MDRD (S/P/Bld) [Vol rate/Area] mL/min/{1.73_m2} Normal >60 [facility] Comment on above: Result Comment: [...] Performed By: #### U IBETH UAX #### [facility] [employer] [address] [place] [address] [employer] Operator: Stephan Darby MD Glucose [Mass/Vol] 101 mg/dL High 70-99 [facility] Comment on above: Performed By: #### U IBETH UAX #### [facility] [employer] [address] [place] [address] [employer] Operator: Stephan Darby MD Potassium [Moles/Vol] 3.9 mmol/L Normal 3.7-5.3 [facility] Comment on above: Performed By: #### U IBETH UAX #### [facility] [address] [place] [address] [employer] Operator: Stephan Darby MD Sodium [Moles/Vol] 139 mmol/L Normal 135-144 [facility] Comment on above: Performed By: #### U IBETH, UAX #### [facility] [employer] [address] [place] [address] [employer] Operator: Stephan Darby MD Urea nitrogen [Mass/Vol] 8 mg/dL Normal 6-20 [facility] Comment on above: Performed By: #### U IBETH, UAX #### [facility] [employer] [address] [place] [address] [employer] Operator: Stephan Darby MD CBC with Diffon 08-31-2022 Abs. Basophil 0.04 k/uL Normal 0.00-0.20 [facility] Comment on above: Performed By: #### U IBETH, UAX #### [facility] [employer] [address] [place] [address] [employer] Operator: Stephan Darby MD Abs.Imm.Granulocyt e <0.03 Normal 0.00-0.30 [facility] Comment on above: Performed By: #### U IBETH UAX #### [facility] [employer] [address] [place] [address] [employer] Operator: Stephan Darby MD Abs.Neutrophil (Seg) 3.68 k/uL Normal 1.50-8.10 [facility] Comment on above: Performed By: #### U IBETH UAX #### [facility] [employer] [address] [place] [address] [employer] Operator: Stephan Darby MD Basophils/100 WBC (Bld) 1 % Normal 0-2 [facility] Comment on above: Performed By: #### U IBETH UAX #### [facility] [employer] [address] [place] [address] [employer] Operator: Stephan Darby MD Eosinophils (Bld) [#/Vol] 0.06 10*3/uL Normal 0.00-0.44 [facility] Comment on above: Performed By: #### U IBETH, UAX #### [facility] [employer] [address] [place] [address] [employer] Operator: Stephan Darby MD Eosinophils/100 WBC (Bld) 1 % Normal 1-4 [facility] Comment on above: Performed By: #### U IBETH UAX #### [employer] [address] [place] [address] [employer] Operator: Stephan Darby MD Erythrocyte distribution width (RBC) [Ratio] 12.8 % Normal 11.8-14.4 [facility] Comment on above: Performed By: #### U IBETH, UAX #### [facility] [employer] [address] [place] [address] [employer] Operator: Stephan Darby MD Hematocrit (Bld) [Volume fraction] 38.7 % Low 40.7-50.3 [facility] Comment on above: Performed By: #### U IBETH UAX #### [facility] [employer] [address] [place] [address] [employer] Operator: Stephan Darby MD Hemoglobin (Bld) [Mass/Vol] 12.7 g/dL Low 13.0-17.0 [facility] Comment on above: Performed By: #### U IBETH, UAX #### [facility] [employer] [address] [place] [address] [employer] Operator: Stephan Darby MD Immature granulocytes/100 WBC (Bld) 0 % Normal 0 [facility] Comment on above: Performed By: #### U IBETH, UAX #### [facility] [employer] [address] [place] [address] [employer] Operator: Stephan Darby MD Lymphocytes (Bld) [#/Vol] 1.08 10*3/uL Low 1.10-3.70 [facility] Comment on above: Performed By: #### U IBETH, UAX #### [facility] [employer] [address] [place] [address] [employer] Operator: Stephan Darby MD Lymphocytes/100 WBC (Bld) 20 % Low 24-43 [facility] Comment on above: Performed By: #### U IBETH, UAX #### [facility] [employer] [address] [place] [address] [employer] Operator: Stephan Darby MD MCH (RBC) [Entitic mass] 32.1 pg Normal 25.2-33.5 [facility] Comment on above: Performed By: #### U MICAO, UAX #### [address] [address] [employer] Operator: Stephan Darby MD MCHC (RBC) [Mass/Vol] 32.8 g/dL Normal 28.4-34.8 [facility] Comment on above: Performed By: #### U MICAO, UAX #### [address] [address] [employer] Operator: Stephan Darby MD MCV (RBC) [Entitic vol] 97.7 fL Normal 82.6-102.9 [facility] Comment on above: Performed By: #### U IBETH, UAX #### [address] [address] [employer] Operator: Stephan Darby MD Monocytes (Bld) [#/Vol] 0.60 10*3/uL Normal 0.10-1.20 [facility] Comment on above: Performed By: #### U MICAO, UAX #### [address] [address] [employer] Operator: Stephan Darby MD Monocytes/100 WBC (Bld) 11 % Normal 3-12 [facility] Comment on above: Performed By: #### U MICAO, UAX #### [facility] [employer] [address] [place] [address] [employer] Operator: Stephan Darby MD Neutrophil (Seg) 67 % High 36-65 [facility] Comment on above: Performed By: #### U MICAO, UAX #### [address] [address] [employer] Operator: Stephan Darby MD NRBC Automated 0.0 per 100 WBC Normal 0.0 [facility] Comment on above: Performed By: #### U IBTEH, UAX #### [address] [address] [employer] Operator: Stephan Darby MD Platelet mean volume (Bld) [Entitic vol] 11.1 fL Normal 8.1-13.5 [facility] Comment on above: Performed By: #### U NOHEMYO, UAX #### [facility] [employer] [address] [place] [address] [employer] Operator: Stephan Darby MD Platelets (Bld) [#/Vol] 164 10*3/uL Normal 138-453 [facility] Comment on above: Performed By: #### U IBETH, UAX #### [address] [address] [employer] Operator: Stephan Darby MD RBC (Bld) [#/Vol] 3.96 10*6/uL Low 4.21-5.77 [facility] Comment on above: Performed By: #### U IBETH, UAX #### [address] [address] [employer] Operator: Stephan Darby MD WBC (Bld) [#/Vol] 5.5 10*3/uL Normal 3.5-11.3 [facility] Comment on above: Performed By: #### U MICAO, UAX #### [address] [address] [employer] Operator: Stephan Darby MD Creatine Kinaseon 08-31-2022 CK [Catalytic activity/Vol] 3882 U/L High 39-308 [facility] Comment on above: Performed By: #### C DP, LACTIC, BMPX, TAYLOR, CK #### [address] [address] [employer] Operator: Stephan Darby MD Myoglobinon 08-31-2022 Myoglobin [Mass/Vol] 64 ng/mL Normal 28-72 [facility] Comment on above: Performed By: #### C DP, LACTIC, BMPX, TAYLOR, CK #### [address] [address] [employer] Operator: Stephan Darby MD Basic Metab w/rfx MGon 08-30 Anion gap [Moles/Vol] 8 mmol/L Low 9-17 [facility] Comment on above: Performed By: #### C DP, LACTIC, BMPX, TAYLOR, CK #### [address] [address] [employer] Operator: Stephan Darby MD Calcium [Mass/Vol] 7.5 mg/dL Low 8.6-10.4 [facility] Comment on above: Performed By: #### C DP, LACTIC, BMPX, TAYLOR, CK #### [address] [address] [employer] Operator: Stephan Darby MD Chloride [Moles/Vol] 110 mmol/L High 98-107 [facility] Comment on above: Performed By: #### C DP, LACTIC, BMPX, TAYLOR, CK #### [address] [phone] [employer] Operator: Stephan Darby MD CO2 [Moles/Vol] 22 mmol/L Normal 20-31 [facility] Comment on above: Performed By: #### C DP, LACTIC, BMPX, TAYLOR, CK #### [address] [address] [employer] Operator: Stephan Darby MD Creatinine [Mass/Vol] 0.57 mg/dL Low 0.70-1.20 [facility] Comment on above: Performed By: #### C DP, LACTIC, BMPX, TAYLOR, CK #### [address] [address] [employer] Operator: Stephan Darby MD GFR/1.73 sq M.predicted among non-blacks MDRD (S/P/Bld) [Vol rate/Area] mL/min/{1.73_m2} Normal >60 [facility] Comment on above: Result Comment: [...] DP, LACTIC, BMPX, TAYLOR, CK #### [address] [address] [employer] Operator: Stephan Darby MD Glucose [Mass/Vol] 75 mg/dL Normal 70-99 [facility] Comment on above: Performed By: #### C DP, LACTIC, BMPX, TAYLOR, CK #### [address] [address] [employer] Operator: Stephan Darby MD Potassium [Moles/Vol] 4.0 mmol/L Normal 3.7-5.3 [facility] Comment on above: Performed By: #### C DP, LACTIC, BMPX, TAYLOR, CK #### [address] [address] [employer] Operator: Stephan Darby MD Sodium [Moles/Vol] 140 mmol/L Normal 135-144 [facility] Comment on above: Performed By: #### C DP, LACTIC, BMPX, TAYLOR, CK #### [address] [address] [employer] Operator: Stephan Darby MD Urea nitrogen [Mass/Vol] 13 mg/dL Normal 6-20 [facility] Comment on above: Performed By: #### C DP, LACTIC, BMPX, TAYLOR, CK #### [place] [address] [employer]: Stephan Darby MD CBC with Diffon 08-30-2022 Abs. Basophil 0.05 k/uL Normal 0.00-0.20 [facility] Comment on above: Performed By: #### C DP, LACTIC, BMPX, TAYLOR, CK #### [place] [address] [employer]: Stephan Darby MD Abs.Imm.Granulocyt e <0.03 Normal 0.00-0.30 [facility] Comment on above: Performed By: #### C DP, LACTIC, BMPX, TAYLOR, CK #### [place] [address] [employer]: Stephan Darby MD Abs.Neutrophil (Seg) 3.71 k/uL Normal 1.50-8.10 [facility] Comment on above: Performed By: #### C DP, LACTIC, BMPX, TAYLOR, CK #### [place] [address] [employer]: Stephan Darby MD Basophils/100 WBC (Bld) 1 % Normal 0-2 [facility] Comment on above: Performed By: #### C DP, LACTIC, BMPX, TAYLOR, CK #### [place] [address] [employer]: Stephan Darby MD Eosinophils (Bld) [#/Vol] 0.04 10*3/uL Normal 0.00-0.44 [facility] Comment on above: Performed By: #### C DP, LACTIC, BMPX, TAYLOR, CK #### [place] [address] [employer]: Stephan Darby MD Eosinophils/100 WBC (Bld) 1 % Normal 1-4 [facility] Comment on above: Performed By: #### C DP, LACTIC, BMPX, TAYLOR, CK #### [address] [address] [employer]: Stephan Darby MD Erythrocyte distribution width (RBC) [Ratio] 13.1 % Normal 11.8-14.4 [facility] Comment on above: Performed By: #### C DP, LACTIC, BMPX, TAYLOR, CK #### [address] [address] [employer]: Stephan Darby MD Hematocrit (Bld) [Volume fraction] 36.9 % Low 40.7-50.3 [facility] Comment on above: Performed By: #### C DP, LACTIC, BMPX, TAYLOR, CK #### [address] [address] [employer]: Stephan Darby MD Hemoglobin (Bld) [Mass/Vol] 11.9 g/dL Low 13.0-17.0 [facility] Comment on above: Performed By: #### C DP, LACTIC, BMPX, TAYLOR, CK #### [address] [address] [employer]: Stephan Darby MD Immature granulocytes/100 WBC (Bld) 0 % Normal 0 [facility] Comment on above: Performed By: #### C DP, LACTIC, BMPX, TAYLOR, CK #### [address] [address] [employer]: Stephan Darby MD Lymphocytes (Bld) [#/Vol] 1.76 10*3/uL Normal 1.10-3.70 [facility] Comment on above: Performed By: #### C DP, LACTIC, BMPX, TAYLOR, CK #### [address] [address] [employer]: Stephan Darby MD Lymphocytes/100 WBC (Bld) 28 % Normal 24-43 [facility] Comment on above: Performed By: #### C DP, LACTIC, BMPX, TAYLOR, CK #### [address] [address] [employer]: Stephan Darby MD MCH (RBC) [Entitic mass] 32.4 pg Normal 25.2-33.5 [facility] Comment on above: Performed By: #### C DP, LACTIC, BMPX, TAYLOR, CK #### [address] [address] [employer]: Stephan Darby MD MCHC (RBC) [Mass/Vol] 32.2 g/dL Normal 28.4-34.8 [facility] Comment on above: Performed By: #### C DP, LACTIC, BMPX, TAYLOR, CK #### [address] [address] [employer] Operator: Stephan Darby MD MCV (RBC) [Entitic vol] 100.5 fL Normal 82.6-102.9 [facility] Comment on above: Performed By: #### C DP, LACTIC, BMPX, TAYLOR, CK #### [address] [address] [employer] Operator: Stephan Darby MD Monocytes (Bld) [#/Vol] 0.62 10*3/uL Normal 0.10-1.20 [facility] Comment on above: Performed By: #### C DP, LACTIC, BMPX, TAYLOR, CK #### [address] [address] [employer]: Stephan Darby MD Monocytes/100 WBC (Bld) 10 % Normal 3-12 [facility] Comment on above: Performed By: #### C DP, LACTIC, BMPX, TAYLOR, CK #### [address] [place] [address] [employer]: Stephan Darby MD Neutrophil (Seg) 60 % Normal 36-65 [facility] [place] Comment on above: Performed By: #### C DP, LACTIC, BMPX, TAYLOR, CK #### [address] [address] [employer]: Stephan Darby MD NRBC Automated 0.0 per 100 WBC Normal 0.0 [facility] Comment on above: Performed By: #### C DP, LACTIC, BMPX, TAYLOR, CK #### [address] [address] [employer]: Stephan Darby MD Platelet mean volume (Bld) [Entitic vol] 11.0 fL Normal 8.1-13.5 [facility] Comment on above: Performed By: #### C DP, LACTIC, BMPX, TAYLOR, CK #### [address] [address] [employer] Operator: Stephan Darby MD Platelets (Bld) [#/Vol] 151 10*3/uL Normal 138-453 [facility] Comment on above: Performed By: #### C DP, LACTIC, BMPX, TAYLOR, CK #### [address] [address] [employer] Operator: Stephan Darby MD RBC (Bld) [#/Vol] 3.67 10*6/uL Low 4.21-5.77 [facility] Comment on above: Performed By: #### C DP, LACTIC, BMPX, TAYLOR, CK #### [address] [address] [employer] Operator: Stephan Darby MD WBC (Bld) [#/Vol] 6.2 10*3/uL Normal 3.5-11.3 [facility] Comment on above: Performed By: #### C DP, LACTIC, BMPX, TAYLOR, CK #### [address] [address] [employer]: Stephan Darby MD Creatine Kinaseon 08-30-2022 CK [Catalytic activity/Vol] 4798 U/L High 39-308 [facility] Comment on above: Performed By: #### C DP, LACTIC, BMPX, TAYLOR, CK #### [address] [address] [employer] Operator: Stephan Darby MD CK [Catalytic activity/Vol] 5326 U/L High 39-308 [facility] Comment on above: Performed By: #### C DP, LACTIC, BMPX, TAYLOR, CK #### [address] [address] [employer] Operator: Stephan Darby MD Myoglobinon 08-30-2022 Myoglobin [Mass/Vol] 211 ng/mL High 28-72 [facility] Comment on above: Performed By: #### C DP, LACTIC, BMPX, TAYLOR, CK #### [address] [address] [employer]: Stephan Darby MD Basic Metab w/rfx MGon 08-29 Anion gap [Moles/Vol] 11 mmol/L Normal 9-17 [facility] Comment on above: Performed By: #### C DP, LACTIC, BMPX, TAYLOR, CK #### [address] [address] [employer]: Stephan Darby MD Calcium [Mass/Vol] 7.7 mg/dL Low 8.6-10.4 [facility] Comment on above: Performed By: #### C DP, LACTIC, BMPX, TAYLOR, CK #### [address] [address] [employer] Operator: Stephan Darby MD Chloride [Moles/Vol] 109 mmol/L High 98-107 [facility] Comment on above: Performed By: #### C DP, LACTIC, BMPX, TAYLOR, CK #### [address] [address] [employer] Operator: Stephan Darby MD CO2 [Moles/Vol] 21 mmol/L Normal 20-31 [facility] Comment on above: Performed By: #### C DP, LACTIC, BMPX, TAYLOR, CK #### [address] [address] [employer] Operator: Stephan Darby MD Creatinine [Mass/Vol] 0.80 mg/dL Normal 0.70-1.20 [facility] Comment on above: Performed By: #### C DP, LACTIC, BMPX, TAYLOR, CK #### [address] [address] [employer] Operator: Stephan Darby MD GFR/1.73 sq M.predicted among non-blacks MDRD (S/P/Bld) [Vol rate/Area] mL/min/{1.73_m2} Normal >60 [facility] Comment on above: Result Comment: [...] DP, LACTIC, BMPX, TAYLOR, CK #### [address] [address] [employer] Operator: Stephan Darby MD Glucose [Mass/Vol] 73 mg/dL Normal 70-99 [facility] Comment on above: Performed By: #### C DP, LACTIC, BMPX, TAYLOR, CK #### [address] [address] [employer] Operator: Stephan Darby MD Potassium [Moles/Vol] 3.7 mmol/L Normal 3.7-5.3 [facility] Comment on above: Performed By: #### C DP, LACTIC, BMPX, TAYLOR, CK #### [place] [address] [employer]: Stephan Darby MD Sodium [Moles/Vol] 141 mmol/L Normal 135-144 [facility] Comment on above: Performed By: #### C DP, LACTIC, BMPX, TAYLOR, CK #### [place] [address] [employer] Operator: Stephan Darby MD Urea nitrogen [Mass/Vol] 21 mg/dL High 6-20 [facility] Comment on above: Performed By: #### C DP, LACTIC, BMPX, TAYLOR, CK #### [place] [address] [employer] Operator: Stephan Darby MD CBC with Diffon 08-29-2022 Abs. Basophil 0.04 k/uL Normal 0.00-0.20 [facility] Comment on above: Performed By: #### C DP, LACTIC, BMPX, TAYLOR, CK #### [place] [address] [employer] Operator: Stephan Darby MD Abs.Imm.Granulocyt e <0.03 Normal 0.00-0.30 [facility] Comment on above: Performed By: #### C DP, LACTIC, BMPX, TAYLOR, CK #### [place] [address] [employer] Operator: Stephan Darby MD Abs.Neutrophil (Seg) 4.89 k/uL Normal 1.50-8.10 [facility] Comment on above: Performed By: #### C DP, LACTIC, BMPX, TAYLOR, CK #### [address] [address] [employer] Operator: Stephan Darby MD Basophils/100 WBC (Bld) 1 % Normal 0-2 [facility] Comment on above: Performed By: #### C DP, LACTIC, BMPX, TAYLOR, CK #### [address] [address] [employer] Operator: Stephan Darby MD Eosinophils (Bld) [#/Vol] 0.07 10*3/uL Normal 0.00-0.44 [facility] Comment on above: Performed By: #### C DP, LACTIC, BMPX, TAYLOR, CK #### [place] [address] [employer] Operator: Stephan Darby MD Eosinophils/100 WBC (Bld) 1 % Normal 1-4 [facility] Comment on above: Performed By: #### C DP, LACTIC, BMPX, TAYLOR, CK #### [place] [address] [employer] Operator: Stephan Darby MD Erythrocyte distribution width (RBC) [Ratio] 13.2 % Normal 11.8-14.4 [facility] Comment on above: Performed By: #### C DP, LACTIC, BMPX, TAYLOR, CK #### [place] [address] [employer] Operator: Stephan Darby MD Hematocrit (Bld) [Volume fraction] 40.4 % Low 40.7-50.3 [facility] Comment on above: Performed By: #### C DP, LACTIC, BMPX, TAYLOR, CK #### [address] [address] [employer] Operator: Stephan Darby MD Hemoglobin (Bld) [Mass/Vol] 12.7 g/dL Low 13.0-17.0 [facility] Comment on above: Performed By: #### C DP, LACTIC, BMPX, TAYLOR, CK #### [address] [address] [employer] Operator: Stephan Darby MD Immature granulocytes/100 WBC (Bld) 0 % Normal 0 [facility] Comment on above: Performed By: #### C DP, LACTIC, BMPX, TAYLOR, CK #### [place] [address] [employer] Operator: Stephan Darby MD Lymphocytes (Bld) [#/Vol] 2.36 10*3/uL Normal 1.10-3.70 [facility] Comment on above: Performed By: #### C DP, LACTIC, BMPX, TAYLOR, CK #### [address] [address] [employer] Operator: Stephan Darby MD Lymphocytes/100 WBC (Bld) 29 % Normal 24-43 [facility] Comment on above: Performed By: #### C DP, LACTIC, BMPX, TAYLOR, CK #### [address] [address] [employer] Operator: Stephan Darby MD MCH (RBC) [Entitic mass] 32.3 pg Normal 25.2-33.5 [facility] Comment on above: Performed By: #### C DP, LACTIC, BMPX, TAYLOR, CK #### [place] [address] [employer] Operator: Stephan Darby MD MCHC (RBC) [Mass/Vol] 31.4 g/dL Normal 28.4-34.8 [facility] Comment on above: Performed By: #### C DP, LACTIC, BMPX, TAYLOR, CK #### [address] [address] [employer] Operator: Stephan Darby MD MCV (RBC) [Entitic vol] 102.8 fL Normal 82.6-102.9 [facility] Comment on above: Performed By: #### C DP, LACTIC, BMPX, TAYLOR, CK #### [address] [address] [employer] Operator: Stephan Darby MD Monocytes (Bld) [#/Vol] 0.72 10*3/uL Normal 0.10-1.20 [facility] Comment on above: Performed By: #### C DP, LACTIC, BMPX, TAYLOR, CK #### [place] [address] [employer] Operator: Stephan Darby MD Monocytes/100 WBC (Bld) 9 % Normal 3-12 [facility] Comment on above: Performed By: #### C DP, LACTIC, BMPX, TAYLOR, CK #### [place] [address] [employer] Operator: Stephan Darby MD Neutrophil (Seg) 60 % Normal 36-65 [facility] [place] Comment on above: Performed By: #### C DP, LACTIC, BMPX, TAYLOR, CK #### [place] [address] [employer] Operator: Stephan Darby MD NRBC Automated 0.0 per 100 WBC Normal 0.0 [facility] Comment on above: Performed By: #### C DP, LACTIC, BMPX, TAYLOR, CK #### [place] [address] [employer] Operator: Stephan Darby MD Platelet mean volume (Bld) [Entitic vol] 10.4 fL Normal 8.1-13.5 [facility] Comment on above: Performed By: #### C DP, LACTIC, BMPX, TAYLOR, CK #### [address] [address] [employer] Operator: Stephan Darby MD Platelets (Bld) [#/Vol] 162 10*3/uL Normal 138-453 [facility] Comment on above: Performed By: #### C DP, LACTIC, BMPX, TAYLOR, CK #### [address] [address] [employer] Operator: Stephan Darby MD RBC (Bld) [#/Vol] 3.93 10*6/uL Low 4.21-5.77 [facility] Comment on above: Performed By: #### C DP, LACTIC, BMPX, TAYLOR, CK #### [address] [address] [employer] Operator: Stephan Darby MD WBC (Bld) [#/Vol] 8.1 10*3/uL Normal 3.5-11.3 [facility] Comment on above: Performed By: #### C DP, LACTIC, BMPX, TAYLOR, CK #### [address] [address] [employer] Operator: Stephan Darby MD Creatine Kinaseon 08-29-2022 CK [Catalytic activity/Vol] 7753 U/L High 39-308 [facility] Comment on above: Performed By: #### C DP, LACTIC, BMPX, TAYLOR, CK #### [address] [address] [employer] Operator: Stephan Darby MD Lactic Acidon 08-29-2022 Lactic Acid,Whole Bl 1.6 mmol/L Normal 0.7-2.1 [facility] Comment on above: Performed By: #### C DP, LACTIC, BMPX, TAYLOR, CK #### [address] [address] [employer] Operator: Stephan Darby MD MRSA, DNA, Nasalon MRSA, DNA, Nasal Negative Normal NEG [facility] Comment on above: Result Comment: NEGA TIVE: [...] DP, LACTIC, BMPX, TAYLOR, CK #### [address] [id number] [employer] Operator: Stephan Darby MD Myoglobinon 08-29-2022 Myoglobin [Mass/Vol] 1004 ng/mL High 28-72 [facility] Comment on above: Performed By: #### C DP, LACTIC, BMPX, TAYLOR, CK #### [address] [address] [employer] Operator: Stephan Darby MD Troponinon 08-29-2022 Troponin, High Sens 96 ng/L Critically high 0-22 [facility] Comment on above: Result Comment: High Sensitivity Troponin values cannot be compared with other Troponin methodologies. Patients with high levels of Biotin oral intake (i.e >5mg/day) may have falsely decreased Troponin levels. Samples collected within 8 hours of biotin intake may require additional information for diagnosis. Previous Alert Value Reported Performed By: #### T ROPI #### [address] [address] [employer] Operator: Stephan Darby MD Vancomycin Troughon 08-29-20 Vancomycin Trough 12.5 ug/mL Normal 10.0-20.0 [facility] Comment on above: Result Comment: High er trough serum vancomycin concentrations of 15-20 ug/mL are recommended for complicated infections such as bacteremia, endocarditis, osteomyelitis, meningitis, and hospital acquired pneumonia. Performed By: #### V NCT #### [address] [address] [employer] Operator: Stephan Darby MD Ammoniaon 08-28-2022 Ammonia (P) [Moles/Vol] 41 umol/L Normal 16-60 [facility] Comment on above: Performed By: #### U MICAO, UAX #### [address] [address] [employer] Operator: Stephan Darby MD CBC with Diffon 08-28-2022 Abs. Basophil <0.03 Normal 0.00-0.20 [facility] Comment on above: Performed By: #### U MICAO, UAX #### [address] [address] [employer] Operator: Stephan Darby MD Abs. Eosinophil <0.03 Normal 0.00-0.44 [facility] Comment on above: Performed By: #### U NOHEMYO, UAX #### [facility] [employer] [address] [place] [address] [employer] Operator: Stephan Darby MD Abs.Imm.Granulocyt e 0.06 k/uL Normal 0.00-0.30 [facility] Comment on above: Performed By: #### U IBETH, UAX #### [address] [address] [employer] Operator: Stephan Darby MD Abs.Neutrophil (Seg) 12.56 k/uL High 1.50-8.10 [facility] Comment on above: Performed By: #### U NOHEMYO, UAX #### [facility] [employer] [address] [place] [address] [employer] Operator: Stephan Darby MD Basophils/100 WBC (Bld) 0 % Normal 0-2 [facility] Comment on above: Performed By: #### U MICAO, UAX #### [facility] [employer] [address] [place] [address] [employer] Operator: Stephan Darby MD Eosinophils/100 WBC (Bld) 0 % Low 1-4 [facility] Comment on above: Performed By: #### U MICAO, UAX #### [facility] [employer] [address] [place] [address] [employer] Operator: Stephan Darby MD Erythrocyte distribution width (RBC) [Ratio] 13.2 % Normal 11.8-14.4 [facility] Comment on above: Performed By: #### U IBETH UAX #### [address] [address] [employer] Operator: Stephan Darby MD Hematocrit (Bld) [Volume fraction] 40.5 % Low 40.7-50.3 [facility] Comment on above: Performed By: #### U IBETH UAX #### [facility] [employer] [address] [place] [address] [employer] Operator: Stephan Darby MD Hemoglobin (Bld) [Mass/Vol] 13.2 g/dL Normal 13.0-17.0 [facility] Comment on above: Performed By: #### Larisa CRISTINA UAX #### [address] [address] [employer] Operator: Stephan Darby MD Immature granulocytes/100 WBC (Bld) 0 % Normal 0 [facility] Comment on above: Performed By: #### Larisa CRISTINA UAX #### [address] [address] [employer] Operator: Stephan Darby MD Lymphocytes (Bld) [#/Vol] 1.42 10*3/uL Normal 1.10-3.70 [facility] Comment on above: Performed By: #### U IBETH UAX #### [facility] [employer] [address] [place] [address] [employer] Operator: Stephan Darby MD Lymphocytes/100 WBC (Bld) 10 % Low 24-43 [facility] Comment on above: Performed By: #### U IBETH, UAX #### [facility] [employer] [address] [place] [address] [employer] Operator: Stephan Darby MD MCH (RBC) [Entitic mass] 32.3 pg Normal 25.2-33.5 [facility] Comment on above: Performed By: #### U IBETH UAX #### [address] [address] [employer] Operator: Stephan Darby MD MCHC (RBC) [Mass/Vol] 32.6 g/dL Normal 28.4-34.8 [facility] Comment on above: Performed By: #### U IBETH UAX #### [address] [address] [employer] Operator: Stephan Darby MD MCV (RBC) [Entitic vol] 99.0 fL Normal 82.6-102.9 [facility] Comment on above: Performed By: #### U IBETH UAX #### [address] [address] [employer] Operator: Stephan Darby MD Monocytes (Bld) [#/Vol] 0.89 10*3/uL Normal 0.10-1.20 [facility] Comment on above: Performed By: #### U IBETH UAX #### [address] [address] [employer] Operator: Stephan Darby MD Monocytes/100 WBC (Bld) 6 % Normal 3-12 [facility] Comment on above: Performed By: #### U IBETH UAX #### [address] [address] [employer] Operator: Stephan Darby MD Neutrophil (Seg) 84 % High 36-65 [facility] Comment on above: Performed By: #### U IBETH, UAX #### [facility] [employer] [address] [place] [address] [employer] Operator: Stephan Darby MD NRBC Automated 0.0 per 100 WBC Normal 0.0 [facility] Comment on above: Performed By: #### U MICAO, UAX #### [address] [address] [employer] Operator: Stephan Darby MD Platelet mean volume (Bld) [Entitic vol] 9.9 fL Normal 8.1-13.5 [facility] Comment on above: Performed By: #### U MICAO, UAX #### [address] [address] [employer] Operator: Stephan Darby MD Platelets (Bld) [#/Vol] 184 10*3/uL Normal 138-453 [facility] Comment on above: Performed By: #### U IBETH, UAX #### [address] [address] [employer] Operator: Stephan Darby MD RBC (Bld) [#/Vol] 4.09 10*6/uL Low 4.21-5.77 [facility] Comment on above: Performed By: #### U IBETH, UAX #### [address] [address] [employer] Operator: Stephan Darby MD WBC (Bld) [#/Vol] 15.0 10*3/uL High 3.5-11.3 [facility] Comment on above: Performed By: #### U IBETH, UAX #### [address] [address] [employer]: Stephan Darby MD Comp Metabolic Pr/rfx MGon 1 10-28-2021 Albumin [Mass/Vol] 3.2 g/dL Low 3.5-5.2 [facility] Comment on above: Performed By: #### C DP, LACTIC, BMPX, TAYLOR, CK #### [address] [address] [employer]: Stephan Darby MD Albumin/Glob Ratio 1.8 Normal 1.0-2.5 [facility] Comment on above: Performed By: #### C DP, LACTIC, BMPX, TAYLOR, CK #### [address] [address] [employer] Operator: Stephan Darby MD Alkaline Phos 46 U/L Normal 40-129 [facility] Comment on above: Performed By: #### C DP, LACTIC, BMPX, TAYLOR, CK #### [address] [address] [employer]: Stephan Darby MD ALT [Catalytic activity/Vol] 396 U/L High 5-41 [facility] Comment on above: Performed By: #### C DP, LACTIC, BMPX, TAYLOR, CK #### [address] [address] [employer]: Stephan Darby MD Anion gap [Moles/Vol] 9 mmol/L Normal 9-17 [facility] Comment on above: Performed By: #### C DP, LACTIC, BMPX, TAYLOR, CK #### [address] [address] [employer]: Stephan Darby MD AST [Catalytic activity/Vol] 456 U/L High <40 [facility] Comment on above: Performed By: #### C DP, LACTIC, BMPX, TAYLOR, CK #### [address] [address] [employer]: Stephan Darby MD Bilirubin [Mass/Vol] 0.2 mg/dL Low 0.3-1.2 [facility] Comment on above: Performed By: #### C DP, LACTIC, BMPX, TAYLOR, CK #### [address] [address] [employer]: Stephan Darby MD Calcium [Mass/Vol] 7.6 mg/dL Low 8.6-10.4 [facility] Comment on above: Performed By: #### C DP, LACTIC, BMPX, TAYLOR, CK #### [address] [address] [employer]: Stephan Darby MD Chloride [Moles/Vol] 106 mmol/L Normal 98-107 [facility] Comment on above: Performed By: #### C DP, LACTIC, BMPX, TAYLOR, CK #### [address] [address] [employer]: Stephan Darby MD CO2 [Moles/Vol] 22 mmol/L Normal 20-31 [facility] Comment on above: Performed By: #### C DP, LACTIC, BMPX, TAYLOR, CK #### [address] [address] [employer]: Stephan Darby MD Creatinine [Mass/Vol] 1.20 mg/dL Normal 0.70-1.20 [facility] Comment on above: Performed By: #### C DP, LACTIC, BMPX, TAYLOR, CK #### [address] [address] [employer]: Stephan Darby MD GFR/1.73 sq M.predicted among non-blacks MDRD (S/P/Bld) [Vol rate/Area] mL/min/{1.73_m2} Normal >60 [facility] Comment on above: Result Comment: [...] DP, LACTIC, BMPX, TAYLOR, CK #### [address] [id number] [employer]: Stephan Darby MD Glucose [Mass/Vol] 146 mg/dL High 70-99 [facility] Comment on above: Performed By: #### C DP, LACTIC, BMPX, TAYLOR, CK #### [facility] [employer] [address] [place] [id number] Paint Striping Machine Operator: Stephan Darby MD Potassium [Moles/Vol] 4.4 mmol/L Normal 3.7-5.3 [facility] Comment on above: Performed By: #### C DP, LACTIC, BMPX, TAYLOR, CK #### [facility] [employer] [address] [place] [address] [employer] Striping Machine Operator: Stephan Darby MD Protein [Mass/Vol] 5.0 g/dL Low 6.4-8.3 [facility] Comment on above: Performed By: #### C DP, LACTIC, BMPX, TAYLOR, CK #### [facility] [employer] [address] [place] [address] [employer] Striping Machine Operator: Stephan Darby MD Sodium [Moles/Vol] 137 mmol/L Normal 135-144 [facility] Comment on above: Performed By: #### C DP, LACTIC, BMPX, TAYLOR, CK #### [facility] [employer] [address] [place] [address] [employer] Striping Machine Operator: Stephan Darby MD Urea nitrogen [Mass/Vol] 31 mg/dL High 6-20 [facility] Comment on above: Performed By: #### C DP, LACTIC, BMPX, TAYLOR, CK #### [facility] [employer] [address] [place] [address] [employer]ing Machine Operator: Stephan Darby MD Lactic Acidon 08-28-2022 Lactic Acid,Whole Bl 1.0 mmol/L Normal 0.7-2.1 [facility] Comment on above: Performed By: #### U MICAO, UAX #### [facility] [employer] [address] [place] [address] [employer] Striping Machine Operator: Stephan Darby MD Lipaseon 08-28-2022 Lipase [Catalytic activity/Vol] 36 U/L Normal 13-60 [facility] Comment on above: Performed By: #### Larisa CRISTINA UAX #### [facility] [place] [address] Paint Striping Machine Operator: Stephan Darby MD MRSA, DNA, Nasalon Specimen Description .NASAL SWAB Normal [facility] Comment on above: Performed By: #### C DP, LACTIC, BMPX, TAYLOR, CK #### [facility] [place] [address] Paint Striping Machine Operator: Stephan Darby MD Phosphorus, Inorg.on 022 Phosphorus, Inorg. 3.7 mg/dL Normal 2.5-4.5 [facility] Comment on above: Performed By: #### SHELDON GUERINX #### [facility] [address] [place] [address] Paint Striping Machine Operator: Stephan Darby MD Thyroid Stim. Horm.on 2021 Thyroid Stim. Horm. 0.30 uIU/mL Normal 0.30-5.00 [facility] Comment on above: Performed By: #### Larisa CRISTINA UAX #### [address] [address] Paint Striping Machine Operator: Stephan Darby MD Troponinon 08-28-2022 Troponin, High Sens 78 ng/L Critically high 0-22 [facility] Comment on above: Result Comment: High Sensitivity Troponin values cannot be compared with other Troponin methodologies. Patients with high levels of Biotin oral intake (i.e >5mg/day) may have falsely decreased Troponin levels. Samples collected within 8 hours of biotin intake may require additional information for diagnosis. Performed By: #### C DP, LACTIC, BMPX, TAYLOR, CK #### [address] [address] [employer] Striping Machine Operator: Stephan Darby MD UA w/Reflex Cultureon 2021 Bilirubin, SemiQt,Ur Negative Normal NEG [facility] Comment on above: Performed By: #### U MICAO, UAX #### [facility] [address] [place] [address] Paint Striping Machine Operator: Stephan Darby MD Blood, Urine LARGE Abnormal NEG [facility] Comment on above: Performed By: #### U MICAO, UAX #### [facility] [address] [place] [address] Paint Striping Machine Operator: Stephan Darby MD Clarity (U) Clear Normal CLEAR [facility] Comment on above: Performed By: #### U MICAO, UAX #### [facility] [address] [place] [address] Paint Striping Machine Operator: Stephan Darby MD Color (U) Yellow Normal YEL [facility] Comment on above: Performed By: #### U MICAO, UAX #### [facility] [address] [place] [address] Paint Striping Machine Operator: Stephan Darby MD Glucose Ql (U) Negative Normal NEG [facility] Comment on above: Performed By: #### U MICAO, UAX #### [facility] [address] [place] [address] Paint Striping Machine Operator: Stephan Darby MD Ketones Ql (U) Negative Normal NEG [facility] Comment on above: Performed By: #### U MICAO, UAX #### [facility] [address] [place] [address] Paint Striping Machine Operator: Stephan Darby MD Leukocyte esterase Test strip Ql (U) MODERATE Abnormal NEG [facility] Comment on above: Performed By: #### U MICAO, UAX #### [facility] [address] [place] [address] Paint Striping Machine Operator: Stephan Darby MD Nitrite,Ur Negative Normal NEG [facility] Comment on above: Performed By: #### U MICAO, UAX #### [address] [address] Paint Striping Machine Operator: Stephan Darby MD PH,Ur 5.0 Normal 5.0-8.0 [facility] Comment on above: Performed By: #### U MICAO, UAX #### [address] [address] Paint Striping Machine Operator: Stephan Darby MD Protein Ql (U) Negative Normal NEG [facility] Comment on above: Performed By: #### U MICAO, UAX #### [address] [address] Paint Striping Machine Operator: Stephan Darby MD Spec. Leon,Ur 1.021 Normal 1.005-1.030 [facility] Comment on above: Performed By: #### U MICAO, UAX #### [address] [address] Paint Striping Machine Operator: Stephan Darby MD Urobilinogen,Ur Normal Normal NORM [facility] Comment on above: Performed By: #### U MICAO, UAX #### [address] [address] Paint Striping Machine Operator: Stephan Darby MD Urinalysis,Microon 2 Casts 5 TO 10 HYALINE Normal 0-8 [facility] Comment on above: Result Comment: Refe rence range defined for non-centrifuged specimen. Performed By: #### U MICAO, UAX #### [address] [address] Paint Striping Machine Operator: Stephan Darby MD Urine RBC's 0 TO 2 Normal 0-4 [facility] Comment on above: Result Comment: Refe rence range defined for non-centrifuged specimen. Performed By: #### U MICAO, UAX #### [facility] [address] [place] [address] Paint Striping Machine Operator: Stephan Darby MD Urine WBC's 2 TO 5 Normal 0-5 [facility] Comment on above: Performed By: #### U MICAO, UAX #### [facility] [address] [place] [address] Paint Striping Machine Operator: Stephan Darby MD Vitamin B12on 08-28-2022 Cobalamin (Vitamin B12) [Mass/Vol] 1014 pg/mL Normal 232-1245 [facility] Comment on above: Performed By: #### U NOHEMYO, UAX #### [facility] [address] [place] [address] Paint Striping Machine Operator: Stephan Darby MD XR WRIST LEFT (MIN 3 VIEWS)o n 07-12-2022 Unremarkable left wrist. [facility] EXAMINATION: XRAY VIEWS OF THE LEFT WRIST 07/12/2022 3:24 pm COMPARISON: June 21, 2022. HISTORY: ORDERING SYSTEM PROVIDED HISTORY: Unspecified sprain of left wrist, subsequent encounter TECHNOLOGIST PROVIDED HISTORY: SYSTOC ORDER ID:->[id number] FINDINGS: Frontal, lateral, and oblique view radiographs of the left wrist were obtained. Bone mineralization is normal. The osseous structures are intact without acute fracture or destructive abnormality. Carpal joint relationships are maintained. No significant degenerative findings. No appreciable soft tissue abnormality. [facility] Oleksandr Smith MD - 07/12/2022 EXAMINATION: XRAY VIEWS OF THE LEFT WRIST 07/12/2022 3:24 pm COMPARISON: June 21, 2022. HISTORY: ORDERING SYSTEM PROVIDED HISTORY: Unspecified sprain of left wrist, subsequent encounter TECHNOLOGIST PROVIDED HISTORY: SYSTOC ORDER ID:->[id number] FINDINGS: Frontal, lateral, and oblique view radiographs of the left wrist were obtained. Bone mineralization is normal. The osseous structures are intact without acute fracture or destructive abnormality. Carpal joint relationships are maintained. No significant degenerative findings. No appreciable soft tissue abnormality. IMPRESSION: Unremarkable left wrist. [facility] [employer] Phone: Radiology Study observation (narrative) [facility] [employer] Phone: XR WRIST LEFT (MIN 3 VIEWS)O rdered By: Oleksandr Smith on 07-12-2022 [facility] [employer] Phone: CBC AUTO DIFFon 02-05-2021 BASO # 0.1 103/ul Normal 0.0-0.1 [facility] Comment on above: Performed By: #### C BC #### [facility] [address] [place], [place] [id number] Thaddeus Nadya Basophils/100 WBC (Bld) 0.6 % Normal 0.2-2.0 [facility] Comment on above: Performed By: #### C BC #### [facility] [address] [place] [address] Thaddeus Nadya EO # 0.1 103/ul Normal 0.0-0.7 [facility] Comment on above: Performed By: #### C BC #### [facility] [address] [place], [place] [address] Thaddeus Nadya Eosinophils/100 WBC (Bld) 1.3 % Normal 0.9-7.0 [facility] Comment on above: Performed By: #### C BC #### [facility] [address] [place], [place] [address] Thaddeus Nadya Erythrocyte distribution width (RBC) [Ratio] 12.8 % Normal 11.0-15.0 [facility] Comment on above: Performed By: #### C BC #### [facility] [address] [place], [place] [address] Thaddeus Nadya Hematocrit (Bld) [Volume fraction] 42.4 % Normal 42.0-54.0 [facility] Comment on above: Performed By: #### C BC #### [facility] [address] [place], [place] [address] Thaddeus Nadya Hemoglobin (Bld) [Mass/Vol] 13.7 g/dL Critically low 14.0-18.0 [facility] Comment on above: Performed By: #### C BC #### [facility] [address] [place] [address] Thaddeus Nadya IG # 0.03 10e3/ul Normal 0.00-0.03 [facility] Comment on above: Performed By: #### C BC #### [facility] [address] [place] [address] Thaddeus Nadya IG % 0.4 % Normal 0.0-0.5 [facility] Comment on above: Performed By: #### C BC #### [facility] [address] [place] [address] Thaddeus Nadya LYMPH # 1.9 103/ul Normal 1.2-3.8 [facility] Comment on above: Performed By: #### C BC #### [facility] [address] [place] [address] Thaddeus Nadya Lymphocytes/100 WBC (Bld) 24.3 % Normal 20.5-60.0 [facility] Comment on above: Performed By: #### C BC #### [facility] [address] [place] [address] Thaddeus Nadya MANUAL DIFF REQ NO Normal [facility] Comment on above: Performed By: #### C BC #### [facility] [address] [place], [place] [address] Thaddeus Nadya MCH (RBC) [Entitic mass] 31.1 pg Normal 25.9-34.0 [facility] Comment on above: Performed By: #### C BC #### [facility] [address] [place] [address] Thaddeus Nadya MCHC (RBC) [Mass/Vol] 32.3 g/dL Normal 29.9-35.2 [facility] Comment on above: Performed By: #### C BC #### [facility] [address] [place] [address] Thaddeus Nadya MCV (RBC) [Entitic vol] 96.4 fL Critically high 80.0-94.0 [facility] Comment on above: Performed By: #### C BC #### [facility] [address] [place] [address] Thaddeus Nadya MONO # 0.5 103/ul Normal 0.3-0.8 [facility] Comment on above: Performed By: #### C BC #### [facility] [address] [place], [place] [address] Thaddeus Covington Monocytes/100 WBC (Bld) 6.7 % Normal 1.7-12.0 [facility] Comment on above: Performed By: #### C BC #### [facility] [address] [place] [address] Thaddeus Covington NEUT # 5.2 103/ul Normal 1.4-6.5 [facility] Comment on above: Performed By: #### C BC #### [facility] [address] [place] [address] Thaddesu Covington Neutrophils/100 WBC (Bld) 66.7 % Normal 43.0-75.0 [facility] Comment on above: Performed By: #### C BC #### [facility] [address] [place], [place] [address] Thaddues [place] Platelet mean volume (Bld) [Entitic vol] 9.1 fL Critically low 9.5-13.5 [facility] Comment on above: Performed By: #### C BC #### [facility] [address] [place], [place] [address] Thaddeus Covington PLT 266 103/ul Normal 150-450 [facility] Comment on above: Performed By: #### C BC #### [facility] [address] [place], [place] [address] Thaddeus Bermudezen RBC 4.40 106/ul Critically low 4.70-6.10 [facility] Comment on above: Performed By: #### C BC #### [facility] [address] [place], [place] [address] Thaddeus Nadya WBC 7.7 103/ul Normal 4.0-11.0 [facility] Comment on above: Performed By: #### C BC #### [facility] [address] [place], [place] [address] Thaddeus Covington ETHANOL (BLD ALC)on 02-06-20 ALC NOTE NOTE: 80 mg/dl is th e legal limit for a blood alcohol level Normal [facility] Comment on above: Performed By: #### E TH #### [facility] [address] [place], [place] [address] Thaddeusnavjot [place] Ethanol [Mass/Vol] mg/dL Normal [facility] Comment on above: Performed By: #### E TH #### [facility] [address] [place], [place] [address] Thaddeus Covington PROF 14(COMP METB)on 021 Albumin [Mass/Vol] 3.6 g/dL Normal 3.5-5.0 [facility] Comment on above: Performed By: #### C MP #### [facility] [address] [place], [place] [address] Thaddeus Nadya Albumin/Globulin [Mass ratio] 1.0 {ratio} Normal [facility] Comment on above: Performed By: #### C MP #### [facility] [address] [place] [address] Thaddeus Nadya ALP [Catalytic activity/Vol] 48 U/L Normal 38-126 [facility] Comment on above: Performed By: #### C MP #### [facility] [address] [place] [address] Thaddeus Nadya ALT [Catalytic activity/Vol] 36 U/L Normal 21-72 [facility] Comment on above: Performed By: #### C MP #### [facility] [address] [place], [place] [address] Thaddeus Nadya Anion gap [Moles/Vol] 7.4 mmol/L Normal [facility] Comment on above: Performed By: #### C MP #### [facility] [address] [place] [address] Thaddeus Nadya AST [Catalytic activity/Vol] 18 U/L Normal 17-59 [facility] Comment on above: Performed By: #### C MP #### [facility] [address] [place] [address] Thaddeus Nadya Bilirubin [Mass/Vol] 0.3 mg/dL Normal 0.2-1.3 [facility] Comment on above: Performed By: #### C MP #### [facility] [address] [id number] Thaddeus Nadya Calcium [Mass/Vol] 8.9 mg/dL Normal 8.4-10.2 [facility] Comment on above: Performed By: #### C MP #### [facility] [address] [id number] Thaddeus Nadya Chloride [Moles/Vol] 102 mmol/L Normal 98-107 [facility] Comment on above: Performed By: #### C MP #### [facility] [address] [place] [address] Thaddeus Nadya CO2 [Moles/Vol] 33.5 mmol/L Critically high 22.0-30.0 [facility] Comment on above: Performed By: #### C MP #### [facility] [address] [place] [address] Thaddeus Nadya Creatinine [Mass/Vol] 1.22 mg/dL Normal 0.66-1.25 [facility] Comment on above: Performed By: #### C MP #### [facility] [address] [place], [place] [address] Thaddeus Nadya EGFR-AF MAURITANIAN >60 Normal >=60 [facility] Comment on above: Performed By: #### C MP #### [facility] [address] [place], [place] [address] Thaddeus Nadya EGFR-NON AF MAURITANIAN >60 Normal >=60 [facility] Comment on above: Performed By: #### C MP #### [facility] [address] [place], [place] [address] Thaddeus Nadya Globulin (S) [Mass/Vol] 3.7 g/dL Normal [facility] Comment on above: Performed By: #### C MP #### [facility] [address] [place], [place] [address] Thaddeus Nadya Glucose [Mass/Vol] 187 mg/dL Critically high 74-106 [facility] Comment on above: Performed By: #### C MP #### [facility] [address] [place] [address] Thaddeus Nadya Potassium [Moles/Vol] 3.9 mmol/L Normal 3.4-5.0 [facility] Comment on above: Performed By: #### C MP #### [facility] [address] [id number] Thaddeus Nadya Protein [Mass/Vol] 7.3 g/dL Normal 6.1-8.2 [facility] Comment on above: Performed By: #### C MP #### [facility] [address] [id number] Thaddeus Nadya Sodium [Moles/Vol] 139 mmol/L Normal 137-145 [facility] Comment on above: Performed By: #### C MP #### [facility] [address] [id number] Thaddeus Nadya Urea nitrogen [Mass/Vol] 16.0 mg/dL Normal 9.0-20.0 [facility] Comment on above: Performed By: #### C MP #### [facility] [address] [place], [place] [address] Thaddeus Nadya Urea nitrogen/Creatinin e [Mass ratio] 13.1 mg/mg Normal [facility] Comment on above: Performed By: #### C MP #### [facility] [address] [place], [place] [address] Thaddeus Nadya XR HAND LT MIN 3Von 02-06-20 21 [...] by: NAVJOT DAMIAN Date: 2021-02-05 20:44 Normal [facility] Vital Signs Date Time Vital Sign Value Performing Clinician Migdalia alvarez 07-31-2022 09:21-0400 Body mass index (BMI) [Ratio] 24.39 kg/m2 Silvia Jaramillo DO Work Phone: [facility] 07-31-2022 09:21-0400 Body temperature 96.4 [degF] Silvia Clint DO Work Phone: [facility] 07-31-2022 09:21-0400 Body weight 77.11 kg Silvia Clint DO Work Phone: [facility] 07-31-2022 09:21-0400 Diastolic blood pressure 75 mm[Hg] Silvia Clint DO Work Phone: [facility] 07-31-2022 09:21-0400 Heart rate 103 /min Silvia Clint DO Work Phone: [facility] 07-31-2022 09:21-0400 Respiratory rate 18 /min Silvia Clint DO [facility] 07-31-2022 09:21-0400 SaO2% (BldA) [Mass fraction] 96 % Silvia Clint DO Work Phone[facility] 07-31-2022 09:21-0400 Systolic blood pressure 122 mm[Hg] Silvia Clint DO Work Phone: [facility] Encounters Encounter Date Encounter Type Care Provider Facility Start: 01-12-2024 End: 01-13-2024 Emergency department patient visit LISANDRA THAKKAR [facility] Start: 11-05-2023 End: 11-05-2023 [facility]: 09-01-2022 End: 09-05-2022 Evaluation and management of inpatient GIULIA Milagros TYJONG [facility] Start: 08-28-2022 End: 09-01-2022 Evaluation and management of inpatient ASHWINI PEACOCK [facility] Start: 07-31-2022 End: 07-31-2022 Emergency department patient visit Silvia Penas DO Work Phone: [facility] Comment on above: Pain, dental (Primar y Dx); Dental caries Start: 07-12-2022 End: 07-14-2022 Subsequent hospital visit by physician Junito Hart Dr Room 4 [facility] Comment on above: Unspecified sprain o f left wrist, subsequent encounter Start: 02-05-2021 End: 02-06-[address] CATALINA DO Facility:[facility] Start: 06-07-2020 End: 06-07-[address] VIKAS BRYANT Facility:[facility] Procedures Date Procedure Procedure Detail Performing Clinician Start: 07-12-2022 Radex wrist complete minimum 3 views 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 Phone: Plan of Treatment Date Care Activity Detail Author Start: 02-05-2031 DTaP/Tdap/Td vaccine (3 - Td or Tdap) DTaP/Tdap/Td vaccine (3 - Td or Tdap) [facility] Start: 05-02-2022 Influenza vaccination Flu vaccine (# 1) [facility] Start: 2009 Hepatitis C screening Hepatitis C sc reen [facility] Start: 2006 HIV screening HIV screen [facility] Start: 2003 Depression Screen Depression Screen [facility] Start: 1997 Pneumococcal 0-64 ye ars Vaccine (1 - PCV) Pneumococcal 0-64 years Vaccine (1 - PCV) [facility] Start: 1992 Varicella vaccine (1 of 2 - 2-dose childhood series) Varicella vaccine (1 of 2 - 2-dose childhood series) [facility] Start: 01-09-1992 COVID-19 Vaccine (#1) COVID-19 Vacci ne (#1) [facility] Immunizations Immunization Date Immunization Notes Care Provider Marlen rodriguez 08-07-2002 tetanus toxoid, redu trini diphtheria toxoid, and acellular pertussis vaccine, adsorbed [facility] 4 [facility] Payers Date Payer Category Payer Private Health Insurance [id number] 2022 Unknown RAGHAVENDRA KEMP [id number] 2022-Present [phone] [address] [place] [address] [id number] 1991 Unknown [id number] 1991 Unknown [id number] 1991 Unknown [id number] 1991 Unknown [id number] 1991 Unknown [id number] 1991 Unknown [id number] 1991 Unknown [id number] 1959 Unknown [id number] Social History Date Type Detail Facility Start: 05-07-2018 [facility] [employer] Phone: History of tobacco use Cigarette Smoker B ON [employer] Phone: Start: 05-07-2018 Cigarettes smoked current (pack per day) - Reported 0.5 [employer] Phone: Start: 05-07-2018 Tobacco use and exposure Smoke less tobacco non-user [employer] Phone: Start: 06-21-2022 End: 07-31-2022 Alcohol intake Current non-drinker of alcohol (finding) [employer] Phone: Start: 1990 Sex Assigned At Not on file B ON [employer] Phone: Start: 06-11-2022 End: 07-31-2022 Exposure to SARS-CoV-2 (event) Not sure [facility] Work Phone: Hospital Discharge instructions 07-31-2022 Discharge InstructionsAttachments [...] cannot be sent through Care Everywhere.Periodontal Conditions ([place])Tooth Decay ([place])Tooth Extraction ([place])documented in this encounter [employer] Phone: Evaluation note Note Date & Type Note Facility Evaluation note Diagnosis Unspecified sprain of left wrist, subsequent encounter documented in this encounter [employer] Phone: Evaluation note Note Date & Type Note Facility Evaluation note Diagnosis Pain, dental- Primary Unspecified disorder of the teeth and supporting structures Dental caries Unspecified dental caries documented in this encounter [employer] Phone: Summary Purpose Family History No Family [...] section and content) DATE CREATED AUTHOR 02/10/2021 [facility] DATE CREATED AUTHOR AUTHOR'S ORGANIZ ATION 09/03/2022 [facility] DATE CREATED AUTHOR AUTHOR'S ORGANIZ ATION 09/06/2022 [facility] DATE CREATED AUTHOR AUTHOR'S ORGANIZ ATION 11/07/2023 [facility] Colten myles DATE CREATED AUTHOR AUTHOR'S ORGANIZ ATION 01/13/2024 [facility] Care Teams (unrecognized sec tion and content) 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 [email or web address] provides no warranty or guarantee of the accuracy or completeness of information in this document.
== END 2024-03-04 11:01 | disposition home or self-care (01) ==
PROVIDERS: PCP Family Medicine; Visit Provider Orthopaedic Surgery
DX: Z01.818 Encounter for other preprocedural examination (principal); M75.41 Impingement syndrome of right shoulder
CPT/HCPCS: 80048

== ENCOUNTER 2024-03-18 11:36 | Day surgery (SDC) | payer MEDICAID, SELFPAY ==
[2024-03-04 11:43] VITALS: BP 142/84; PULSE 120; TEMP 36.4; O2SAT 97; BMI 21.7
[2024-03-18] VITALS (8 sets, daily range): BP systolic 118–140; BP diastolic 90–102; PULSE 82–100; TEMP 35.9–36.1; O2SAT 97–100
[2024-03-18 12:06] LABS: Basophils Percent Auto 0.8 % (0.2-2.0); Eosinophils Percent Auto 0.6 % (0.9-7.0); Hematocrit 44.1 % (42.0-54.0); Immature Granulocytes Abs Auto 0.01 10^3/uL (0.00-0.03); Immature Granulocytes Pct Auto 0.2 % (0.0-0.5); Lymphocytes Absolute Auto 0.9 10^3/uL (1.2-3.8); Mean Corpuscular Hemoglobin 30.8 pg (25.9-34.0); Mean Corpuscular Volume 90.6 fL (80.0-94.0); Mean Platelet Volume 9.5 fL (9.5-13.5); Monocytes Absolute Auto 0.5 10^3/uL (0.3-0.8); Monocytes Percent Auto 11.2 % (1.7-12.0); Neutrophils Absolute Auto 3.3 10^3/uL (1.4-6.5); Neutrophils Percent Auto 69.2 % (43.0-75.0); Platelet Count 311 10^3/uL (150-450); Red Blood Count 4.87 10^6/uL (4.70-6.10); Red Cell Distribution Width 12.3 % (11.0-15.0); White Blood Count 4.7 10^3/uL (4.0-11.0)
[2024-03-18] MEDS: LACTATED RINGER'S SOLUTION 1,000 ML 50 ML IV ×2 (12:37→13:54)
[2024-03-18] MEDS: CEFAZOLIN SODIUM/DEXTROSE,ISO 2 GM/50 ML PIGGYBACK IV (13:10)
--- NOTE | 2024-03-18 13:20 | PC.NURSE ---
03/18/2023 (1259) Final timeout completed. Patient placed on monitor and O2 at 2l/min via nc. (1300) Patient positioned and right shoulder draped in sterile technique per Dr. Ty. (1302) Right shoulder landmarked per Dr. Ty with ultrasound. (1302) Right shoulder block started. (1305) Block completed. Patient tolerated it well. See posted vital signs. (1310) Hives noted to left arm at the IV insertion site upto left antecubital area. O2 remains on at 2l/min. Patient denies any SOB. No other hives noted anywhere on the body. Dr. Ty and Dr. Rueda at the bedside and assesses the hives. No new orders received.
[2024-03-18] MEDS: EPINEPHRINE HCL PF 1 MG/ML AMPULE 4 MG IO (14:31)
--- NOTE | 2024-03-18 15:05 | P.ORPRC_ITS ---
Procedure Note Date of procedure: 03/18/24 Pre-op diagnosis: 1. Right shoulder impingement 2. AC joint DJD Post-op diagnosis: same as pre-op (Same and anterior/labral tear, partial- thickness tear of supraspinatus) Procedure: Operative procedure: 1. Right shoulder arthroscopic subacromial decompression 2. Arthroscopic distal clavicle excision 3. Extensive debridement anterior labrum, superior labrum, rotator cuff tear Operation: After informed consent was obtained the patient was brought to the operating room where general anesthetic was administered. Preoperatively regional block was placed. The patient was placed in the beachchair position. Exam under anesthesia the right shoulder revealed full range of motion and no instability. The right shoulder was prepped and draped in the usual sterile fashion. Diagnostic arthroscopy was performed the standard anterior, posterior, lateral arthroscopy portals. Findings included type I tearing of the superior labrum with type I tearing of the anterior labrum. There was a flap of labrum anteriorly that was debrided with the arthroscopic shaver back to stable edge. Superior labrum was debrided to healthy tissue. Articular cartilage of the glenohumeral joint was intact. Biceps tendon did not have any tearing. Subscapularis tendon was intact. Partial-thickness tearing of the supraspinatus tendon with fraying of the articular side which was debrided with the arthroscopic shaver back to stable edge. Less than 20% thickness tear was encountered. Infraspinatus was intact. Axillary recess did not have any loose bodies. Arthroscope was introduced in the subacromial space and there was a very thickened bursal sac which was removed the arthroscopic shaver. Rotator cuff appeared normal. Subacromial spur was visualized and removed with the arthroscopic bur. Distal clavicle was next visualized and found to be arthritic. The distal 7 mm was removed with a bur. Shoulder was drained of arthroscopy fluid. Portals were closed with a nylon suture. Sterile dressing was placed. UltraSling was placed. Patient was awakened and brought to the recovery room in stable condition. There were no intraoperative or immediate postoperative complications. Anesthesia: GETA and regional Surgeon: Johan Thompson Estimated blood loss (mL): 5 Pathology: none sent Condition: stable Disposition: PACU
--- NOTE | 2024-03-18 16:14 | PC.NURSE ---
1550- Right hand/arm remains numb. Hand is pink, warm and dry.
== END 2024-03-18 15:55 | disposition home or self-care (01) ==
PROVIDERS: Anesthesiology; PCP Family Medicine; Visit Provider Orthopaedic Surgery
PROC: (CPT 01630; principal; 2024-03-18 13:00)
DX: M25.811 Other specified joint disorders, right shoulder (principal); M19.011 Primary osteoarthritis, right shoulder; S46.811A Strain of other muscles, fascia and tendons at shoulder and upper arm level, right arm, initial encounter; M75.101 Unspecified rotator cuff tear or rupture of right shoulder, not specified as traumatic; K21.9 Gastro-esophageal reflux disease without esophagitis; I10 Essential (primary) hypertension; F41.9 Anxiety disorder, unspecified; F32.A Depression, unspecified; B19.20 Unspecified viral hepatitis C without hepatic coma; F17.200 Nicotine dependence, unspecified, uncomplicated
CPT/HCPCS: 01630; 29823; 29826; 36415; 64415; 85025; J0690; J1100; J1290; J1885; J2250; J2704; J2710; J2795; J3010

== ENCOUNTER 2024-04-16 12:36 | Outpatient (RCR) | payer MEDICAID, SELFPAY | END 2024-05-21 13:14 | disposition home or self-care (01) | LOC: PT 12:36 | PROVIDERS: PCP Family Medicine; Visit Provider Orthopaedic Surgery | DX: M19.011 Primary osteoarthritis, right shoulder (principal); M25.811 Other specified joint disorders, right shoulder; M75.101 Unspecified rotator cuff tear or rupture of right shoulder, not specified as traumatic | CPT/HCPCS: 97110; 97161 ==